=== PATIENT | female | born 1960 ===

== ENCOUNTER 2023-12-29 10:55 | Outpatient (REF) | payer OTHER, SELFPAY ==
--- NOTE | ~2023-12-29 | XR_ITS ---
EXAMINATION: XR ELBOW, RIGHT CLINICAL INFORMATION: Osteoarthritis. COMPARISON: None available. TECHNIQUE: AP, lateral, and oblique views of the right elbow. FINDINGS: The bones and soft tissues are normal. No fracture or joint effusion. Alignment is anatomic. Joint spaces are maintained. XR/XR elbow LT min 3V IMPRESSION: Normal right elbow. EXAMINATION: XR ELBOW, LEFT CLINICAL INFORMATION: Osteoarthritis. COMPARISON: None available. TECHNIQUE: AP, lateral, and oblique views of the left elbow. FINDINGS: The bones and soft tissues are normal. No fracture or joint effusion. Alignment is anatomic. Joint spaces are maintained. IMPRESSION: Normal left elbow.
--- NOTE | ~2023-12-29 | XR_ITS ---
EXAMINATION: XR ANKLE, RIGHT CLINICAL INFORMATION: Osteoarthritis. COMPARISON: None available. TECHNIQUE: AP, lateral, and mortise views of the right ankle. FINDINGS: Bony alignment and mineralization are normal. The ankle mortise is intact. No fracture or dislocation is seen. There is no right ankle joint effusion. Boehler's angle is normal. There are small posterior and plantar calcaneal spurs. A tiny enthesophyte arises from the medial malleolus. No focal soft tissue swelling, gas or foreign body is seen. XR/XR ankle LT min 3V IMPRESSION: There are small posterior plantar calcaneal spurs. Otherwise, unremarkable examination. EXAMINATION: XR ANKLE, LEFT CLINICAL INFORMATION: Osteoarthritis. COMPARISON: None available. TECHNIQUE: AP, lateral, and mortise views of the left ankle. FINDINGS: Bony alignment and mineralization are normal. The ankle mortise is intact. No fracture or dislocation is seen. There is are small posterior and minimal plantar calcaneal spurs. A tiny enthesophyte arises from the medial malleolus. No focal soft tissue swelling, gas or foreign body is seen. IMPRESSION: There are small calcaneal spurs, as detailed. The examination is otherwise unremarkable.
--- NOTE | ~2023-12-29 | XR_ITS ---
EXAMINATION: XR SHOULDER, RIGHT CLINICAL INFORMATION: Osteoarthritis. COMPARISON: None available. TECHNIQUE: AP external rotation, Grashey, scapular Y, and axillary views of the right shoulder. FINDINGS: Bony alignment and mineralization are normal. The glenohumeral joint is intact and shows very mild osteoarthritic change. The acromioclavicular and coracoclavicular intervals are normal. No fracture or dislocation is seen. A small distal acromial osteophyte is seen, and there is cortical irregularity of the greater tuberosity of the proximal right humerus. No focal soft tissue calcification or foreign body is seen. There is no right pneumothorax. XR/XR shoulder LT min 2V IMPRESSION: 1. There is very mild osteoarthritic change of the right glenohumeral joint. 2. Findings suggest right rotator cuff impingement, without laura calcific tendinitis noted. EXAMINATION: XR SHOULDER, LEFT CLINICAL INFORMATION: Osteoarthritis. COMPARISON: None available. TECHNIQUE: AP external rotation, Grashey, scapular Y, and axillary views of the left shoulder. FINDINGS: Bony alignment and mineralization are normal. The glenohumeral joint is intact. The acromioclavicular and coracoclavicular intervals are normal. No fracture or dislocation is seen. A small distal acromial undersurface osteophyte is seen. There is very mild cortical irregularity of the greater tuberosity of the proximal left humerus. No focal soft tissue calcification or foreign body is seen. There is no left pneumothorax. IMPRESSION: Findings consistent with left rotator cuff impingement, without laura calcific tendinitis seen.
--- NOTE | ~2023-12-29 | XR_ITS ---
EXAMINATION: XR ANKLE, RIGHT CLINICAL INFORMATION: Osteoarthritis. COMPARISON: None available. TECHNIQUE: AP, lateral, and mortise views of the right ankle. FINDINGS: Bony alignment and mineralization are normal. The ankle mortise is intact. No fracture or dislocation is seen. There is no right ankle joint effusion. Boehler's angle is normal. There are small posterior and plantar calcaneal spurs. A tiny enthesophyte arises from the medial malleolus. No focal soft tissue swelling, gas or foreign body is seen. XR/XR ankle RT min 3V IMPRESSION: There are small posterior plantar calcaneal spurs. Otherwise, unremarkable examination. EXAMINATION: XR ANKLE, LEFT CLINICAL INFORMATION: Osteoarthritis. COMPARISON: None available. TECHNIQUE: AP, lateral, and mortise views of the left ankle. FINDINGS: Bony alignment and mineralization are normal. The ankle mortise is intact. No fracture or dislocation is seen. There is are small posterior and minimal plantar calcaneal spurs. A tiny enthesophyte arises from the medial malleolus. No focal soft tissue swelling, gas or foreign body is seen. IMPRESSION: There are small calcaneal spurs, as detailed. The examination is otherwise unremarkable.
--- NOTE | ~2023-12-29 | XR_ITS ---
EXAMINATION: XR ELBOW, RIGHT CLINICAL INFORMATION: Osteoarthritis. COMPARISON: None available. TECHNIQUE: AP, lateral, and oblique views of the right elbow. FINDINGS: The bones and soft tissues are normal. No fracture or joint effusion. Alignment is anatomic. Joint spaces are maintained. XR/XR elbow RT min 3V IMPRESSION: Normal right elbow. EXAMINATION: XR ELBOW, LEFT CLINICAL INFORMATION: Osteoarthritis. COMPARISON: None available. TECHNIQUE: AP, lateral, and oblique views of the left elbow. FINDINGS: The bones and soft tissues are normal. No fracture or joint effusion. Alignment is anatomic. Joint spaces are maintained. IMPRESSION: Normal left elbow.
--- NOTE | ~2023-12-29 | XR_ITS ---
EXAMINATION: XR HAND/WRIST, RIGHT CLINICAL INFORMATION: Osteoarthritis. COMPARISON: None TECHNIQUE: PA, lateral, and oblique views of the right hand and wrist. FINDINGS: Bony alignment and mineralization are normal. There is an ulnar minus variance. No fracture or dislocation is seen. The proximal and distal carpal rows are intact. There is a tiny periarticular calcification adjacent to the interphalangeal joint of the thumb. There is no abnormal bone erosion. No focal soft tissue swelling, gas or foreign body is seen. XR/XR hand wrist LT IMPRESSION: There is minimal osteoarthritic change of the interphalangeal joint of the right thumb. The examination is otherwise unremarkable. EXAMINATION: XR HAND/WRIST, LEFT CLINICAL INFORMATION: Osteoarthritis. COMPARISON: None TECHNIQUE: PA, lateral, and oblique views of the left hand and wrist. FINDINGS: Bony alignment and mineralization are normal. There is an ulnar minus variance. No fracture or dislocation is seen. The proximal and distal carpal rows are intact. There is very mild osteoarthritic change of the interphalangeal joint of the thumb. No abnormal bone erosion is seen. There is no focal soft tissue spleen, gas or foreign body. IMPRESSION: There is very mild osteoarthritic change of the interphalangeal joint of the left thumb. No fracture or dislocation is seen. There is no abnormal bone erosion.
--- NOTE | ~2023-12-29 | XR_ITS ---
EXAMINATION: XR SHOULDER, RIGHT CLINICAL INFORMATION: Osteoarthritis. COMPARISON: None available. TECHNIQUE: AP external rotation, Grashey, scapular Y, and axillary views of the right shoulder. FINDINGS: Bony alignment and mineralization are normal. The glenohumeral joint is intact and shows very mild osteoarthritic change. The acromioclavicular and coracoclavicular intervals are normal. No fracture or dislocation is seen. A small distal acromial osteophyte is seen, and there is cortical irregularity of the greater tuberosity of the proximal right humerus. No focal soft tissue calcification or foreign body is seen. There is no right pneumothorax. XR/XR shoulder RT min 2V IMPRESSION: 1. There is very mild osteoarthritic change of the right glenohumeral joint. 2. Findings suggest right rotator cuff impingement, without laura calcific tendinitis noted. EXAMINATION: XR SHOULDER, LEFT CLINICAL INFORMATION: Osteoarthritis. COMPARISON: None available. TECHNIQUE: AP external rotation, Grashey, scapular Y, and axillary views of the left shoulder. FINDINGS: Bony alignment and mineralization are normal. The glenohumeral joint is intact. The acromioclavicular and coracoclavicular intervals are normal. No fracture or dislocation is seen. A small distal acromial undersurface osteophyte is seen. There is very mild cortical irregularity of the greater tuberosity of the proximal left humerus. No focal soft tissue calcification or foreign body is seen. There is no left pneumothorax. IMPRESSION: Findings consistent with left rotator cuff impingement, without laura calcific tendinitis seen.
--- NOTE | ~2023-12-29 | XR_ITS ---
EXAMINATION: XR FOOT, RIGHT CLINICAL INFORMATION: Osteoarthritis. COMPARISON: None available. TECHNIQUE: AP, lateral, and oblique views of the right foot. FINDINGS: Bony alignment and mineralization are normal. No fracture, dislocation or right ankle joint effusion is seen. Boehler's angle is normal. There are small posterior and plantar calcaneal spurs. No focal soft tissue swelling, gas or foreign body is seen. XR/XR foot LT min 3V IMPRESSION: 1. No fracture, dislocation or right ankle joint effusion is seen. 2. There are small posterior and plantar calcaneal spurs. EXAMINATION: XR FOOT, LEFT CLINICAL INFORMATION: Osteoarthritis. COMPARISON: None available. TECHNIQUE: AP, lateral, and oblique views of the left foot. FINDINGS: Bony alignment and mineralization are normal. No fracture, dislocation or left ankle joint effusion is seen. Boehler's angle is normal. There are small posterior and minimal plantar calcaneal spurs. No focal soft tissue swelling, gas or foreign body is seen. IMPRESSION: 1. No fracture, dislocation or left ankle joint effusion is seen. 2. There are small posterior and minimal plantar calcaneal spurs.
--- NOTE | ~2023-12-29 | XR_ITS ---
EXAMINATION: XR HAND/WRIST, RIGHT CLINICAL INFORMATION: Osteoarthritis. COMPARISON: None TECHNIQUE: PA, lateral, and oblique views of the right hand and wrist. FINDINGS: Bony alignment and mineralization are normal. There is an ulnar minus variance. No fracture or dislocation is seen. The proximal and distal carpal rows are intact. There is a tiny periarticular calcification adjacent to the interphalangeal joint of the thumb. There is no abnormal bone erosion. No focal soft tissue swelling, gas or foreign body is seen. XR/XR hand wrist RT IMPRESSION: There is minimal osteoarthritic change of the interphalangeal joint of the right thumb. The examination is otherwise unremarkable. EXAMINATION: XR HAND/WRIST, LEFT CLINICAL INFORMATION: Osteoarthritis. COMPARISON: None TECHNIQUE: PA, lateral, and oblique views of the left hand and wrist. FINDINGS: Bony alignment and mineralization are normal. There is an ulnar minus variance. No fracture or dislocation is seen. The proximal and distal carpal rows are intact. There is very mild osteoarthritic change of the interphalangeal joint of the thumb. No abnormal bone erosion is seen. There is no focal soft tissue spleen, gas or foreign body. IMPRESSION: There is very mild osteoarthritic change of the interphalangeal joint of the left thumb. No fracture or dislocation is seen. There is no abnormal bone erosion.
--- NOTE | ~2023-12-29 | XR_ITS ---
EXAMINATION: XR FOOT, RIGHT CLINICAL INFORMATION: Osteoarthritis. COMPARISON: None available. TECHNIQUE: AP, lateral, and oblique views of the right foot. FINDINGS: Bony alignment and mineralization are normal. No fracture, dislocation or right ankle joint effusion is seen. Boehler's angle is normal. There are small posterior and plantar calcaneal spurs. No focal soft tissue swelling, gas or foreign body is seen. XR/XR foot RT min 3V IMPRESSION: 1. No fracture, dislocation or right ankle joint effusion is seen. 2. There are small posterior and plantar calcaneal spurs. EXAMINATION: XR FOOT, LEFT CLINICAL INFORMATION: Osteoarthritis. COMPARISON: None available. TECHNIQUE: AP, lateral, and oblique views of the left foot. FINDINGS: Bony alignment and mineralization are normal. No fracture, dislocation or left ankle joint effusion is seen. Boehler's angle is normal. There are small posterior and minimal plantar calcaneal spurs. No focal soft tissue swelling, gas or foreign body is seen. IMPRESSION: 1. No fracture, dislocation or left ankle joint effusion is seen. 2. There are small posterior and minimal plantar calcaneal spurs.
[2023-12-29 13:18] LABS: MANUAL DIFF FLAG NO
[2023-12-29 14:01] LABS: Basophils Percent Auto 0.4 % (0-2); Eosinophils Percent Auto 0.1 % (0-4); Hematocrit 41.6 % (37.0-47.0); Hemoglobin 13.5 g/dl (12.0-16.0); Imm Gran Abs Auto 0.04 X10*3/uL (0.00-0.03); Imm Gran Pct Auto 0.4 % (0.0-0.4); Lymphocytes Absolute Auto 3.1 X10*3/uL (1.2-4.9); Lymphocytes Percent Auto 31.4 % (20-40); Mean Corpuscular HGB Conc 32.5 g/dl (31.0-35.0); Mean Corpuscular Hemoglobin 27.4 pg (27.0-33.0); Mean Corpuscular Volume 84.6 fL (80.0-98.0); Mean Platelet Volume 9.9 fL (9.4-12.3); Monocytes Absolute Auto 0.8 X10*3/uL (0.1-1.2); Monocytes Percent Auto 7.9 % (2-11); Neutrophils Absolute Auto 5.9 x10*3/uL (2.0-8.3); Neutrophils Percent Auto 59.8 % (45-73); Platelet Count 368 X10*3/uL (160-400); Red Blood Count 4.92 X10*6/uL (4.20-5.50); Red Cell Distribution Width 13.7 % (11.0-16.0); White Blood Count 9.9 X10*3/uL (4.8-10.8)
[2023-12-29 14:12] LABS: Estimated Average Glucose 128 mg/dL; Hemoglobin A1c % 6.1 % (<6.0)
[2023-12-29 14:15] LABS: Alanine Aminotransferase 22 U/L (0-31); Albumin Level 4.5 g/dL (3.5-5.0); Alkaline Phosphatase 110 U/L (39-117); Anion Gap 14 (12-20); Aspartate Amino Transferase 27 U/L (5-31); Bilirubin Total 0.6 mg/dL (0.0-1.0); Blood Urea Nitrogen 14 mg/dL (9-16); C Reactive Protein 1.55 mg/dL (< or = 0.50); Calcium 9.9 mg/dL (8.4-10.2); Carbon Dioxide 28 mmol/L (22-29); Chloride 103 mmol/L (96-108); Estimated Glomerular Filt Rate 49; Glucose Random 83 mg/dL (60-115); Potassium 3.6 mmol/L (3.3-5.1); Sodium 141 mmol/L (135-145); Total Protein 8.2 g/dL (6.5-8.0)
[2023-12-29 14:23] LABS: Rheumatoid Factor < 13.0 IU/mL (<15.0)
[2023-12-29 15:03] LABS: Appearance Urine Clear; Color Urine Yellow; Glucose Urine UA Negative (Negative); Leukocyte Esterase Urine Trace (Negative); Nitrite Urine Negative (Negative); PH 6.5 (5.0-9.0); Specific Gravity - Urine 1.015 (1.005-1.025); UMIC TRIGGER UA YES; Urine Blood Negative (Negative); Urine Ketones Negative (Negative); Urine Protein 30 (1+) mg/dL (Neg-Trace)
[2023-12-29 15:26] LABS: Bacteria Urine None Seen (None Seen); Hyaline Casts Urine 0-2 /LPF (0-2); RBC Urine 0-2 /HPF (0-2); WBC Urine 0-5 /HPF (0-5)
[2023-12-29 16:26] LABS: Creatinine Urine 99.45 mg/dL; Protein/Creatinine Ratio, Ur 0.25 (<0.2); Total Protein Urine Random 25 mg/dL (<12)
[2023-12-30 08:16] LABS: HBS Num1 0.39 mIU/mL (0-7.99); HBc Num1 0.15 S/CO (0.00-0.79); HBsAGNum1 0.28 S/CO (0.00-0.99); Hepatitis A Antibody IgM 0.15 Index (0-0.79); Hepatitis B Core Antibody Nonreactive (Nonreactive); Hepatitis B Surface Antigen Negative (Negative); ~HepC Num1 0.12 S/CO (0.00-0.79); ~Hepatitis A Antibody IgM Nonreactive (Nonreactive); ~Hepatitis B Surface Antibody NONREACTIVE (Nonreactive); ~Hepatitis C Antibody Nonreactive (Nonreactive)
[2023-12-30 09:08] LABS: Lyme Abs Screen <0.90 index
[2023-12-30 12:23] LABS: Complement C3 77 mg/dL (83-193)
[2023-12-30 20:38] LABS: Anti DNA DS Antibody 1 IU/mL; Antibody to SS-A Antigen <1.0 NEG AI (<1.0 NEG); Antibody to SS-B Antigen <1.0 NEG AI (<1.0 NEG); SM/Ribonucleoprotein Ab <1.0 NEG AI (<1.0 NEG); Smith Protein <1.0 NEG AI (<1.0 NEG)
[2024-01-01 00:28] LABS: TS Negative Control Passed; TS Panel A 0; TS Panel B 0; TS Positive Control Passed; TSpotTB Negative (Negative)
[2024-01-02 11:13] LABS: Cyclic Citrullinated Peptide <16 UNITS
[2024-01-02 14:44] LABS: Anti Nuclear Antibody Screen NEGATIVE (NEGATIVE)
[2024-01-02 22:08] LABS: Angiotensin Converting Enzyme 26.4 U/L (9-67)
[2024-01-03 14:48] LABS: IgA 137 mg/dL (70-320); IgG 1334 mg/dL (600-1540); IgM 278 mg/dL (50-300)
[2024-01-03 22:57] LABS: Prot Elec - Albumin 4.4 g/dL (3.8-4.8); Prot Elec - Alpha1 0.3 g/dL (0.2-0.3); Prot Elec - Alpha2 0.9 g/dL (0.5-0.9); Prot Elec - Beta 1 0.6 g/dL (0.4-0.6); Prot Elec - Beta 2 0.3 g/dL (0.2-0.5); Prot Elec - Gamma 1.3 g/dL (0.8-1.7); Prot Elec - Total Protein 7.8 g/dL (6.1-8.1)
[2024-01-04 12:03] LABS: DNAds, Crithidia Antibody Negative (Negative)
[2024-01-04 16:24] LABS: HLA B27 Negative (Negative)
== END 2023-12-29 10:56 | disposition home or self-care (01) ==
LOC: HO.XRAY 10:55
PROVIDERS: PCP Internal Medicine; Referring Provider Internal Medicine; Visit Provider Student in an Organized Health Care Education/Training Program
DX: Z11.59 Encounter for screening for other viral diseases (principal); Z11.7 Encounter for testing for latent tuberculosis infection; M45.9 Ankylosing spondylitis of unspecified sites in spine; M32.9 Systemic lupus erythematosus, unspecified; D86.9 Sarcoidosis, unspecified; E11.22 Type 2 diabetes mellitus with diabetic chronic kidney disease; N18.30 Chronic kidney disease, stage 3 unspecified; M25.50 Pain in unspecified joint; Z72.89 Other problems related to lifestyle; M19.032 Primary osteoarthritis, left wrist; M19.031 Primary osteoarthritis, right wrist; M19.042 Primary osteoarthritis, left hand; M19.041 Primary osteoarthritis, right hand; M77.32 Calcaneal spur, left foot; M77.31 Calcaneal spur, right foot
CPT/HCPCS: 36415; 73030; 73080; 73110; 73130; 73610; 73630; 80053; 81001; 82164; 82570; 82784; 83036; 84156; 84165; 85025; 86038; 86140; 86160; 86200; 86225; 86235; 86255; 86334; 86431; 86481; 86617; 86618; 86704; 86706; 86709; 86803; 86812; 87340

== ENCOUNTER 2023-12-29 10:55 | Outpatient (AMB) | payer OTHER, SELFPAY ==
--- NOTE | 2023-12-29 11:03 | MHC.OFFVIS ---
Vital Signs 12/29/23 11:10 Height 5 ft 7 in Weight 213 lb 13.574 oz BMI 33.5 BP 142/76 H Blood Pressure Location Rt brachial Position Sitting Pulse 76 Pulse Source Pulse Oximeter Pulse Oximetry (%) 98 Oxygen Delivery Method Room Air Intake Visit Reasons: Joint Pain/Elev CRP Intake Note: New patient, externally referred by [facility], presents to office today for joint pain/Elevated CRP. Cousin with Lupus, dad has psoarisis and niece has PSA. Gre Tutor Required: No Accompanied by: Self / Same As Patient Allergies nystatin Allergy (Severe, Verified 12/29/23 11:14) Anaphylaxis latex Adverse Reaction (Unknown, Verified 12/29/23 11:14) Rash tetracycline Adverse Reaction (Unknown, Verified 12/29/23 11:14) Rash Medication List - Last Reconciled 12/29/23 by Esteban Tolentino MD albuterol sulfate 90 mcg/actuation inhalation bupropion HCl SR 150 mg PO QAM calcitriol mcg PO empagliflozin (Jardiance) 10 mg PO DAILY fluoxetine 40 mg PO DAILY gabapentin 600 mg PO BID losartan 25 mg PO DAILY losartan 100 mg PO DAILY lovastatin 40 mg PO DAILY metformin ER 500 mg PO DAILY ondansetron 4 mg PO Q8H PRN spironolacton-hydrochlorothiaz 25-25 mg tabs PO tizanidine 2 mg PO BEDTIME HPI Comments Details: This is a 63-year-old female who presents for evaluation of multiple joint pain and swelling. Patient states that she was diagnosed with fibromyalgia about 4 years ago. She was started on gabapentin at that time. She stated that back in August of 2023 she developed some redness of her eyes, she went to the eye doctor and was told that she has an infection. Afterwards she started developing multiple joint pain and swelling including her hands, wrists, ankles, knees. She went to the emergency room once and was given steroids with improvement. Since then she has been having intermittent episodes of joint pain and swelling affecting different joints. She has morning stiffness lasting 20-30 minutes. She takes Tylenol as needed but does not take any NSAIDs due to her history of CKD. She states that she was diagnosed with psoriasis 2-3 years ago based on nail psoriasis. States that she was evaluated by a aviation engineer and she had a nail biopsy. Father had psoriasis, she has a niece with psoriatic arthritis Patient denies any history of DVT/PE. She had 2 pregnancies, 1 live and 1 . [facility] Medical History NICHOLAS (obstructive sleep apnea) Obese Major depression Hyperlipidemia, unspecified IBS (irritable bowel syndrome) HTN (hypertension) Gastric acid decreased Fibromyalgia Endometrial hyperplasia CKD stage 3 due to type 2 diabetes mellitus Cholecystitis Cervical radiculopathy due to degenerative joint disease of spine CTS (carpal tunnel syndrome) Asthma Surgical History History of gastric surgery Previous section History of cholecystectomy Family History Mother Colon cancer Father Psoriasis Other Autoimmune disease Social History Alcohol intake: current Alcohol intake frequency: does not drink Patient Tobacco Use Status: Never used Tobacco Current occupational status: employed 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 Reproductive History Menstrual Total pregnancies: 2 Full term: 1 Ab spontaneous: 1 Review of Systems Const Denies fever(s) Eyes Reports loss of vision ENT Reports dizziness and Reports tinnitus GI Reports constipation Musc Reports arthralgias, Reports joint swelling and Reports stiffness Skin/Breast Denies rash Neuro Reports dizziness and Reports loss of vision Endo Reports polydipsia Physical Exam Vital Signs: Last Vital Signs Pulse 76 12/29/23 11:10 BP 142/76 H 12/29/23 11:10 Pulse Ox 98 12/29/23 11:10 Oxygen Delivery Method Room Air 12/29/23 11:10 BMI result Body Mass Index 33.5 Const General: cooperative, healthy appearing and comfortable Nutritional Appearance: obese Orientation/consciousness: patient oriented x3 Limitations: no limitations HEENT Head: Yes normocephalic and Yes atraumatic Mouth: moist mucous membranes Resp Effort & Inspection: normal respiratory effort and able to speak in complete sentences Auscultation: clear to auscultation bilaterally Cardio Rate: regular rate Rhythm: regular rhythm Skin General skin exam: no rashes or lesions noted Neuro General: patient oriented x3 Extrem Other: Right wrist pain with full flexion and extension Left thumb swelling and left 1st MCP tenderness No tender flexor or extensor tenderness both hands No elbow pain with full flexion-extension Positive empty can test on the right Positive Speed's test on the right Minimal knee pain with full flexion and extension Negative straight leg raise test bilaterally Negative Fabere test bilaterally Positive MTP squeeze test left foot Richard test 10-15.5 cm Assessment & Plan Assessment & Plan (1) Polyarthralgia: Code(s): M25.50 - Pain in unspecified joint Category: Medical Plan: This is a 63-year-old female with history of fibromyalgia who presents for evaluation of abrupt onset of multiple joint pain and swelling that started 08/2023. She also has history of nail psoriasis diagnosed proximally 2019. Positive family history of psoriasis. Previous labs showed elevated inflammatory markers. Clinical picture suspicious for new onset inflammatory arthritis. Will order comprehensive serology to screen for underlying autoimmune rheumatic disease. Check x-rays of involved joints Follow-up in 5-6 weeks Plan I spent 48 minutes reviewing patient's chart, evaluating patient, ordering diagnostic workup, counseling patient and documenting in the chart Orders: Orders Comprehensive Met. Panel Today M1. - Unspecified osteoarthritis, unspecified site C Reactive Protein Today M1.90 - Unspecified osteoarthritis, unspecified site Hemoglobin A1c Today E11.22 - Type 2 diabetes mellitus with diabetic chronic kidney disease, N18.30 - Chronic kidney disease, stage 3 unspecified Lyme IgG/IgM w/reflex to WB Today M19.90 - Unspecified osteoarthritis, unspecified site HLA B27 Today M45.9 - Ankylosing spondylitis of unspecified sites in spine Rheumatoid Factor Today M19.90 - Unspecified osteoarthritis, unspecified site Cyclic Citrullinated Peptide Today M19.90 - Unspecified osteoarthritis, unspecified site Anti Extractable Nuclear Ag Today M32.9 - Systemic lupus erythematosus, unspecified Complement C3 Today M32.9 - Systemic lupus erythematosus, unspecified Complement C4 Today M32.9 - Systemic lupus erythematosus, unspecified Sjogren's Antibodies Today M32.9 - Systemic lupus erythematosus, unspecified UA w Microscopic Today M32.9 - Systemic lupus erythematosus, unspecified XR shoulder RT min 2V Today M19.90 - Unspecified osteoarthritis, unspecified site XR ankle LT min 3V Today M19.90 - Unspecified osteoarthritis, unspecified site XR foot LT min 3V Today M19.90 - Unspecified osteoarthritis, unspecified site Complete Blood Count Auto Diff Today M19. - Unspecified osteoarthritis, unspecified site Angiotensin Converting Enzyme Today D86.9 - Sarcoidosis, unspecified Hepatitis A,B,C Profile Today Z11.59 - Encounter for screening for other viral diseases Immunofixation Pnl, Serum Today M19.90 - Unspecified osteoarthritis, unspecified site Protein Electrophoresis, Serum Today M19.90 - Unspecified osteoarthritis, unspecified site T Spot TB Today Z11.7 - Encounter for testing for latent tuberculosis infection JAVIER Reflex Titer and Pattern Today M32.9 - Systemic lupus erythematosus, unspecified Anti DNA DS Antibody Today M32.9 - Systemic lupus erythematosus, unspecified DNA Double Stranded-Crithidia Today M32.9 - Systemic lupus erythematosus, unspecified Protein Creatinine Ratio, Ur Today M32.9 - Systemic lupus erythematosus, unspecified XR hand wrist LT Today M19.90 - Unspecified osteoarthritis, unspecified site XR hand wrist RT Today M19.90 - Unspecified osteoarthritis, unspecified site XR shoulder LT min 2V Today M19.90 - Unspecified osteoarthritis, unspecified site XR ankle RT min 3V Today M19.90 - Unspecified osteoarthritis, unspecified site XR foot RT min 3V Today M19.90 - Unspecified osteoarthritis, unspecified site XR elbow LT min 3V Today M19.90 - Unspecified osteoarthritis, unspecified site XR elbow RT min 3V Today M19.90 - Unspecified osteoarthritis, unspecified site Coding Level of Care Code New Pt Level 4 (40563) Diagnoses Polyarthralgia M25.50
[2023-12-29 11:10] VITALS: BP 142/76; PULSE 76; O2SAT 98; BMI 33.5
== END 2023-12-29 11:49 | disposition home or self-care (01) ==
PROVIDERS: PCP Internal Medicine; Referring Provider Internal Medicine; Visit Provider Student in an Organized Health Care Education/Training Program
DX: M25.50 Pain in unspecified joint (principal)
CPT/HCPCS: 99204

== ENCOUNTER 2024-02-09 11:15 | Outpatient (AMB) | payer OTHER, SELFPAY ==
--- NOTE | 2024-02-09 11:16 | MHC.OFFVIS ---
Vital Signs 02/09/24 11:19 Height 5 ft 7 in Weight 212 lb 4.882 oz BMI 33.2 BP 140/80 H Blood Pressure Location Lt brachial Position Sitting Pulse 72 Pulse Source Pulse Oximeter Pulse Oximetry (%) 98 Oxygen Delivery Method Room Air Intake Visit Reasons: PsA Intake Note: Patient presents for PsA. Allergies nystatin Allergy (Severe, Verified 02/09/24 11:19) Anaphylaxis latex Adverse Reaction (Unknown, Verified 02/09/24 11:19) Rash tetracycline Adverse Reaction (Unknown, Verified 02/09/24 11:19) Rash Medication List - Last Reconciled 02/09/24 by Esteban Tolentino MD albuterol sulfate 90 mcg/actuation inhalation bupropion HCl SR 150 mg PO QAM calcitriol mcg PO empagliflozin (Jardiance) 10 mg PO DAILY fluoxetine 40 mg PO DAILY gabapentin 600 mg PO BID losartan 25 mg PO DAILY losartan 100 mg PO DAILY lovastatin 40 mg PO DAILY metformin ER 500 mg PO DAILY ondansetron 4 mg PO Q8H PRN spironolacton-hydrochlorothiaz 25-25 mg tabs PO tizanidine 2 mg PO BEDTIME HPI Comments Details: Patient returns for follow-up after completion of her diagnostic workup. She continues to feel about the same. She takes Tylenol 1000 mg q.4 hours Initial history: This is a 63-year-old female who presents for evaluation of multiple joint pain and swelling. Patient states that she was diagnosed with fibromyalgia about 4 years ago. She was started on gabapentin at that time. She stated that back in August of 2023 she developed some redness of her eyes, she went to the eye doctor and was told that she has an infection. Afterwards she started developing multiple joint pain and swelling including her hands, wrists, ankles, knees. She went to the emergency room once and was given steroids with improvement. Since then she has been having intermittent episodes of joint pain and swelling affecting different joints. She has morning stiffness lasting 20-30 minutes. She takes Tylenol as needed but does not take any NSAIDs due to her history of CKD. She states that she was diagnosed with psoriasis 2-3 years ago based on nail psoriasis. States that she was evaluated by a plumbing mechanic and she had a nail biopsy. Father had psoriasis, she has a niece with psoriatic arthritis Patient denies any history of DVT/PE. She had 2 pregnancies, 1 live and 1 . [facility] Medical History NICHOLAS (obstructive sleep apnea) Obese Major depression Hyperlipidemia, unspecified IBS (irritable bowel syndrome) HTN (hypertension) Gastric acid decreased Fibromyalgia Endometrial hyperplasia CKD stage 3 due to type 2 diabetes mellitus Cholecystitis Cervical radiculopathy due to degenerative joint disease of spine CTS (carpal tunnel syndrome) Asthma Surgical History History of gastric surgery Previous section History of cholecystectomy Family History Mother Colon cancer Father Psoriasis Other Autoimmune disease Social History Alcohol intake: current Alcohol intake frequency: does not drink Patient Tobacco Use Status: Never used Tobacco Current occupational status: employed 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 Reproductive History Menstrual Total pregnancies: 2 Full term: 1 Ab spontaneous: 1 Review of Systems Musc Reports arthralgias, Reports joint swelling and Reports stiffness Skin/Breast Denies rash Physical Exam Vital Signs: Last Vital Signs Pulse 72 02/09/24 11:19 BP 140/80 H 02/09/24 11:19 Pulse Ox 98 02/09/24 11:19 Oxygen Delivery Method Room Air 02/09/24 11:19 BMI result Body Mass Index 33.2 Const General: cooperative, healthy appearing and comfortable Nutritional Appearance: obese Orientation/consciousness: patient oriented x3 Limitations: no limitations HEENT Head: Yes normocephalic and Yes atraumatic Resp Effort & Inspection: normal respiratory effort and able to speak in complete sentences Cardio Rate: regular rate Rhythm: regular rhythm Skin General skin exam: no rashes or lesions noted Neuro General: patient oriented x3 Extrem Other: Right wrist pain with full flexion and extension Left hand multiple flexor tendon tenderness No elbow pain with full flexion-extension Positive empty can test on the right Positive Speed's test on the right Minimal knee pain with full flexion and extension Left ankle tenderness and minimal swelling Negative straight leg raise test bilaterally Negative Fabere test bilaterally Positive MTP squeeze test left foot Richard test 10-15.5 cm Assessment & Plan Assessment & Plan (1) Psoriatic arthritis: Code(s): L40.50 - Arthropathic psoriasis, unspecified Category: Medical Plan: This is a 63-year-old female with history of fibromyalgia & nail psoriasis who presents for evaluation of abrupt onset of multiple joint pain and swelling that started 08/2023. Exam she has multiple tender joints. Inflammatory markers are elevated. Serologies are negative. Clinical picture consistent with new onset seronegative arthritis, likely psoriatic arthritis. We will need to start DMARDs. Discussed risks and benefits of methotrexate. Patient agreed to proceed. Start methotrexate 15 mg weekly Start folic acid 1 mg daily Patient does not take NSAIDs due to her CKD. Can use a small dose of prednisone 5-10 mg once daily only as needed for joint pain. History of diabetes Labs before next visit in 2 months (2) technician terminal and repeater methotrexate user: Code(s): Z79.631 - [facility] (current) use of antimetabolite agent Category: Medical Plan: Monitor safety labs Patient does not consume alcohol Plan I spent 48 minutes reviewing patient's chart, evaluating patient, ordering diagnostic workup, counseling patient and documenting in the chart Orders: Orders Complete Blood Count Auto Diff 2 Months L40.50 - Arthropathic psoriasis, unspecified, Z79.631 - [facility] (current) use of antimetabolite agent Comprehensive Met. Panel 2 Months L40.50 - Arthropathic psoriasis, unspecified, Z79.631 - [facility] (current) use of antimetabolite agent C Reactive Protein 2 Months L40.50 - Arthropathic psoriasis, unspecified, Z79.631 - technician terminal and repeater (current) use of antimetabolite agent Erythrocyte Sedimentation Rate 2 Months L40.50 - Arthropathic psoriasis, unspecified, Z79.631 - technician terminal and repeater (current) use of antimetabolite agent Medications: New prednisone 5 - 10 mg (1 - 2 x 5 mg) PO DAILY PRN 30 tabs 0RF pain folic acid 1 mg PO DAILY 90 tabs 1RF methotrexate sodium 15 mg (6 x 2.5 mg) PO QWEEK 48 tabs 0RF folic acid 2 mg (2 x 1 mg) PO DAILY 90 tabs 1RF Coding Level of Care Code Est Pt Level 4 (38016) Diagnoses Psoriatic arthritis L40.50 [facility] methotrexate user Z79.631
[2024-02-09 11:19] VITALS: BP 140/80; PULSE 72; O2SAT 98; BMI 33.2
== END 2024-02-09 11:37 | disposition home or self-care (01) ==
PROVIDERS: PCP Internal Medicine; Visit Provider Student in an Organized Health Care Education/Training Program
DX: L40.50 Arthropathic psoriasis, unspecified (principal); Z79.631 Long term (current) use of antimetabolite agent
CPT/HCPCS: 99214

== ENCOUNTER → 2024-02-09 11:15 | Outpatient (BNVA) | payer OTHER, SELFPAY | PROVIDERS: PCP Internal Medicine; Visit Provider Student in an Organized Health Care Education/Training Program ==

== ENCOUNTER 2024-03-21 08:23 | Outpatient (REF) | payer OTHER, SELFPAY ==
[2024-03-21 09:57] LABS: MANUAL DIFF FLAG NO
[2024-03-21 10:08] LABS: Basophils Absolute Auto 0.1 X10*3/uL (0.0-0.2); Basophils Percent Auto 0.6 % (0-2); Eosinophils Percent Auto 0.2 % (0-4); Hematocrit 42.3 % (37.0-47.0); Hemoglobin 13.6 g/dl (12.0-16.0); Imm Gran Abs Auto 0.04 X10*3/uL (0.00-0.03); Imm Gran Pct Auto 0.4 % (0.0-0.4); Lymphocytes Absolute Auto 2.7 X10*3/uL (1.2-4.9); Lymphocytes Percent Auto 26.8 % (20-40); Mean Corpuscular HGB Conc 32.2 g/dl (31.0-35.0); Mean Corpuscular Hemoglobin 27.7 pg (27.0-33.0); Mean Corpuscular Volume 86.2 fL (80.0-98.0); Mean Platelet Volume 9.9 fL (9.4-12.3); Monocytes Absolute Auto 0.5 X10*3/uL (0.1-1.2); Monocytes Percent Auto 5.4 % (2-11); Neutrophils Absolute Auto 6.6 x10*3/uL (2.0-8.3); Neutrophils Percent Auto 66.6 % (45-73); Platelet Count 374 X10*3/uL (160-400); Red Blood Count 4.91 X10*6/uL (4.20-5.50); White Blood Count 9.9 X10*3/uL (4.8-10.8)
[2024-03-21 10:17] LABS: Alanine Aminotransferase 30 U/L (0-31); Albumin Level 4.4 g/dL (3.5-5.0); Alkaline Phosphatase 100 U/L (39-117); Anion Gap 16 (12-20); Aspartate Amino Transferase 27 U/L (5-31); Blood Urea Nitrogen 18 mg/dL (9-16); C Reactive Protein 2.28 mg/dL (< or = 0.50); Calcium 9.9 mg/dL (8.4-10.2); Carbon Dioxide 26 mmol/L (22-29); Chloride 103 mmol/L (96-108); Estimated Glomerular Filt Rate 45; Glucose Random 113 mg/dL (60-115); Sodium 141 mmol/L (135-145); Total Protein 7.9 g/dL (6.5-8.0)
[2024-03-21 10:49] LABS: Erythrocyte Sedimentation Rate 25 MM/HR (0-20)
== END 2024-03-21 08:24 | disposition home or self-care (01) ==
LOC: HO.HMGCLDS 08:23
PROVIDERS: PCP Internal Medicine; Visit Provider Student in an Organized Health Care Education/Training Program
DX: L40.50 Arthropathic psoriasis, unspecified (principal); Z79.631 Long term (current) use of antimetabolite agent
CPT/HCPCS: 36415; 80053; 85025; 85652; 86140

== ENCOUNTER 2024-04-11 12:43 | Outpatient (AMB) | payer OTHER, SELFPAY ==
[2024-04-11 12:53] VITALS: BP 140/72; PULSE 67; O2SAT 99; BMI 33.8
--- NOTE | 2024-04-11 12:53 | MHC.OFFVIS ---
Vital Signs 04/11/24 12:53 Height 5 ft 7 in Weight 216 lb 0.848 oz BMI 33.8 BP 140/72 H Blood Pressure Location Lt brachial Position Sitting Pulse 67 Pulse Source Pulse Oximeter Pulse Oximetry (%) 99 Oxygen Delivery Method Room Air Intake Visit Reasons: PsA Intake Note: Patient is here for follow up on PSA, last seen on 02/09/[address] Tolentino. Allergies nystatin Allergy (Severe, Verified 04/11/24 12:54) Anaphylaxis latex Adverse Reaction (Unknown, Verified 02/09/24 11:19) Rash tetracycline Adverse Reaction (Unknown, Verified 02/09/24 11:19) Rash Medication List - Last Reconciled 04/11/24 by Esteban Tolentino MD albuterol sulfate 90 mcg/actuation inhalation bupropion HCl SR 150 mg PO QAM calcitriol mcg PO empagliflozin (Jardiance) 10 mg PO DAILY fluoxetine 40 mg PO DAILY folic acid 1 mg PO DAILY gabapentin 600 mg PO BID leucovorin calcium 5 mg PO QWEEK losartan 25 mg PO DAILY losartan 100 mg PO DAILY lovastatin 40 mg PO DAILY metformin ER 500 mg PO DAILY methotrexate sodium 15 mg (6 x 2.5 mg) PO QWEEK ondansetron 4 mg PO Q8H PRN spironolacton-hydrochlorothiaz 25-25 mg tabs PO tizanidine 2 mg PO BEDTIME HPI Comments Details: 63-year-old female with newly diagnosed psoriatic arthritis returns for follow-up. She has been taking methotrexate regularly for the last 2 months with improvement. She states that she feels significantly improved joint pains and swelling. She states that the day before she takes methotrexate she starts having some pains in different joints including her hands, wrists, shoulders. She is not using prednisone. She had mouth sores. I prescribed her Leucovorin with resolution. She continues to feel depressed. Initial history: This is a 63-year-old female who presents for evaluation of multiple joint pain and swelling. Patient states that she was diagnosed with fibromyalgia about 4 years ago. She was started on gabapentin at that time. She stated that back in August of 2023 she developed some redness of her eyes, she went to the eye doctor and was told that she has an infection. Afterwards she started developing multiple joint pain and swelling including her hands, wrists, ankles, knees. She went to the emergency room once and was given steroids with improvement. Since then she has been having intermittent episodes of joint pain and swelling affecting different joints. She has morning stiffness lasting 20-30 minutes. She takes Tylenol as needed but does not take any NSAIDs due to her history of CKD. She states that she was diagnosed with psoriasis 2-3 years ago based on nail psoriasis. States that she was evaluated by a labor relations or personnel negotiator and she had a nail biopsy. Father had psoriasis, she has a niece with psoriatic arthritis Patient denies any history of DVT/PE. She had 2 pregnancies, 1 live and 1 . [facility] Medical History (Updated 04/11/24 @ 13:21 by Esteban Tolentino MD) NICHOLAS (obstructive sleep apnea) Obese Major depression Hyperlipidemia, unspecified IBS (irritable bowel syndrome) HTN (hypertension) Gastric acid decreased Fibromyalgia Endometrial hyperplasia CKD stage 3 due to type 2 diabetes mellitus Cholecystitis Cervical radiculopathy due to degenerative joint disease of spine CTS (carpal tunnel syndrome) Asthma Surgical History History of gastric surgery Previous section History of cholecystectomy Family History Mother Colon cancer Father Psoriasis Other Autoimmune disease Social History Alcohol intake: current Alcohol intake frequency: does not drink Patient Tobacco Use Status: Never used Tobacco Current occupational status: employed 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 Reproductive History Menstrual Total pregnancies: 2 Full term: 1 Ab spontaneous: 1 Review of Systems Musc Reports arthralgias and Reports stiffness Physical Exam Vital Signs: Last Vital Signs Pulse 67 04/11/24 12:53 BP 140/72 H 04/11/24 12:53 Pulse Ox 99 04/11/24 12:53 Oxygen Delivery Method Room Air 04/11/24 12:53 BMI result Body Mass Index 33.8 Const General: cooperative, healthy appearing and comfortable Nutritional Appearance: obese Orientation/consciousness: patient oriented x3 Limitations: no limitations HEENT Head: Yes normocephalic and Yes atraumatic Resp Effort & Inspection: normal respiratory effort and able to speak in complete sentences Cardio Rate: regular rate Rhythm: regular rhythm Skin General skin exam: no rashes or lesions noted Neuro General: patient oriented x3 Extrem Other: Mild soft tissue swelling of right wrist but no tenderness or pain with flexion and extension Left wrist with no tenderness or pain with flexion-extension No active synovitis both hands Normal range of motion of elbows and shoulders without pain Positive empty can test on the right No knee pain with flexion-extension bilaterally No ankle swelling or tenderness bilaterally Assessment & Plan Assessment & Plan (1) Psoriatic arthritis: Comment: dx 01/2024 MTX 01/2024 effective Code(s): L40.50 - Arthropathic psoriasis, unspecified Category: Medical Plan: This is a 63-year-old female with newly diagnosed psoriatic arthritis who returns for follow-up. She is on methotrexate 15 mg p.o. weekly with significant improvement. Had mouth sores that were treated with Leucovorin Continue methotrexate 15 mg p.o. weekly. (may not be able to increase the dose further in the future due to CKD) Continue folic acid 1 mg daily Continue Leucovorin 5 mg once weekly the day after methotrexate Labs before next visit in 3 months (2) technician terminal and repeater methotrexate user: Code(s): Z79.631 - group home (current) use of antimetabolite agent Category: Medical Plan: Monitor safety labs Patient does not consume alcohol Continue folic acid and Leucovorin (3) Major depression: Code(s): F32.9 - Major depressive disorder, single episode, unspecified Category: Medical Plan: Consider evaluation by a psychotherapist. Follow-up with PCP Plan I spent 25 minutes reviewing patient's chart, evaluating patient, ordering diagnostic workup, counseling patient and documenting in the chart Orders: Orders Complete Blood Count Auto Diff 3 Months L40.50 - Arthropathic psoriasis, unspecified, Z79.631 - group home (current) use of antimetabolite agent Comprehensive Met. Panel 3 Months L40.50 - Arthropathic psoriasis, unspecified, Z79.631 - technician terminal and repeater (current) use of antimetabolite agent Erythrocyte Sedimentation Rate 3 Months L40.50 - Arthropathic psoriasis, unspecified, Z79.631 - group home (current) use of antimetabolite agent C Reactive Protein 3 Months L40.50 - Arthropathic psoriasis, unspecified, Z79.631 - group home (current) use of antimetabolite agent Medications: Refilled methotrexate sodium 15 mg (6 x 2.5 mg) PO QWEEK 78 tabs 0RF Discontinued prednisone Discontinued Reason: Doctor's Order 5 - 10 mg (1 - 2 x 5 mg) PO DAILY PRN 30 tabs 0RF pain Coding Level of Care Code Est Pt Level 4 (64135) Diagnoses Psoriatic arthritis L40.50 technician terminal and repeater methotrexate user Z79.631 Major depression F32.9
== END 2024-04-11 13:16 | disposition home or self-care (01) ==
PROVIDERS: PCP Internal Medicine; Visit Provider Student in an Organized Health Care Education/Training Program
DX: L40.50 Arthropathic psoriasis, unspecified (principal); Z79.631 Long term (current) use of antimetabolite agent; F32.9 Major depressive disorder, single episode, unspecified
CPT/HCPCS: 99214

== ENCOUNTER → 2024-04-11 12:43 | Outpatient (BNVA) | payer OTHER, SELFPAY | PROVIDERS: PCP Internal Medicine; Visit Provider Student in an Organized Health Care Education/Training Program ==

== ENCOUNTER 2024-07-16 12:28 | Outpatient (REF) | payer OTHER, SELFPAY ==
[2024-07-16 13:16] LABS: MANUAL DIFF FLAG NO
[2024-07-16 13:24] LABS: Basophils Absolute Auto 0.1 X10*3/uL (0.0-0.2); Basophils Percent Auto 0.8 % (0-2); Eosinophils Absolute Auto 0.2 X10*3/uL (0.0-0.4); Eosinophils Percent Auto 1.7 % (0-4); Hematocrit 40.7 % (37.0-47.0); Hemoglobin 13.2 g/dl (12.0-16.0); Imm Gran Abs Auto 0.04 X10*3/uL (0.00-0.03); Imm Gran Pct Auto 0.4 % (0.0-0.4); Lymphocytes Absolute Auto 3.5 X10*3/uL (1.2-4.9); Lymphocytes Percent Auto 30.4 % (20-40); Mean Corpuscular HGB Conc 32.4 g/dl (31.0-35.0); Mean Corpuscular Volume 89.5 fL (80.0-98.0); Mean Platelet Volume 9.8 fL (9.4-12.3); Monocytes Absolute Auto 0.8 X10*3/uL (0.1-1.2); Monocytes Percent Auto 7.4 % (2-11); Neutrophils Absolute Auto 6.8 x10*3/uL (2.0-8.3); Neutrophils Percent Auto 59.3 % (45-73); Platelet Count 405 X10*3/uL (160-400); Red Blood Count 4.55 X10*6/uL (4.20-5.50); Red Cell Distribution Width 14.3 % (11.0-16.0); White Blood Count 11.4 X10*3/uL (4.8-10.8)
[2024-07-16 14:00] LABS: Erythrocyte Sedimentation Rate 40 MM/HR (0-20)
[2024-07-16 14:42] LABS: Alanine Aminotransferase 21 U/L (0-31); Albumin Level 4.6 g/dL (3.5-5.0); Alkaline Phosphatase 122 U/L (39-117); Anion Gap 15 (12-20); Aspartate Amino Transferase 29 U/L (5-31); Bilirubin Total 0.5 mg/dL (0.0-1.0); Blood Urea Nitrogen 10 mg/dL (9-16); C Reactive Protein 1.94 mg/dL (< or = 0.50); Calcium 10.2 mg/dL (8.4-10.2); Carbon Dioxide 26 mmol/L (22-29); Chloride 104 mmol/L (96-108); Estimated Glomerular Filt Rate 55; Glucose Random 95 mg/dL (60-115); Sodium 141 mmol/L (135-145); Total Protein 8.4 g/dL (6.5-8.0)
== END 2024-07-16 12:29 | disposition home or self-care (01) ==
LOC: HO.HHCL 12:28
PROVIDERS: Visit Provider Student in an Organized Health Care Education/Training Program
DX: L40.50 Arthropathic psoriasis, unspecified (principal); Z79.631 Long term (current) use of antimetabolite agent
CPT/HCPCS: 36415; 80053; 85025; 85652; 86140

== ENCOUNTER 2024-07-25 08:52 | Outpatient (AMB) | payer OTHER, SELFPAY ==
--- NOTE | 2024-07-25 08:56 | A.OFFVIS_ITS ---
Vital Signs 07/25/24 09:00 Height 5 ft 7 in Weight 209 lb 7.026 oz BMI 32.8 BP 142/90 H Blood Pressure Location Rt brachial Position Sitting Pulse 68 Pulse Source Pulse Oximeter Pulse Oximetry (%) 98 Oxygen Delivery Method Room Air Intake Visit Reasons: PsA Intake Note: Patient presents for PsA. Allergies nystatin Allergy (Severe, Verified 07/25/24 08:59) Anaphylaxis latex Adverse Reaction (Unknown, Verified 07/25/24 08:59) Rash tetracycline Adverse Reaction (Unknown, Verified 07/25/24 08:59) Rash Medication List - Last Reconciled 07/25/24 by Esteban Tolentino MD albuterol sulfate 90 mcg/actuation inhalation bupropion HCl SR 150 mg PO QAM calcitriol mcg PO empagliflozin (Jardiance) 10 mg PO DAILY fluoxetine 40 mg PO DAILY gabapentin 600 mg PO BID leucovorin calcium 10 mg PO QWEEK losartan 25 mg PO DAILY losartan 100 mg PO DAILY lovastatin 40 mg PO DAILY metformin ER 500 mg PO DAILY methotrexate sodium 15 mg (6 x 2.5 mg) PO QWEEK ondansetron 4 mg PO Q8H PRN spironolacton-hydrochlorothiaz 25-25 mg tabs PO tizanidine 2 mg PO BEDTIME HPI Comments Details: 63-year-old female with psoriatic arthritis returns for follow-up. She states that she had COVID back in May and she was sick at home for about 7 days, she had another flu-like illness over the last 2 weeks that she is recovering from. She has been doing well otherwise. She denies any joint pain or swelling, denies any skin rashes. Compliant with methotrexate. She states that she continues to have intermittent mouth ulcers. Initial history: This is a 63-year-old female who presents for evaluation of multiple joint pain and swelling. Patient states that she was diagnosed with fibromyalgia about 4 years ago. She was started on gabapentin at that time. She stated that back in August of 2023 she developed some redness of her eyes, she went to the eye doctor and was told that she has an infection. Afterwards she started developing multiple joint pain and swelling including her hands, wrists, ankles, knees. She went to the emergency room once and was given st eroids with improvement. Since then she has been having intermittent episodes of joint pain and swelling affecting different joints. She has morning stiffness lasting 20-30 minutes. She takes Tylenol as needed but does not take any NSAIDs due to her history of CKD. She states that she was diagnosed with psoriasis 2-3 years ago based on nail psoriasis. States that she was evaluated by a animal husbandry teacher and she had a nail biopsy. Father had psoriasis, she has a niece with psoriatic arthritis Patient denies any history of DVT/PE. She had 2 pregnancies, 1 live and 1 . [facility] Medical History NICHOLAS (obstructive sleep apnea) Obese Major depression Hyperlipidemia, unspecified IBS (irritable bowel syndrome) HTN (hypertension) Gastric acid decreased Fibromyalgia Endometrial hyperplasia CKD stage 3 due to type 2 diabetes mellitus Cholecystitis Cervical radiculopathy due to degenerative joint disease of spine CTS (carpal tunnel syndrome) Asthma Surgical History History of gastric surgery Previous section History of cholecystectomy Family History Mother Colon cancer Father Psoriasis Other Autoimmune disease Social History Alcohol intake: current Alcohol intake frequency: does not drink Patient Tobacco Use Status: Never used Tobacco Current occupational status: employed 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 Reproductive History Menstrual Total pregnancies: 2 Full term: 1 Ab spontaneous: 1 Review of Systems ENT Details: Mouth ulcers Musc Denies arthralgias, Denies joint swelling and Denies stiffness Physical Exam Vital Signs: Last Vital Signs Pulse 68 07/25/24 09:00 BP 142/90 H 07/25/24 09:00 Pulse Ox 98 07/25/24 09:00 Oxygen Delivery Method Room Air 07/25/24 09:00 BMI result Body Mass Index 32.8 Const General: cooperative, healthy appearing and comfortable Nutritional Appearance: obese Orientation/consciousness: patient oriented x3 Limitations: no limitations HEENT Head: Yes normocephalic and Yes atraumatic Resp Effort & Inspection: normal respiratory effort and able to speak in complete sentences Cardio Rate: regular rate Rhythm: regular rhythm Skin General skin exam: no rashes or lesions noted Neuro General: patient oriented x3 Extrem Other: No wrist swelling, tenderness or pain with full flexion-extension No active synovitis both hands Normal range of motion of elbows and shoulders without pain No knee pain with flexion-extension bilaterally No ankle swelling or tenderness bilaterally Assessment & Plan Assessment & Plan (1) Psoriatic arthritis: Comment: dx 01/2024 MTX 01/2024 effective Code(s): L40.50 - Arthropathic psoriasis, unspecified Category: Medical Plan: This is a 63-year-old female with psoriatic arthritis who returns for follow-up. She is on methotrexate 15 mg p.o. weekly with significant improvement. She continues to get intermittent mouth sores Continue methotrexate 15 mg p.o. weekly. (may not be able to increase the dose further in the future due to CKD) Discontinue folic acid Increase Leucovorin to 10 mg a week Labs before next visit in 4 months (2) skilled nursing methotrexate user: Code(s): Z79.631 - oil heaterman (current) use of antimetabolite agent Category: Medical Plan: Monitor safety labs Patient does not consume alcohol Continue Leucovorin Plan I spent 25 minutes reviewing patient's chart, evaluating patient, ordering diagnostic workup, counseling patient and documenting in the chart Orders: Orders Comprehensive Met. Panel 4 Months L40.50 - Arthropathic psoriasis, unspecified, Z79.631 - skilled nursing (current) use of antimetabolite agent Erythrocyte Sedimentation Rate 4 Months L40.50 - Arthropathic psoriasis, unspecified, Z79.631 - oil heaterman (current) use of antimetabolite agent Complete Blood Count Auto Diff 4 Months L40.50 - Arthropathic psoriasis, unspecified, Z79.631 - oil heaterman (current) use of antimetabolite agent C Reactive Protein 4 Months L40.50 - Arthropathic psoriasis, unspecified, Z79.631 - skilled nursing (current) use of antimetabolite agent Medications: Changed From leucovorin calcium 5 mg PO QWEEK 12 tabs 0RF To leucovorin calcium take 1 tab the day after you take Methotrexate 10 mg PO QWEEK 12 tabs 0RF Refilled methotrexate sodium 15 mg (6 x 2.5 mg) PO QWEEK 96 tabs 0RF Discontinued folic acid Discontinued Reason: Doctor's Order 1 mg PO DAILY 90 tabs 1RF Coding Level of Care Code Est Pt Level 4 (58715) Diagnoses Psoriatic arthritis L40.50 skilled nursing methotrexate user Z79.631
[2024-07-25 09:00] VITALS: BP 142/90; PULSE 68; O2SAT 98; BMI 32.8
== END 2024-07-25 09:27 | disposition home or self-care (01) ==
PROVIDERS: PCP Internal Medicine; Visit Provider Student in an Organized Health Care Education/Training Program
DX: L40.50 Arthropathic psoriasis, unspecified (principal); Z79.631 Long term (current) use of antimetabolite agent
CPT/HCPCS: 99214

== ENCOUNTER 2024-11-23 08:31 | Outpatient (REF) | payer OTHER, SELFPAY ==
--- OUTSIDE RECORDS SUMMARY | 2024-11-23 08:41 | XMS_ITS | Encounter Summary ---
Author Organization [facility] Address [address] [place] [address] Care Team Providers Care Health Information Managers Name Role Phone Bridgett Schulz MD Primary Care Prov ider [facility]ly [facility], Pcp Primary Care Provider Unavailabl e Encounter Details Date Type Department Care Team Description 05/31/2022 Refill Nephrology - [place] [address] [place] [address] Gumaro Kc MD [address] [place] [id number] Social History Tobacco Use Types Packs/Day Years Used Date Smoking Tobacco: Former Cigarettes Q uit: 07/11/2006 Smokeless Tobacco: Never Comments:Quit 2007,occ cig o ne to two once or twice a yr Alcohol Use Standard Drinks/Week Comments No 0 (1 standard drink = 0.6 oz pur e alcohol) Sex Assigned at Date Recorded Female 01/12/2021 10:25 AM EDT Job Start Date Occupation Industry Not on file Not on file Not on file COVID-19 Exposure Response Date Recorded In the last 10 days, have yo u been in contact with someone who was confirmed or suspected to have Coronavirus/COVID-19? No / Unsure 05/22/2022 1:01 PM EDT documented as of this encounter Miscellaneous Notes * Telephone Encounter - Viviane Almonte Gian - 06/01/2022 9:55 AM EST Patient is asking for the refill on the medication. She is aware this was requested yesterday documented in this encounter Plan of Treatment Not on file documented as of this encounter Visit Diagnoses Not on filedocumented in this encounter Care Teams Health Information Managers Relationship Specialty Start Date End Date Bridgett Schulz MD [address] [place] [phone] PCP - General Internal Medicine 01/21/22 01/13/23 [facility], Pcp [address] [place] [id number] PCP - General Internal Medicine 01/14/23 documented as of this encounter
--- OUTSIDE RECORDS SUMMARY | 2024-11-23 08:41 | XMS_ITS | Encounter Summary ---
Author Organization [facility] Address [address] [place] [address] Care Team Providers Care Protective Services Social Worker Name Role Phone Community, Pcp Primary Care Provider Unavailabl e Encounter Details Date Type Department Care Team Description 03/26/2024 Refill Nephrology - [place] [address] [place] [address] Darinel Kern MD [address] [place] [id number] Social History Tobacco Use Types Packs/Day Years [...] file Not on file Not on file documented as of this encounter Plan of Treatment Not on file documented as of this encounter Visit Diagnoses Not on filedocumented in this encounter Care Teams Protective Services Social Worker Relationship Specialty Start Date End Date Community, Pcp PCP - General Internal Medicine 01/14/23 documented as of this encounter
--- OUTSIDE RECORDS SUMMARY | 2024-11-23 08:41 | XMS_ITS | Encounter Summary ---
Author Organization [facility] Address [address] [place] [address] Care Team Providers Care Car Parker Name Role Phone Bridgett Schulz MD Primary Care Prov ider [facility], Pcp Primary Care Provider Unavailabl e Encounter Details Date Type Department Care Team Description 12/17/2022 Refill Nephrology [facility] [address] [place] [address] Gumaro Kc MD [address] [place] [phone] Social History Tobacco Use Types Packs/Day Years [...] suspected to have Coronavirus/COVID-19? No / Unsure 11/17/2022 4:08 PM EDT documented as of this encounter Plan of Treatment Not on file documented as of this encounter Visit Diagnoses Not on filedocumented in this encounter Care Teams Car Parker Relationship Specialty Start Date End Date Bridgett Schulz MD [address] [place] [id number] PCP - General Internal Medicine 01/21/22 01/13/23 [facility], Pcp [address] [place] [address] PCP - General Internal Medicine 01/14/23 documented as of this encounter
--- OUTSIDE RECORDS SUMMARY | 2024-11-23 08:41 | XMS_ITS | Encounter Summary ---
Author Organization [facility] Address [address] [place] [address] Care Team Providers Care Microstrategy Bi Developer Name Role Phone Community, Pcp Primary Care Provider Unavailabl e Encounter Details Date Type Department Care Team Description 03/18/2024 Refill Nephrology - [place] [address] [place] [address] Darinel Kern MD [address] [place] [phone] Social History Tobacco Use Types Packs/Day Years [...] on filedocumented in this encounter Care Teams Microstrategy Bi Developer Relationship Specialty Start Date End Date Community, Pcp PCP - General Internal Medicine 01/14/23 documented as of this encounter
--- OUTSIDE RECORDS SUMMARY | 2024-11-23 08:41 | XMS_ITS | Encounter Summary ---
Author Organization [facility] Address [address] [place] [address] Care Team Providers Care Print Machine Operator Name Role Phone Susan La MD Primary Care Provider Bridgett Zavala MD Primary Care Prov ider [facility], Pcp Primary Care Provider [facility] Encounter Details Date Type Department Care Team Description 10/14/2011 Eye Access Consultant Report Medical Records [address] [place] [address] Mega Gilbert MD Social History Tobacco Use Types Packs/Day Years Used Date Smoking Tobacco: Former Cigarettes Q uit: 07/11/2006 Smokeless Tobacco: Former Comments:occ cig one to two once or twice a yr [...] on filedocumented in this encounter Care Teams Print Machine Operator Relationship Specialty Start Date End Date Susan La MD PCP - General 09/08/00 01/20/22 Bridgett Schulz MD [address] [place] [address] PCP - General Internal Medicine 01/21/22 01/13/23 [facility], [address] [address] PCP - General Internal Medicine 01/14/23 documented as of this encounter
--- OUTSIDE RECORDS SUMMARY | 2024-11-23 08:41 | XMS_ITS | Clinical Summary ---
Author Organization [facility] Address [address] [place] [address] Care Team Providers Care Sleeve Setter Name Role Phone Community, Pcp Primary Care Provider Unavailabl e Allergies Active Allergy Reactions Severity Noted Date Comments Nystatin Itching/Pruritus 04/10/2008 Tape Rash/Dermatitis Low 11/02/2007 Tetracycline Hcl Rash/Dermatitis 04/11/2005 Medications Medication Sig Dispensed Refills Start Date End Date Status ONE TOUCH ULTRASOFT LANCETS Misc Apply 1 Each topically 4 times daily. 150 Each 2 03/06/2015 Active Cholecalciferol (VITAMIN D) 2000 UNITS Cap Take 1 Cap by mouth daily. 30 Cap 6 11/09/2018 Active Blood Glucose Monitoring Suppl (CONTOUR NEXT MONITOR) w/Device Kit Inject 1 Each into the skin daily. Use to check blood sugar daily 1 Kit 0 09/19/2019 Active CONTOUR NEXT TEST strip Use to check blood sugar daily 100 Each 1 09/19/2019 Active cetirizine (ZYRTEC ALLERGY) 10 MG tablet Take 1 Tab by mouth daily for 360 days. 30 Tab 11 03/28/2020 Active omeprazole (PRILOSEC) 20 MG capsule Take 1 Cap by mouth daily for 150 days. 30 Cap 4 05/08/2020 Active ALBUTEROL SULFATE 108 (90 Base) MCG/ACT Aero Soln Inhale 2 Puffs into the lungs 4 times daily as needed for Cough or Wheezing. 1 Inhaler 0 09/30/2020 Active tizanidine (ZANAFLEX) 4 MG tablet Take 0.5-1 Tablets by mouth at bedtime as needed for Muscle spasms (will cause sedation). 90 Tablet 1 05/10/2022 Active gabapentin (NEURONTIN) 300 MG capsule Take 1 Capsule by mouth 3 times daily. 270 Capsule 0 06/02/2022 Active lovastatin (MEVACOR) 40 MG tablet TAKE 1 TABLET AT BEDTIME 90 Tablet 0 08/03/2022 Active buPROPion (WELLBUTRIN SR) 150 MG 12 hr tablet TAKE 1 TABLET DAILY 90 Tablet 0 08/03/2022 Active fluoxetine (PROZAC) 40 MG capsule TAKE 1 CAPSULE EVERY MORNING 90 Capsule 0 08/03/2022 Active losartan (COZAAR) 25 MG tablet Take 1 Tablet by mouth daily for 360 days. 90 Tablet 3 11/16/2023 Active spironolactone-hyd rochlorothiazide (ALDACTAZIDE) 25-25 MG per tablet Take 0.5 Tablets by mouth daily. 45 Tablet 3 11/16/2023 Active calcitRIOL (ROCALTROL) 0.25 MCG capsule Take 1 Capsule by mouth every other day. 45 Capsule 3 03/27/2024 03/27/2025 Active calcitRIOL (ROCALTROL) 0.25 MCG capsule Take 1 Capsule by mouth every other day. 45 Capsule 3 03/27/2024 03/27/2025 Active Active Problems Patient Care Coordination No te Formatting of this note is d ifferent from the original. Checking Your Blood Sugars Please check your blood sugars every day prn Please check your sugars at the following times of day: before breakfast Your Blood Sugar Goals Pre Meal: 90-130 2 hours after meals: 110-160 Bedtime: 110-150 Use the Results ?? Bring your glucometer to every appointment ?? Write your fingerstick blood sugars down on a log sheet or record book. Bring them to your appointment ?? Look for patterns in the numbers. The results help you and your provider make decisions about your diabetes treatment plan. Your Results and your Goals Your Result / Date of Completion Your Goal / How Often to Assess Component Value Date HGBA1C 6.3 01/05/2016 Less than 7%--- 2-4 times per year BP Readings from Last 1 Encounters: 01/07/16 112/64 Less than 130/80--- once per year Component Value Date LDL 87 08/30/2015 LDL less than 100--- once per year Component Value Date MALBUR 3.8 01/05/2016 Less than 30--- once per year Wt Readings from Last 1 Encounters: 01/07/16 201 lb 12.8 oz (91.536 kg) Your goal weight by next visit: 200 --- reassess 2-4 times a year Health Maintenance Due Topic Date Due ? ? Baseline Health Exam 40-64 10/18/2003 ? ? Diabetes: Annual Care Plan 05/10/2015 ? ? Pap Smear 11/01/2015 ? ? Diabetes: Annual Eye Exam 11/29/2015 Your Action Plan Check blood glucose as directed and write down all results. Check feet for sores every day Increase physical activity Contact me if you experience any barriers to care such as inability to purchase your medication, difficulty getting to your appointments or difficulty understanding your care plan When to Call your Healthcare Provider If your blood sugar falls below 70 and you do not know why or you become unconscious If you are sick and unable to take liquids because or nausea or vomiting If you have a fever over 101 If your blood sugar is 300 or higher on greater than 3 separate occasions during the same week If you are just unsure what to do Educational Resources [place] [employer] (www.diabetes.org) Centers for Disease Control and Prevention (www.cdc.gov/diabetes) This care plan was created in collaboration with Dianna Ellington on 01/07/2016 Problem Noted Date Clinical diagnosis of COVID-19 Overview: Patient reported. Personal history of colonic polyps 06/08 Overview: Adenomatous polyp of the descending colon found at colonoscopy on 01/27/2021. Repeat colonoscopy in 5 years. Psoriasis of nail 11/04/2020 Fibromyalgia 11/04/2020 Chronic cholecystitis 03/06/2015 Gall stone 11/15/2014 Endometrial hyperplasia 06/27/2014 Endometrial polyp 06/27/2014 Microscopic hematuria 05/27/2014 Asthma 04/10/2014 Microalbuminuria 05/21/2013 Overview: Microalbumin was 120 on 12/20/2012. 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 Nuclear sclerosis 05/21/2013 Overview: NS bilat--taken from note of Dr. Yoon on 11/28/2012. Type 2 diabetes mellitus with cataract 1 07/21/2012 Glaucoma 06/26/2011 Cervical spondylosis with radiculopathy 12/08/2010 Cervical stenosis of spinal canal 2010 Degenerative disc disease, cervical 11/16 Herniated cervical disc 12/08/2010 Carpal tunnel syndrome, bilateral 2010 Diabetes mellitus with renal complicatio ns 08/26/2010 Hyperlipidemia LDL goal < 100 02/25/2010 Overview: IMO update Major depressive disorder, recurrent epi sode, moderate 07/16/2009 Unspecified sleep apnea 09/16/2006 Overview: CPAP at night IMO update Heartburn 07/25/2006 Irritable bowel syndrome 04/11/2005 Myalgia and myositis, unspecified 2004 Overview: IMO update Class 1 obesity due to exces s calories with serious comorbidity and body mass index (BMI) of 34.0 to 34.9 in adult 04/11/2005 Essential hypertension, benign 5 Immunizations Name Administration Dates Next Due COVID-19 (Moderna) PT Reported 05/21/2021,2020,09/18/2020 Covid-19 Bivalent (Moderna) 07/29/2022 Influenza (> 6 Months) 05/10/2016,2013,05/22/2013,06/06,03/24/2011,08/26/2010,04/18/2009 Influenza Flu (PT Reported) 04/15/2021 Influenza Vaccine-preservati ve Free-quadrivalent 4 Years 05/10/2022,06/07/2020,05/26/2018 Influenza Vaccine-quadrivale nt 4 Years Plus 05/24/2017 PPD-RBMG 11/03/2004 Pneumoccoccal(Adult) Polysac charide PPSV23 05/10/2014 Tdap 11/24/2011 Family History Medical History Relation Name Comments Cancer, Other Aunt maternal, ovar akilah cancer CAD Father psoriasis CA Colon Mother diagnosed 2021 Cataract Mother Arthritis Diabetes Mother Arthritis No Known Problems Sister Blindness Negative Hx CA Breast Negative Hx Glaucoma Negative Hx Macular Degeneration Negative Hx Strabismus Negative Hx Relation Name Status Comments Aunt Father Alive Mother Alive Sister Alive Social History Tobacco Use Types Packs/Day Years Used Date Smoking Tobacco: Former Cigarettes Q uit: 07/11/2006 Smokeless Tobacco: Never Tobacco Cessation:Counseling Given: No Comments:Quit 2006,occ cig one to two once or twice a yr Alcohol Use Standard Drinks/Week Comments No 0 (1 standard drink = 0.6 oz pur e alcohol) Sex Assigned at Date Recorded Female 01/12/2021 10:25 AM EDT Job Start Date Occupation Industry Not on file Not on file Not on file Last Filed Vital Signs Vital Sign Reading Time Taken Comments Blood Pressure 134/78 11/16/2023 4:27 PM EDT Pulse 72 11/16/2023 4:27 PM EDT Temperature 36.7 ??C (98.1 ??F) 05/10/2022 10:56 AM E DT Respiratory Rate 14 05/10/2022 10:56 AM EDT Oxygen Saturation 98% 11/17/2022 4:12 PM EDT Inhaled Oxygen Concentration - - Weight 99.8 kg (220 lb) 11/16/2023 4:27 PM EDT Height 170.2 cm (5' 7 ) 05/10/2022 10:56 AM EDT Body Mass Index 34.46 05/10/2022 10:56 AM EDT Plan of Treatment Health Maintenance Due Date Last Done Comments BASELINE HEALTH EXAM 40-64 10/18/2003 10/17/2001 SHINGLES VACCINE (2 of 2) 07/16/2021 05/21/2021 DTAP/TDAP/TD (2 - Td or Tdap) 11/23/2021 11/24/2011 DIABETES: BLOOD SUGAR CONTRO L TEST (HGBA1C) 02/16/2023 11/16/2022, 12/11/2021, 10/05/2020, Additional history exists DIABETES: ANNUAL EYE EXAM 04/15/20232021, 01/17/2020 (External Completion), 08/15/2017, Additional history exists DIABETES: ANNUAL FOOT EXAM 05/10/202305/10, 09/30/2020, 05/21/2019, Additional history exists DIABETES/HEART DISEASE: ANASTACIA AL CHOLESTEROL (LDL) 11/17/2023 11/16/2022, 12/11/2021, 09/15/2019, Additional history exists Covid-19 Vaccine (2022-08 4 season) 2024 07/29/2022, 05/21/2021, 10/16/2020, Additional history exists MAMMOGRAM 05/28/2024 05/28/2023, 11/2021, 05/16/2021, Additional history exists BMI CHECK/ADVISE 07/18/2024 11/16/2023, 09/2022, 05/10/2022, Additional history exists DIABETES: ANNUAL URINE PROTE IN TEST (MICROALBUMIN) 08/17/2024 08/17/2023, 01/21/2022, 04/01/2021, Additional history exists INFLUENZA (Season Ended) 2025 022, 04/15/2021, 04/15/2021, Additional history exists CERVICAL CANCER SCREENING 04/02/20252021, 10/25/2016, 10/31/2012, Additional history exists COLON CANCER SCREENING 01/27/2026 , 11/02/2007, 12/20/2001 PNEUMOCOCCAL VACCINE FOR HIG H RISK PATIENTS (#2) 2026 05/10/2014 HEPATITIS C SCREENING Completed 03/28/2002 Care Teams Sleeve Setter Relationship Specialty Start Date End Date [facility], Pcp PCP - General Internal Medicine 01/14/23
--- OUTSIDE RECORDS SUMMARY | 2024-11-23 08:41 | XMS_ITS | Encounter Summary ---
Author Organization [facility] Address [address] [place] [address] Care Team Providers Care Ship Self Defense System Mk1 Operator Name Role Phone Susan La MD Primary Care Provider Bridgett Zavala MD Primary Care Prov ider Count Includes [facility], Pcp Primary Care Provider [facility] Encounter Details Date Type Department Care Team Description 01/28/2012 Pt. Non Urgent Medic al Question Adult Medicine [address] [address] Susan La MD Social History Tobacco Use Types Packs/Day [...] on file documented as of this encounter Progress Notes * Margo GarciaP.NDarlyn - 01/28/2012 3:12 PM EDTFrom: YUMI ELLINGTON To: Susan La MD Sent: TueJan 28, 2012 11:34 AM Subject: Lisinopril I have sent twice a request for a refill of Lisinopril 40mg (90 caps) and (I have not taken the medication this week because) no one has send the refill [facility] Could you help me withthis? I am guessing Dr. Carmona is on vacation. Thank you. documented in this encounter Plan of Treatment Not on file documented as of this encounter Visit Diagnoses Not on filedocumented in this encounter Care Teams Ship Self Defense System Mk1 Operator Relationship Specialty Start Date End Date Susan La MD PCP - General 09/08/00 01/20/22 Bridgett Schulz MD [address] [place] [address] PCP - General Internal Medicine 01/21/22 01/13/[address] [address] PCP - General Internal Medicine 01/14/23 documented as of this encounter
--- OUTSIDE RECORDS SUMMARY | 2024-11-23 08:41 | XMS_ITS | Encounter Summary ---
Author Organization [facility] Address [address] [place] [address] Care Team Providers Care Circle Beveler Name Role Phone Susan La MD Primary Care Provider Bridgett Zavala MD Primary Care Prov ider [facility], Pcp Primary Care Provider Unavailabl e Reason for Referral * EXTERNAL (Routine) - Authorized/Booked Specialty Diagnoses / Procedures Referred By Jessica t Referred To Contact Neurology Procedures REFERRAL TO NEUROLOGY Susan aL MD [address] [place] [id number] Jian Bhagat MD Referral ID Status Reason Start Date Expiration Date V isits Requested Visits Authorized SEE NOTE Authorized/B ooked 04/20/2017 07/23/2017 1 1 Reason for Visit * Reason Onset Date Comments Referral Request MyChart 04/20/2017 Encounter Details Date Type Department Care Team Description 04/20/2017 Pt. Non Urgent Medic al Question Adult Medicine [address] [address] Susan La MD Social History Tobacco Use [...] of this encounter Progress Notes * Margo Collado L.P.N. - 04/20/2017 1:48 PM EDTFrom: Dianna Ellington To: Susan La MD Sent: 04/20/2017 1:31 PM EDT Subject: Olfactory hallucination Problem continues would like to see a neurologist. Thank you. documented in this encounter Plan of Treatment Not on file documented as of this encounter Visit Diagnoses Not on filedocumented in this encounter Care Teams Circle Beveler Relationship Specialty Start Date End Date Susan La MD PCP - General 09/08/00 01/20/22 Bridgett Schulz MD [address] [place] [address] PCP - General Internal Medicine 01/21/22 01/13/23 [facility], [address] [address] PCP - General Internal Medicine 01/14/23 documented as of this encounter
--- OUTSIDE RECORDS SUMMARY | 2024-11-23 08:41 | XMS_ITS | Encounter Summary ---
Author Organization [facility] Address [address] [place] [address] Care Team Providers Care Script Reader Name Role Phone Susan La MD Primary Care Provider Bridgett Zavala MD Primary Care Prov ider [facility], Pcp Primary Care Provider [facility] Encounter Details Date Type Department Care Team Description 02/08/2012 Stripper Cutter Machine Report Medical Records [address] [place], [place] [phone] Masood Santiago MD Social History Tobacco Use Types Packs/Day [...] on filedocumented in this encounter Care Teams Script Reader Relationship Specialty Start Date End Date Susan La MD PCP - General 09/08/00 01/20/22 Bridgett Schulz MD [address] [place] [phone] PCP - General Internal Medicine 01/21/22 01/13/23 [facility], [address] [address] PCP - General Internal Medicine 01/14/23 documented as of this encounter
--- OUTSIDE RECORDS SUMMARY | 2024-11-23 08:41 | XMS_ITS | Encounter Summary ---
Author Organization [facility] Address [address] [place] [address] Care Team Providers Care Tier Lift Operator Name Role Phone Susan La MD Primary Care Provider Bridgett Zavala MD Primary Care Prov ider [facility], Pcp Primary Care Provider Unavailabl e Reason for Visit * Reason Onset Date Comments refill request 06/28/2017 Encounter Details Date Type Department Care Team Description 06/28/2017 Refill Nephrology - [address] [address] Gumaro Kc MD [address] [place] [address] refill request Social History Tobacco Use Types Packs/Day Years [...] on file documented as of this encounter Miscellaneous Notes * Telephone Encounter - Terrie Powers - 06/28/2017 8:39 AM EST Patient would like script to be: E-PRESCRIBED/FAXED TO PHARMACY (THE MEDICATION REQUESTED IS ON THE MED LIST ABOVE) All of the medications requested were on the CURRENT MEDS list Did you check the Pharmacy information above?: YES Patient wants: 30 -day supply Is this a mail order prescription request ? NO Patients current insurance carrier is: Payor: [facility] / Plan: PPO $20 [place] [id number] / Product Type: PPO [id number] documented in this encounter Plan of Treatment Not on file documented as of this encounter Visit Diagnoses Not on filedocumented in this encounter Care Teams Tier Lift Operator Relationship Specialty Start Date End Date Susan La MD PCP - General 09/08/00 01/20/22 Bridgett Schulz MD [address] [place] [id number] PCP - General Internal Medicine 01/21/22 01/13/[address] [address] PCP - General Internal Medicine 01/14/23 documented as of this encounter
--- OUTSIDE RECORDS SUMMARY | 2024-11-23 08:41 | XMS_ITS | Encounter Summary ---
Author Organization [facility] Address [address] [place] [address] Care Team Providers Care Inspector Watch Assembly Name Role Phone Susan La MD Primary Care Provider Bridgett Zavala MD Primary Care Prov ider [facility], Pcp Primary Care Provider [facility] e Encounter Details Date Type Department Care Team Description 01/25/2012 [place] [address] Crispin Carmona MD Social History Tobacco Use Types Packs/Day [...] on filedocumented in this encounter Care Teams Inspector Watch Assembly Relationship Specialty Start Date End Date Susan La MD PCP - General 09/08/00 01/20/22 Bridgett Schulz MD [address] [place], [place] [phone] PCP - General Internal Medicine 01/21/22 01/13/23 [facility], Pcp [address] [place], [place] [phone] PCP - General Internal Medicine 01/14/23 documented as of this encounter
--- OUTSIDE RECORDS SUMMARY | 2024-11-23 08:41 | XMS_ITS | Encounter Summary ---
Author Organization [facility] Address [address] [place] [address] Care Team Providers Care Expeditionary Fighting Vehicle Crewman Name Role Phone Susan La MD Primary Care Provider Bridgett Zavala MD Primary Care Prov ider [facility], Pcp Primary Care Provider [facility] Encounter Details Date Type Department Care Team Description 06/22/2012 Telephone Adult Medicine [address] [address] Susan La MD Social History Tobacco Use [...] on filedocumented in this encounter Care Teams Expeditionary Fighting Vehicle Crewman Relationship Specialty Start Date End Date Susan La MD PCP - General 09/08/00 01/20/22 Bridgett Schulz MD [address] [place] [phone] PCP - General Internal Medicine 01/21/22 01/13/23 [facility], Pcp [address] [place], [place] [phone] PCP - General Internal Medicine 01/14/23 documented as of this encounter
--- OUTSIDE RECORDS SUMMARY | 2024-11-23 08:41 | XMS_ITS | Encounter Summary ---
Author Organization [facility] Address [address] [place] [address] Care Team Providers Care Smelter Charger Name Role Phone Susan La MD Primary Care Provider Bridgett Zavala MD Primary Care Prov ider [facility], Pcp Primary Care Provider [facility] Encounter Details Date Type Department Care Team Description 05/18/2012 Walk In Clinic Visit Medical Records [address] [place] [address] Social History Tobacco Use Types Packs/Day Years [...] on filedocumented in this encounter Care Teams Smelter Charger Relationship Specialty Start Date End Date Susan La MD PCP - General 09/08/00 01/20/22 Bridgett Schulz MD [address] [place], [place] [phone] PCP - General Internal Medicine 01/21/22 01/13/23 [facility], [place] [address] PCP - General Internal Medicine 01/14/23 documented as of this encounter
--- OUTSIDE RECORDS SUMMARY | 2024-11-23 08:41 | XMS_ITS | Encounter Summary ---
Author Organization [facility] Address [address] [place] [address] Care Team Providers Care Cell Preparer Name Role Phone Susan La MD Primary Care Provider Bridgett Zavala MD Primary Care Prov ider [facility], Pcp Primary Care Provider [facility] Encounter Details Date Type Department Care Team Description 01/26/2012 Release of Information Medical Records [address] [place] [id number] Abstract, Provider Social History Tobacco Use Types Packs/Day Years [...] on filedocumented in this encounter Care Teams Cell Preparer Relationship Specialty Start Date End Date Susan La MD PCP - General 09/08/00 01/20/22 Bridgett Schulz MD [address] [place], [place] [phone] PCP - General Internal Medicine 01/21/22 01/13/23 [facility], [place] [address] PCP - General Internal Medicine 01/14/23 documented as of this encounter
--- OUTSIDE RECORDS SUMMARY | 2024-11-23 08:42 | XMS_ITS | Clinical Summary ---
Author Organization [address] Address [address] [place] [phone] Phone Care Team Providers Care [employer] Maintenance Worker Name Role Phone Bridgett Boo MD Primary Care Prov ider Allergies Active Allergy Reactions Criticality Noted Date Comments Adhesive Tape-Silicones Low 11/02/2007 Other Reaction(s): Rash/Dermatitis Nystatin Itching 04/10/2008 Other Reaction(s): rash/throat sensation Tetracycline 04/11/2005 Other Reaction(s): rash, Rash/Dermatitis Medications calcitrioL (ROCALTROL) 0.25 mcg capsule Take 1 capsule (0.25 mcg total) by mouth every other day. Active losartan (COZAAR) 25 mg tablet Take 1 Tablet by mouth daily for 360 days. 4 Active spironolactone- hydroCHLOROthia zide (ALDACTAZIDE) 25-25 mg per tablet Take 0.5 Tablets by mouth daily. 4 Active lovastatin (MEVACOR) 40 mg tablet Take 1 tablet (40 mg total) by mouth 1 (one) time each day. Active buPROPion SR (WELLBUTRIN SR) 150 mg 12 hr tablet Take 1 tablet (150 mg total) by mouth 1 (one) time each day in the morning. Active FLUoxetine (PROzac) 40 mg capsule 1 capsule = 40 mg, By Mouth, Daily, # 30 capsule, 0 Refills, Maintenance, 08/20/22 8:24:00 AM EST, Capsule, Partial fill upon patient request if the prescription is for a schedule II opioid drug. 3 Active gabapentin (NEURONTIN) 300 mg capsule 300 mg, 1, capsule, By Mouth, 4 times a day, # 360 capsule, Refills 1, Tot. Refills 1, Maintenance, 08/03/23 8:52:00 AM EST, Route to Pharmacy Electronically, [facility], Partial fill upon patient request if the prescription is for a schedule II opioid drug., 170.18, cm, 08/03/23 8:20:00 EST, Height 2 Active tiZANidine (ZANAFLEX) 4 mg tablet TAKE 1 TABLET BY MOUTH EVERY 8 HOURS NEEDED FOR SPASM Active albuterol HFA (PROAIR HFA ; PROVENTIL HFA ; VENTOLIN HFA) 90 mcg/actuation inhaler Inhale 2 Puffs into the lungs 4 times daily as needed for Cough or Wheezing. 1 Active blood-glucose meter mis Active cholecalciferol (VITAMIN D-3) 50 mcg (2,000 unit) capsule Take 1 Cap by mouth daily. 9 Active lancets lancets Apply 1 Each topically 4 times daily. 5 Active Active Problems Problem Noted Date Diagnosed Date Class 1 obesity due to exces s calories with serious comorbidity and body mass index (BMI) of 34.0 to 34.9 in adult 07/21/2024 Myositis 07/21/2024 Clinical diagnosis of COVID-19 08/06/2021 Overview (07/21/2024): Patient reported. 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 Microalbuminuria 05/21/2013 Overview (07/21/2024): Microalbumin was 120 on 12/20/2012. Nuclear sclerosis 05/21/2013 Overview (07/21/2024): NS bilat--taken from note of Dr. Yoon on 11/28/2012. Type 2 diabetes mellitus wit h cataract ([facility] V24, [facility] V28) 05/21/2013 Glaucoma 06/26/2011 Carpal tunnel syndrome, bilateral 12/08/2010 Cervical spondylosis with radiculopathy 12/09/19 11 Cervical stenosis of spinal canal 12/08/2010 Degenerative disc disease, cervical 12/08/2010 Herniated cervical disc 12/08/2010 Diabetes mellitus with renal complications ([facility] V24, [facility] V28) 08/26/2010 Hyperlipidemia with target LDL less than 100 05/2010 Overview (07/21/2024): [facility] update Major depressive disorder, r ecurrent episode, moderate ([facility] V24, [facility] V28) 07/16/2009 Sleep apnea 09/16/2006 Overview (07/21/2024): CPAP at night [facility] update Heartburn 07/25/2006 Irritable bowel syndrome 04/11/2005 Myalgia 04/11/2005 Overview (07/21/2024): [facility] update Essential hypertension, benign 02/19/2005 Immunizations Name Administration Dates Next Due Influenza Quadravalent, MDCK , 0.5ml, preservative free (Flucelvax) 6mo and older 05/10/2022,04/15/2021,06/07/2020,05/26 Influenza Quadravalent, MDCK , 0.5ml, with preservative (Flucelvax) 6mo and older 05/24/2017 Influenza trivalent, MDCK, 0 .5mL, preservative free (Flucelvax) 6mo and older 04/05/2024 Influenza trivalent, with pr eservative (Fluzone; Afluria) 6mo and older 04/27/2023,05/10/2016,05/10/2014,05/22,06/06/2012,03/24/2011,08/26/2010 ,04/18/2009 Influenza, Unspecified 04/15/2021 PPD Test 11/03/2004 Pneumococcal polysaccharide 23 valent (Pneumovax 23) 2yo and older 05/10/2014 Td Tetanus diptheria (Tdvax) 7yo and older 03/29/2024 Tdap Tetanus diptheria acell ular pertussis (Boostrix; Adacel) 7yo and older 11/24/2011 Zoster recombinant (Shingrix ) 19yo and older 05/21/2021 Surgical History Surgery Date Site/Laterality Comments COLONOSCOPY 12/20/2001 PROCEDURE: NM COLONOSCOPY STOMA DX INCLUDING COLLJ SPEC SPX; COMMENT: negative to 80 cm CERVICAL BIOPSY W/ LOOP ELEC TRODE EXCISION PROCEDURE: NM CONIZATION CERVIX W/WO D&C RPR ELTRD EXC OTHER SURGICAL HISTORY PROCEDURE: LAPAROSCOPY PROCEDURE NEC; COMMENT: pt. reports endometriosis ([place]) SECTION PROCEDURE: HISTORICAL DELIVERY; COMMENT: Breech ESOPHAGOGASTRODUODENOSCOPY 07/12/2007 PROCEDURE: NM EGD TRANSORAL BIOPSY SINGLE/MULTIPLE; COMMENT: Erosive gastritis-bx:Normal, Duodenitis, SB bx:Normal COLONOSCOPY 11/02/2007 PROCEDURE: NM COLONOSCOPY STOMA DX INCLUDING COLLJ SPEC SPX; COMMENT: Up cecum, normal. Tuortuosity limited the examination. LAPAROSCOPIC GASTRIC BANDING 06/2013 PROCEDURE: LAP ADJUSTABLE GASTRIC BAND OTHER SURGICAL HISTORY 08/2014 PROCEDURE: HYSTEROSCOPY, DIAGNOSTIC; COMMENT: polypectomy CHOLECYSTECTOMY 2014 PROCEDURE: LAPAROSCOPY, CHOLECYSTECTOMY; COMMENT: w/ laproscopic removal of adjustable gastric band ( gastric component) COLONOSCOPY 01/27/2021 PROCEDURE: HISTORICAL COLONOSCOPY; COMMENT: Dr. Colbert -diminutive adenomatous polyp of the descending colon; internal hemorrhoids. Repeat 5 years. Medical History Medical History Date Comments Irritable bowel syndrome 12/17 DX:Irri table bowel syndrome; COMMENT: colonoscopy neg to 80 cm 12/20/01 Myalgia and myositis, unspecified 04/19 DX:Myalgia and myositis, unspecified Obesity, unspecified DX:Obesity, unspecified Depressive disorder, not els ewhere classified DX:Depressive disorder, not elsewhere classified Other and unspecified hyperlipidemia 03/19 DX:Other and unspecified hyperlipidemia Unspecified sleep apnea 09/16/2006 DX:Unspe cified sleep apnea; COMMENT: CPAP at night Anxiety state, unspecified DX:An xiety state, unspecified Essential hypertension, benign 02/19/05 D X:Essential hypertension, benign Historical Medical DX 09/13/08 DX:Diabete s Glaucoma 06/26/2011 DX:Glaucoma CKD (chronic kidney disease) stage 3, GFR 30-59 ml/min ([facility] V24, [facility] V28) 05/21/2013 DX:CKD (chronic kidney disea se) stage 3, GFR 30-59 ml/min ([facility]) Diabetes mellitus with renal complications ([facility] V24, [facility] V28) 08/26/2010 DX:Diabetes mellitus with re nal complications ([facility]) Degenerative disc disease, cervical 12/08/2010 DX:Degenerative disc disease, cervical Asthma 04/10/2014 DX:Asthma Asthma 04/10/2014 DX:Asthma Personal history of colonic polyps 06/08/2021 DX:Personal history of colonic polyps; COMMENT: Adenomatous polyp of the descending colon found at colonoscopy on 01/27/2021. Repeat colonoscopy in 5 years. Type 2 diabetes mellitus wit h cataract ([facility] V24, [facility] V28) 05/21/2013 DX:Type 2 diabetes mellitus with cataract ([facility]) Family History Medical History Relation Name Comments Other cancer Aunt maternal, ovari an cancer Coronary artery disease Father psor iasis Cataracts Mother Arthritis Colon cancer Mother diagnosed 2021 Diabetes Mother Arthritis No Known Problems Sister Blindness Neg Hx Breast cancer Neg Hx Glaucoma Neg Hx Macular degeneration Neg Hx Strabismus Neg Hx Relation Name Status Comments Aunt Father Alive Mother Alive Sister Alive Social History Tobacco Use Types Packs/Day Years Used Date Smoking Tobacco: Former Cigarettes Q uit: 07/11/2006 Smokeless Tobacco: Never Alcohol Use Standard Drinks/Week Comments No 0 (1 standard drink = 0.6 oz pur e alcohol) Comments Unknown Sex and Gender Information Value Date Recorded Sex Assigned at Not on file Legal Sex Female 6:35 AM EST Gender Identity Not on file Sexual Orientation Not on file Obstetrics History Para Term AB IAB SAB Ectopic Multiple Livin g Live Births 2 2 2 2 Date Outcome GA Total Labor Labor//3rd Weight Sex Type Anes PTL Lesley A1 A5 Name Clin Term Term Last Filed Vital Signs Vital Sign Reading Time Taken Comments Blood Pressure 134/78 11/16/2023 4:27 PM EDT Pulse 72 11/16/2023 4:27 PM EDT Temperature - - Respiratory Rate - - Oxygen Saturation - - Inhaled Oxygen Concentration - - Weight 99.8 kg (220 lb) 11/16/2023 4:27 PM EDT Height 170.2 cm (5' 7 ) 05/10/2022 10:56 AM EDT Body Mass Index 34.46 05/10/2022 10:56 AM EDT Plan of Treatment Health Maintenance Due Date Last Done Comments Diabetes: Annual Foot Exam 09/18/1971 Diabetes: Annual Retina Eye Exam 09/18/1971 Pneumococcal Vaccine: 50+ Years (2 of 2 - PCV) 05/10/2015 05/10/2014 Pneumococcal Vaccine: Pediatrics (0 to 5 Years) and At-Risk Patients (6 to 64 Years) (2 of 2 - PCV) 05/10/2015 05/10/2014 Zoster Vaccines (2 of 2) 07/16/2021 05/21/2021 RSV Immunization Adult Patients (1 - Risk 60-74 years 1-dose series) 2021 Depression Screening 06/26/2022 HIV Screening 06/26/2022 Social Influencers of Health Screening 06/26/2022 Diabetes: Blood Sugar Control Test (HGBA1C) 05/19/2023 11/16/2022 Diabetes: Annual GFR (Glomerular Filtration Rate) 11/17/2023 11/16/2022 Hypertension/CHF/CAD Annual BMP Blood Test 11/17/2023 11/16/2022 COVID-19 Vaccine () 03/18/2024 07/29/2022, 05/21/2021, 10/16/2020, Additional history exists Diabetes: Annual Urine Albumin-Creatinine Ratio (uACR) 08/17/2024 08/17/2023 Colorectal Cancer Screening: Colonoscopy 01/27/2026 01/27/2021 Breast Cancer Screening 06/30/2026 06/30/20, 05/28/2023, 05/22/2022, Additional history exists Cervical Cancer Screening: HPV 04/02/2027 04/02/2022 Cholesterol Screening (Lipid Panel) 11/17/2027 11/16/2022 DTaP,Tdap,and Td Vaccines (3 - Td or Tdap) 03/29/2034 03/29/2024, 11/24/2011 Hepatitis C Screening Completed 03/28/2002 Influenza Vaccine Completed 04/05/2024, , 05/10/2022, Additional history exists HIB Vaccines Aged Out No longer eligi ble based on patient's age to complete this topic HPV Vaccines Aged Out No longer eligi ble based on patient's age to complete this topic Hepatitis A Vaccines Aged Out No long er eligible based on patient's age to complete this topic Hepatitis B Vaccines Aged Out No long er eligible based on patient's age to complete this topic IPV Vaccines Aged Out No longer eligi ble based on patient's age to complete this topic MMR Vaccines Aged Out No longer eligi ble based on patient's age to complete this topic Meningococcal ACWY Vaccine Aged Out N o longer eligible based on patient's age to complete this topic Meningococcal B Vaccine Aged Out No l onger eligible based on patient's age to complete this topic RSV Immunization Patients Under 20 months Aged Out No longer eligible based on patient's age to complete this topic Varicella Vaccines Aged Out No longer eligible based on patient's age to complete this topic Procedures Procedure Name Priority Date/Time Associated Diagnosis Comments MG MAMMO DIGITAL SCREENING W RUY BILAT Routine 06/30/2024 1:05 PM EST Encounter for screening mammogram for breast cancer URINE ALBUMIN CREATININE RATIO Routine 08/17/2023 ANNUAL BMP BLOOD TEST Routine 11/16/2022 HEMOGLOBIN A1C Routine 11/16/2022 LIPID PANEL Routine 11/16/2022 HPV Routine 04/02/2022 COLONOSCOPY Routine 01/27/2021 HEPATITIS C SCREENING Routine 03/28/2002 from Last 3 Months or Most Recently Relevant to Health Maintenance Results * MG Mammo Digital Screening w Ruy bilat (06/30/2024 1:05 PM EST) Anatomical Region Laterality Modality Breast Bilateral Mammography 06/30/2024 4:16 PM EST Impressions 06/30/2024 4:20 PM EST No mammographic evidence for malignancy. BI-RADS CATEGORY: 1 - NEGATIVE RECOMMENDATION: Screening bilateral mammogram is recommended in 1 year. -------- FINAL REPORT -------- Dictated By: Josefina Hancock Dictated Date: 06/30/2024 16:16 ET Assigned Physician: Josefina Hancock Reviewed and Electronically Signed By: Josefina Hancock Signed Date: 06/30/2024 16:20 ET Workstation ID: [id number] Transcribed By: Self Edit Transcribed Date: 06/30/2024 16:16 ET Narrative 06/30/2024 4:20 PM EST EXAMINATION TYPE: MG MAMMO DIGITAL SCREENING W RUY BILAT DATE OF EXAM ORDERED: 06/30/2024 12:57 PM COMPARISON: Prior studies, latest from 05/28/2023. REASON FOR STUDY: ??Breast cancer screen, avg risk, asymptomatic (Age => 40y) TECHNIQUE: Bilateral mediolateral oblique and craniocaudal views ??were obtained digitally with 3-D mammogram (digital breast tomosynthesis) with CAD. Computer- aided detection was utilized in evaluation of this examination (SecondLook; iCAD). FINDINGS: The breast tissue distribution pattern is unchanged. There is no suspicious mass, suspicious calcifications or suspicious architectural distortion. BREAST DENSITY: B - There are scattered areas of fibroglandular density. Procedure Note Josefina Hancock MD - 06/30/2024 EXAMINATION TYPE: MG MAMMO DIGITAL SCREENING W RUY BILAT DATE OF EXAM ORDERED: 06/30/2024 12:57 PM COMPARISON: Prior studies, latest from 05/28/2023. REASON FOR STUDY: Breast cancer screen, avg risk, asymptomatic (Age =>40y) TECHNIQUE: Bilateral mediolateral oblique and craniocaudal views wereobtained digitally with 3-D mammogram (digital breast tomosynthesis) withCAD. Computer- aided detection was utilized in evaluation of thisexamination (SecondLook; iCAD). FINDINGS: The breast tissue distribution pattern is unchanged. There is nosuspicious mass, suspicious calcifications or suspicious architecturaldistortion. BREAST DENSITY: B - There are scattered areas of fibroglandular density. IMPRESSION: No mammographic evidence for malignancy. BI-RADS CATEGORY: 1 - NEGATIVE RECOMMENDATION: Screening bilateral mammogram is recommended in 1 year. -------- FINAL REPORT -------- Dictated By: Josefina Hancock Dictated Date: 06/30/2024 16:16 ET Assigned Physician: Josefina Hancock Reviewed and Electronically Signed By: Josefina Hancock Signed Date: 06/30/2024 16:20 ET Workstation ID: [id number] Transcribed By: Self Edit Transcribed Date: 06/30/2024 16:16 ET Result [facility] Bridgett Boo MD IMG BI PROCEDURES Final Result * Urine Albumin Creatinine Ratio (08/17/2023) [facility] Urine Albumin Creatinine Ratio ABSTRACTED Result [facility] HEALTH MAINTENANCE Final Result * Annual BMP Blood Test (11/16/2022) [facility]ologist [facility] Annual BMP Blood Test ABSTRACTED Result [facility] HEALTH [facility] Final Result * Hemoglobin A1c (11/16/2022) Pathologist [facility] Hemoglobin A1C 6.2 <=6.5 % Blood Venous blood specimen / Unknown Result [facility] LAB BLOOD ORDERABLES Sonja l Result * (ABNORMAL) Lipid panel (11/16/2022) LDL/HDL Ratio 3 0 - 4 Triglycerides 168(A) 0 - 150 mg/dL Cholesterol 158 0 - 200 mg/dL HDL 58 >=40 mg/dL LDL Cholesterol 67 0 - 100 mg/dL Blood Venous blood specimen / Unknown Result [facility] Provider LAB BLOOD ORDERABLES Sonja l Result * Cervical Cancer Screening: HPV (04/02/2022) [facility] Cervical Cancer Screening: HPV NEGATIVE, ABSTRACTED Historical Provider HEALTH MAINTENANCE Final Result * Colonoscopy (01/27/2021) [facility] Colonoscopy NO INTERPRETATION , ABSTRACTED Anatomical Region Laterality Modality Other [facility] Provider HEALTH MAINTENANCE Final Result * Hepatitis C Screening (03/28/2002) [facility] Hepatitis C Screening ABSTRACTED Historical Provider HEALTH MAINTENANCE Final Result from Last 3 Months or Most Recently Relevant to Health Maintenance [place] [address] [place] [address] Care Teams [employer] Maintenance Worker Relationship Specialty Start Date End Date Bridgett Boo MD PCP - General Internal Medicine 01/21/22
--- OUTSIDE RECORDS SUMMARY | 2024-11-23 08:42 | XMS_ITS | Encounter Summary ---
Author Organization [facility] Address [address] [place] [address] Care Team Providers Care Glove Maker Name Role Phone Susan La MD Primary Care Provider Bridgett Zavala MD Primary Care Prov ider [facility], Pcp Primary Care Provider [facility] e Reason for Visit * Reason Onset Date Comments Faxed Refill 09/16/2018 Encounter Details Date Type Department Care Team Description 09/16/2018 Refill Nephrology - [address] [address] Gumaro Kc MD [address] [place] [address] Faxed Refill Social History Tobacco Use Types Packs/Day Years [...] on filedocumented in this encounter Care Teams Glove Maker Relationship Specialty Start Date End Date Susan La MD PCP - General 09/08/00 01/20/22 Bridgett Schulz MD [address] [place] [phone] PCP - General Internal Medicine 01/21/22 01/13/23 [facility], Pcp [address] [place] [id number] PCP - General Internal Medicine 01/14/23 documented as of this encounter
--- OUTSIDE RECORDS SUMMARY | 2024-11-23 08:42 | XMS_ITS | Encounter Summary ---
Author Organization [facility] Address [address] [place] [address] Care Team Providers Care Solar Installation Crew Supervisor Name Role Phone Susan La MD Primary Care Provider Bridgett Zavala MD Primary Care Prov ider [facility], Pcp Primary Care Provider [facility] Encounter Details Date Type Department Care Team Description 11/28/2009 Eye Mediation Commissioner Report Medical Records [address] [place] [phone] Mega Gilbert MD Social History Tobacco Use Types Packs/Day Years Used Date Smoking Tobacco: Former Cigarettes Q uit: 07/11/2006 Comments:occ cig one to two once or [...] on filedocumented in this encounter Care Teams Solar Installation Crew Supervisor Relationship Specialty Start Date End Date Susan La MD PCP - General 09/08/00 01/20/22 Bridgett Schulz MD [address] [place], [place] [phone] PCP - General Internal Medicine 01/21/22 01/13/23 [facility], [place] [address] PCP - General Internal Medicine 01/14/23 documented as of this encounter
--- OUTSIDE RECORDS SUMMARY | 2024-11-23 08:42 | XMS_ITS | Encounter Summary ---
Author Organization [facility] Address [address] [place] [address] Care Team Providers Care Brinell Tester Name Role Phone Susan La MD Primary Care Provider Bridgett Zavala MD Primary Care Prov ider [facility], Pcp Primary Care Provider Unavailabl e Reason for Visit * Reason Comments E-prescribe Rx Request Encounter Details Date Type Department Care Team Description 08/22/2020 Refill Adult Medicine [address] [address] Susan La MD E-prescribe Rx Request Social History Tobacco Use Types Packs/Day Years [...] encounter Miscellaneous Notes * Telephone Encounter - Chelle Dawit - 08/22/2020 1:17 PM EST Patient would like script to be: E-PRESCRIBED/FAXED TO PHARMACY WHEN WAS THE PATIENT'S LAST APPOINTMENT IN ADULT MEDICINE? 05/22/2020 WHEN WAS THE LAST TIME THE PATIENT SAW THEIR PCP? Same as above Does patient have an upcoming appointment? Yes 09/30/2020 (THE MEDICATION REQUESTED IS ON THE MED LIST ABOVE) All of the medications requested were on the CURRENT MEDS list Did you check the Pharmacy information above?: YES Patient wants: 90 -day supply Is this a mail order prescription request ? NO If the refill is from a FAXED refill request what is the RX # listed on the fax? N/A Patients current insurance carrier is: Payor: [facility] / Plan: PPO $[id number] / Product Type: PPO [id number] documented in this encounter Plan of Treatment Not on file documented as of this encounter Visit Diagnoses Not on filedocumented in this encounter Care Teams Brinell Tester Relationship Specialty Start Date End Date Susan La MD PCP - General 09/08/00 01/20/22 Bridgett Schulz MD [address] [place] [phone] PCP - General Internal Medicine 01/21/22 01/13/23 [place] [address] PCP - General Internal Medicine 01/14/23 documented as of this encounter
--- OUTSIDE RECORDS SUMMARY | 2024-11-23 08:42 | XMS_ITS | Encounter Summary ---
Author Organization [facility] Address [address] [place] [address] Care Team Providers Care Mortgage Accounting Clerk Name Role Phone Susan La MD Primary Care Provider Bridgett Zavala MD Primary Care Prov ider [facility], Pcp Primary [facility] Encounter Details Date Type Department Care Team Description 10/15/2019 Orders Only Radiology - [address] [address] Susan La MD Social History Tobacco Use [...] on filedocumented in this encounter Care Teams Mortgage Accounting Clerk Relationship Specialty Start Date End Date Susan La MD PCP - General 09/08/00 01/20/22 Bridgett Schulz MD [address] [place], [place] [phone] PCP - General Internal Medicine 01/21/22 01/13/23 [facility], Pcp [address] [place], [place] [phone] PCP - General Internal Medicine 01/14/23 documented as of this encounter
--- OUTSIDE RECORDS SUMMARY | 2024-11-23 08:42 | XMS_ITS | Encounter Summary ---
Author Organization [facility] Address [address] [place] [address] Care Team Providers Care Sales Agent Pest Control Service Name Role Phone Bridgett Schulz MD Primary Care Prov ider [facility], Pcp Primary Care Provider Unavailabl e Reason for Visit * Reason Comments E-prescribe Rx Request Encounter Details Date Type Department Care Team Description 05/29/2022 Refill Nephrology [facility] [address] [place] [address] Gumaro Kc MD [address] [place] [id number] E-prescribe Rx Request Social History Tobacco Use Types Packs/Day Years Used Date Smoking Tobacco: Former Cigarettes Q uit: 07/11/2006 Smokeless Tobacco: Never Comments:Quit 2006,occ cig o ne to two once or [...] on filedocumented in this encounter Care Teams Sales Agent Pest Control Service Relationship Specialty Start Date End Date Bridgett Schulz MD [address] [place] [phone] PCP - General Internal Medicine 01/21/22 01/13/23 [facility], Pcp [address] [place] [phone] PCP - General Internal Medicine 01/14/23 documented as of this encounter
--- OUTSIDE RECORDS SUMMARY | 2024-11-23 08:42 | XMS_ITS | Encounter Summary ---
Author Organization [facility] Address [address] [place] [address] Care Team Providers Care Movie Critic Name Role Phone Bridgett Schulz MD Primary Care Prov ider On License Of [facility], Pcp Primary Care Provider Unavailabl e Encounter Details Date Type Department Care Team Description 05/28/2022 Refill Nephrology [facility] [address] [place] [address] Gumaro cK MD [address] [place] [address] Social History Tobacco Use Types Packs/Day Years [...] on filedocumented in this encounter Care Teams Movie Critic Relationship Specialty Start Date End Date Bridgett Schulz MD [address] [place] [address] PCP - General Internal Medicine 01/21/22 01/13/23 On License Of [facility], Pcp [address] [place] [address] PCP - General Internal Medicine 01/14/23 documented as of this encounter
--- OUTSIDE RECORDS SUMMARY | 2024-11-23 08:42 | XMS_ITS | Clinical Summary ---
Author Organization [facility] Address [address] [place] [phone] Phone Care Team Providers Care Journal Clerk Name Role Phone Susan La MD Primary Care Provider [phone] Allergies Active Allergy Reactions Criticality Noted Date Comments Latex Rash Low 09/20/2024 Nystatin Itching 04/10/2008 Other Reaction(s): rash/throat sensation Tetracycline Other (see comments),Rash Low 04/11/2005 Other Reaction(s): rash, Rash/Dermatitis Medications albuterol HFA (PROVENTIL HFA;VENTOLIN HFA) 108 (90 Base) MCG/ACT inhaler Inhale 2 puffs every 6 (six) hours if needed for wheezing Active amLODIPine (NORVASC) 2.5 MG tablet Take 2.5 mg by mouth 1 (one) time each day Active buPROPion XL (WELLBUTRIN XL) 150 MG 24 hr tablet Take 150 mg by mouth 1 (one) time each day Do not crush, chew, or split. Active FLUoxetine (PROzac) 40 MG capsule Take 40 mg by mouth 1 (one) time each day Active Continuous Glucose Sensor (FreeStyle Linda 3 Sensor) misc Active gabapentin (NEURONTIN) 300 MG capsule Take 300 mg by mouth in the morning and 300 mg in the evening and 300 mg before bedtime. Active losartan (COZAAR) 100 MG tablet Take 100 mg by mouth 1 (one) time each day Active lovastatin (MEVACOR) 40 MG tablet Take 40 mg by mouth every night Active metFORMIN (GLUCOPHAGE) 500 MG tablet Take 500 mg by mouth 1 (one) time each day with breakfast Active methotrexate 2.5 MG tablet Take by mouth 3 (three) doses per week. Take doses 12 (twelve) hours apart from each other. Follow directions carefully, and ask to explain any part you do not understand. Take exactly as directed. Active ondansetron (ZOFRAN) 4 MG tablet Take 4 mg by mouth every 8 (eight) hours if needed for nausea or vomiting Active spironolactone (ALDACTONE) 25 MG tablet Take 25 mg by mouth 1 (one) time each day Active tiZANidine (ZANAFLEX) 4 MG capsule Take 4 mg by mouth 1 (one) time each day if needed for muscle spasms Active Active Problems Problem Noted Date Diagnosed Date Chronic kidney disease, stage 2 (mild) Glaucoma 06/26/2011 Asthma Spinal stenosis of cervical region Type 2 diabetes mellitus wit h diabetic chronic kidney disease Chronic sinusitis Diabetes mellitus Gastritis Fibromyalgia Hyperlipidemia Hypertension Proteinuria Obstructive sleep apnea syndrome Resolved Problems Problem Noted Date Diagnosed Date Resolved Date Chronic kidney disease stage 3 due to type 2 diabetes mellitus 09/24/2024 Encounters Date Type Department Care Team Description 09/24/2024 3:30 PM EDT [facility] Visit [facility] [address] [address] Gumaro Kc MD Chronic kidney disease, stage 2 (mild) (Primary Dx); Type 2 diabetes mellitus with diabetic chronic kidney disease (HCC); Hypertension from Last 3 Months Immunizations Immunization Administration Dates Next Due Influenza (IM) Preservative Free 023,05/10/2016,05/10/2014,05/22,06/06/2012,03/24/2011,08/26/2010 ,04/18/2009 Influenza, Injectable, Madin Giovanna Canine Kidney, Preservative Free 04/05/2024 Influenza, MDCK, PF, Quadrivalent 2021,04/15/2021,06/07/2020,05/26 Influenza, MDCK, Quadrivalen t, with preservative 05/24/2017 Moderna SARS-COV-2 05/21/2021,10/16/2020, 021 PPD Test 11/03/2004 Pneumococcal Polysaccharide 05/10/2014 Shingrix 05/21/2021 Td 03/29/2024 Td, Unspecified 03/29/2024 Tdap 11/24/2011 Family History Medical History Relation Comments Hypertension Father RENAL DISEASE Father Colon cancer Mother Diabetes Mother Hypertension Mother Relation Status Comments Father Mother Social History Tobacco Use Types Packs/Day Years Used Date Smoking Tobacco: Never Smokeless Tobacco: Never Tobacco Cessation:Counseling Given: Not Answered Alcohol Use Standard Drinks/Week Comments Never 0 (1 standard drink = 0.6 oz pur e alcohol) Comments Unknown Sex and Gender Information Value Date Recorded Sex Assigned at Not on file Legal Sex Female 9:09 AM EST Gender Identity Not on file Sexual Orientation Not on file Last Filed Vital Signs Vital Sign Reading Time Taken Comments Blood Pressure 154/78 09/24/2024 3:38 PM EDT Pulse 71 09/24/2024 3:38 PM EDT Temperature - - Respiratory Rate - - Oxygen Saturation - - Inhaled Oxygen Concentration - - Weight 96.9 kg (213 lb 9.6 oz) 09/24/2024 3:38 P M EDT Height - - Body Mass Index - - Plan of Treatment Upcoming Encounters Date Type Department Care Team (Late st Contact Info) Description 03/25/2025 3:00 PM EDT Office Visit [facility] [address] [phone] Gumaro Kc MD [address] [phone] Health Maintenance Due Date Last Done Comments Breast Cancer Screening 1961 Colorectal Cancer Screening: Annual FOBT 2010 Colorectal Cancer Screening: Colonoscopy 2010 Colorectal Cancer Screening: Sigmoidoscopy 2010 Pneumococcal Vaccine: 50+ Years (2 of 2 - PCV) 05/10/2015 05/10/2014 Diabetes: Hemoglobin A1C 07/10/2024 11/16/2022 Diabetes: Ophthalmology Exam 07/10/2024 09/24/2011, 09/05/2007 Diabetes: Pedal Pulse Checked 07/10/2024 Diabetes: Sensory Foot Exam 07/10/2024 Diabetes: Visual Foot Exam 07/10/2024 Pneumococcal Vaccine: Peds (0 to 5 Years) and At-Risk Patients (6 to 49 Years) Discontinued 05/10/2014 Influenza Vaccine Completed 04/05/2024, , 05/10/2022, Additional history exists Hepatitis B Vaccine Aged Out No longe r eligible based on patient's age to complete this topic Insurance [facility] Care Teams Journal Clerk Relationship Specialty Start Date End Date Susan La MD [address] [place] [address] PCP - General Internal Medicine 07/06/24
--- OUTSIDE RECORDS SUMMARY | 2024-11-23 08:42 | XMS_ITS | Encounter Summary ---
Author Organization [facility] Address [address] [place] [address] Care Team Providers Care National Expansion Recruiter Name Role Phone Bridgett Schulz MD Primary Care Prov ider [facility], Pcp Primary Care Provider Unavailabl e Reason for Visit * Reason Comments E-prescribe Rx Request Encounter Details Date Type Department Care Team Description 05/29/2022 Refill Nephrology [facility] [address] [place] [address] Gumaro Kc MD [address] [place] [address] E-prescribe Rx Request Social History Tobacco Use [...] on filedocumented in this encounter Care Teams National Expansion Recruiter Relationship Specialty Start Date End Date Bridgett Schulz MD [address] [place] [address] PCP - General Internal Medicine 01/21/22 01/13/23 [facility], Pcp [address] [place] [address] PCP - General Internal Medicine 01/14/23 documented as of this encounter
--- OUTSIDE RECORDS SUMMARY | 2024-11-23 08:42 | XMS_ITS | Encounter Summary ---
Author Organization [facility] Address [address] [place] [address] Care Team Providers Care Corduroy Cutter Operator Name Role Phone Susan La MD Primary Care Provider Bridgett Zavala MD Primary Care Prov ider [facility], Pcp Primary Care Provider Unavailabl e Reason for Visit * Reason Onset Date Comments Error 05/23/2013 Encounter Details Date Type Department Care Team Description 05/23/2013 Telephone Adult Medicine [address] [address] Susan La MD Error Social History Tobacco Use Types Packs/Day Years [...] on filedocumented in this encounter Care Teams Corduroy Cutter Operator Relationship Specialty Start Date End Date Susan La MD PCP - General 09/08/00 01/20/22 Bridgett Schulz MD [address] [place] [address] PCP - General Internal Medicine 01/21/22 01/13/23 [facility], Pcp [address] [place] [address] PCP - General Internal Medicine 01/14/23 documented as of this encounter
--- OUTSIDE RECORDS SUMMARY | 2024-11-23 08:42 | XMS_ITS | Encounter Summary ---
Author Organization [facility] Address [address] [place] [address] Care Team Providers Care High Risk Ob Name Role Phone Susan La MD Primary Care Provider Bridgett Zavala MD Primary Care Prov ider [facility], Pcp Primary Care Provider [facility] Encounter Details Date Type Department Care Team Description 04/05/2019 Refill Physiatry - [address] [address] Jeremy Salvador DO Social History Tobacco Use Types Packs/Day Years [...] encounter Miscellaneous Notes * Telephone Encounter - Shellie Singh M.A. - 04/05/2019 4:50 PM EDT Rx sent to pharmacy. * Telephone Encounter - Jeremy Salvador - 04/05/2019 4:37 PM EDT Follow-up as needed before any additional refills after this one. * Telephone Encounter - Shellie Siddiqi - 04/05/2019 4:31 PM EDT Misha 04/17/18 Nov no future appointments Last filled 04/17/18 x 11 refills * Telephone Encounter - Shellie Singh M.A. - 04/05/2019 4:07 PM EDTFrom: Dianna Ellington To: Jeremy Salvador DO Sent: 04/05/2019 3:55 PM EDT Subject: Medication Renewal Request Original authorizing provider: DO Dianna Pizarro would like a refill of the following medications: tizanidine (ZANAFLEX) 4 MG tablet [Jeremy Salvador DO] [id number] [place] [address] [address] [facility] Comment: documented in this encounter Plan of Treatment Not on file documented as of this encounter Visit Diagnoses Diagnosis Neck pain Cervicalgia Cervical radiculitis Brachial neuritis or radiculitis nos Osteoarthritis of spine with radiculopathy, cervical region Muscle spasm Spasm of muscle documented in this encounter Care Teams High Risk Ob Relationship Specialty Start Date End Date Susan La MD PCP - General 09/08/00 01/20/22 Bridgett Schulz MD [address] [place] [address] PCP - General Internal Medicine 01/21/22 01/13/23 [facility], [address] [address] PCP - General Internal Medicine 01/14/23 documented as of this encounter
--- OUTSIDE RECORDS SUMMARY | 2024-11-23 08:42 | XMS_ITS | Encounter Summary ---
Author Organization [facility] Address [address] [place] [address] Care Team Providers Care Document Manager Name Role Phone Susan La MD Primary Care Provider Bridgett Zavala MD Primary Care Prov ider [facility], Pcp Primary Care Provider [facility] Encounter Details Date Type Department Care Team Description 02/20/2020 Pt. Non Urgent Medic al Question Adult Medicine [address] [address] Susan La MD Social History Tobacco Use [...] Miscellaneous Notes * Telephone Encounter - Viviane Turner M.A. - 02/21/2020 9:17 AM EDTFrom: Dianna Ellington To: Susan La MD Sent: 02/20/2020 4:46 PM EDT Subject: Letter Thank you for responding so quickly. Can I go tomorrow to the office to pick it up? They want to see the signature. Again, Thank you, Dianna documented in this encounter Plan of Treatment Not on file documented as of this encounter Visit Diagnoses Not on filedocumented in this encounter Care Teams Document Manager Relationship Specialty Start Date End Date Susan La MD PCP - General 09/08/00 01/20/22 Bridgett Schulz MD [address] [place] [address] PCP - General Internal Medicine 01/21/22 01/13/[address] [address] PCP - General Internal Medicine 01/14/23 documented as of this encounter
--- OUTSIDE RECORDS SUMMARY | 2024-11-23 08:42 | XMS_ITS | Encounter Summary ---
Author Organization [facility] Address [address] [place] [address] Care Team Providers Care Radio Presenter Name Role Phone Susan La MD Primary Care Provider Bridgett Zavala MD Primary Care Prov ider [facility], Pcp Primary Care Provider Unavailabl e Reason for Visit * Reason Onset Date Comments other 05/20/2010 LEFT MESSSAGE TO CONTACT THE OFFICE Encounter Details Date Type Department Care Team Description 05/20/2010 Telephone Adult Medicine - [address] [address] Susan La MD other (LEFT MESSSAGE TO CONTACT THE OFFICE ) Social History Tobacco Use Types Packs/Day Years [...] encounter Miscellaneous Notes * Telephone Encounter - Gillian Villela - 05/20/2010 9:50 AM EDT PLEASE TRANSFER CALL TO EXT :[phone] documented in this encounter Plan of Treatment Not on file documented as of this encounter Visit Diagnoses Not on filedocumented in this encounter Care Teams Radio Presenter Relationship Specialty Start Date End Date Susan La MD PCP - General 09/08/00 01/20/22 Bridgett Schulz MD [address] [place] [address] PCP - General Internal Medicine 01/21/22 01/13/23 [facility], [address] [address] PCP - General Internal Medicine 01/14/23 documented as of this encounter
--- OUTSIDE RECORDS SUMMARY | 2024-11-23 08:42 | XMS_ITS | Encounter Summary ---
Author Organization [facility] Address [address] [place] [address] Care Team Providers Care Hair Machine Operator Name Role Phone Susan La MD Primary Care Provider Bridgett Zavala MD Primary Care Prov ider [facility], Pcp Primary Care Provider [facility] Encounter Details Date Type Department Care Team Description 02/20/2020 Pt. Non Urgent Medic al Question Adult Medicine [address] [address] Susan La MD Social History Tobacco Use [...] encounter Miscellaneous Notes * Telephone Encounter - Erlinda Lindsey M.A. - 02/20/2020 2:00 PM EDTFrom: Dianna Ellington To: Susan La MD Sent: 02/20/2020 2:00 PM EDT Subject: Doctor's note Hi! 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 I sent the one you gave me in September but they asked for updated signed doctor???s note that supports your request to work remotely will beneeded . Thank you, Dianna documented in this encounter Plan of Treatment Not on file documented as of this encounter Visit Diagnoses Not on filedocumented in this encounter Care Teams Hair Machine Operator Relationship Specialty Start Date End Date Susan La MD PCP - General 09/08/00 01/20/22 Bridgett Schulz MD [address] [place] [address] PCP - General Internal Medicine 01/21/22 01/13/[address] [address] PCP - General Internal Medicine 01/14/23 documented as of this encounter
--- OUTSIDE RECORDS SUMMARY | 2024-11-23 08:42 | XMS_ITS | Encounter Summary ---
Author Organization [facility] Address [address] [place] [address] Care Team Providers Care Application Development Consultant Name Role Phone Susan La MD Primary Care Provider Bridgett Zavala MD Primary Care Prov ider [facility], Pcp Primary Care Provider [facility] Encounter Details Date Type Department Care Team Description 04/28/2020 Pt. Non Urgent Medic al Question Adult Medicine [address] [address] Susan La MD Social History Tobacco Use [...] encounter Miscellaneous Notes * Telephone Encounter - Debi Soliz M.A. - 04/28/2020 2:51 PM EDTFrom: Dianna Ellington To: Susan La MD Sent: 04/28/2020 2:50 PM EDT Subject: Appointment I have been waiting for someone to call me to scheduled a new appt. as Dr. La told me since so far I haven't heard from her office. I am suppose to see her every 4 months. Could someone please help me to schedule an appointment? I am available any day of the week except for Tuesday from 2:00 pm until 5:00 pm. I need to know the appointment's date at least two week in advance, Thank you. documented in this encounter Plan of Treatment Not on file documented as of this encounter Visit Diagnoses Not on filedocumented in this encounter Care Teams Application Development Consultant Relationship Specialty Start Date End Date Susan La MD PCP - General 09/08/00 01/20/22 Bridgett Schulz MD [address] [place] [address] PCP - General Internal Medicine 01/21/22 01/13/[address] [address] PCP - General Internal Medicine 01/14/23 documented as of this encounter
--- OUTSIDE RECORDS SUMMARY | 2024-11-23 08:42 | XMS_ITS | Encounter Summary ---
Author Organization [facility] Address [facility] [place] [address] Care Team Providers Care Engine Dispatcher Name Role Phone Susan La MD Primary Care Provider Bridgett Zavala MD Primary Care Prov ider [facility], Pcp Primary Care Provider Unavailabl e Reason for Visit * Reason Onset Date Comments Mychart Rx Refill 12/31/2018 Encounter Details Date Type Department Care Team Description 12/31/2018 Refill Adult Medicine [address] [address] Susan La MD Mychart Rx Refill Social History Tobacco Use Types Packs/Day [...] Telephone Encounter - Viviane Turner M.A. - 01/01/2019 7:45 AM EDT Lab Results Component Value Date NA 137 10/17/2018 K 3.9 10/17/2018 CO2 28 10/17/2018 CL 102 10/17/2018 BUN 15 10/17/2018 CREAT 1.02 10/17/2018 GLU 75 10/08/2018 CA 9.7 10/17/2018 GFR 56 10/17/2018 Pending ov with pcp 01/15/19 * Telephone Encounter - Viviane Turner M.A. - 01/01/2019 7:45 AM EDTFrom: Dianna Ellington To: Susan La MD Sent: 12/31/2018 1:18 PM EDT Subject: Medication Renewal Request Original authorizing provider: MD Dianna Marion would like a refill of the following medications: lisinopril (PRINIVIL,ZESTRIL) 10 MG tablet [Susan La MD] Preferred pharmacy: [facility] [address] [place] [address] OSMAN FINK [facility] AT [facility] KIANNA HUTCHINSON Comment: documented in this encounter Plan of Treatment Not on file documented as of this encounter Visit Diagnoses Not on filedocumented in this encounter Care Teams Engine Dispatcher Relationship Specialty Start Date End Date Susan La MD PCP - General 09/08/00 01/20/22 Bridgett Schulz MD [address] [place] [address] PCP - General Internal Medicine 01/21/22 01/13/23 [facility], [address] [address] PCP - General Internal Medicine 01/14/23 documented as of this encounter
--- OUTSIDE RECORDS SUMMARY | 2024-11-23 08:42 | XMS_ITS | Encounter Summary ---
Author Organization [facility] Address [address] [place] [address] Care Team Providers Care Tool And Cutter Grinder Name Role Phone Bridgett Schulz MD Primary Care Prov ider [facility], Pcp Primary Care Provider Unavailabl e Reason for Visit * Reason Comments E-prescribe Rx Request Encounter Details Date Type Department Care Team Description 05/28/2022 Refill Nephrology [facility] [address] [place] [address] Gumaro Kc MD [address] [place] [address] E-prescribe Rx Request Social History Tobacco Use [...] on filedocumented in this encounter Care Teams Tool And Cutter Grinder Relationship Specialty Start Date End Date Bridgett Schulz MD [address] [place] [address] PCP - General Internal Medicine 01/21/22 01/13/23 [facility], Pcp [address] [place] [address] PCP - General Internal Medicine 01/14/23 documented as of this encounter
--- OUTSIDE RECORDS SUMMARY | 2024-11-23 08:43 | XMS_ITS | Encounter Summary ---
Author Organization [facility] Address [facility] [place] [address] Care Team Providers Care 1St Pressman On Web Press Name Role Phone Susan La MD Primary Care Provider Bridgett Zavala MD Primary Care Prov ider [facility], Pcp [facility] Encounter Details Date Type Department Care Team Description 05/26/2021 Refill Nephrology [facility] [address] [place] [address] Gumaro Kc MD [address] [place] [address] Social History Tobacco Use Types Packs/Day Years [...] Exposure Response Date Recorded In the last month, have you been in contact with someone who was confirmed or suspected to have Coronavirus / COVID-19? No / Unsure 05/16/2021 2:31 PM EDT documented as of this encounter Plan of Treatment Not on file documented as of this encounter Visit Diagnoses Not on filedocumented in this encounter Care Teams 1St [employer] On Web Press Relationship Specialty Start Date End Date Susan La MD PCP - General 09/08/00 01/20/22 Bridgett Schulz MD [address] [place] [address] PCP - General Internal Medicine 01/21/22 01/13/23 [facility], Pcp [address] [place] [address] PCP - General Internal Medicine 01/14/23 documented as of this encounter
--- OUTSIDE RECORDS SUMMARY | 2024-11-23 08:43 | XMS_ITS | Encounter Summary ---
Author Organization [facility] Address [address] [place] [address] Care Team Providers Care Residential Program Worker Name Role Phone Susan La MD Primary Care Provider Bridgett Zavala MD Primary Care Prov ider [facility], Pcp [facility] Encounter Details Date Type Department Care Team Description 01/13/2021 Refill Gastroenterology - [address] [place] [id number] Margaux Colbert MD [address] [place] [address] Social History Tobacco Use Types Packs/Day Years [...] have Coronavirus / COVID-19? No / Unsure 01/13/2021 3:50 PM EDT documented as of this encounter Plan of Treatment Not on file documented as of this encounter Visit Diagnoses Not on filedocumented in this encounter Care Teams Residential Program Worker Relationship Specialty Start Date End Date Susan La MD PCP - General 09/08/00 01/20/22 Bridgett Schluz MD [address] [place] [address] PCP - General Internal Medicine 01/21/22 01/13/23 [facility], Pcp [address] [place] [address] PCP - General Internal Medicine 01/14/23 documented as of this encounter
--- OUTSIDE RECORDS SUMMARY | 2024-11-23 08:43 | XMS_ITS | Encounter Summary ---
Author Organization [facility] Address [address] [place] [address] Care Team Providers Care Jewellery Designer Name Role Phone Susan La MD Primary Care Provider Bridgett Zavala MD Primary Care Prov ider [facility], Pcp Primary Care Provider [facility] Encounter Details Date Type Department Care Team Description 08/04/2011 Pt. Referral Request [facility] MyChart [address] [place] [address] Md Jude Social History Tobacco Use Types Packs/Day Years [...] on filedocumented in this encounter Care Teams Jewellery Designer Relationship Specialty Start Date End Date Susan La MD PCP - General 09/08/00 01/20/22 Bridgett Schulz MD [address] [place] [address] PCP - General Internal Medicine 01/21/22 01/13/23 [facility], Pcp [address] [place], [place] [address] PCP - General Internal Medicine 01/14/23 documented as of this encounter
--- OUTSIDE RECORDS SUMMARY | 2024-11-23 08:43 | XMS_ITS | Encounter Summary ---
Author Organization [facility] Address [address] [place] [address] Care Team Providers Care Office Spec Name Role Phone Susan La MD Primary Care Provider Bridgett Zavala MD Primary Care Prov ider [facility], Pcp Primary Care Provider [facility] Encounter Details Date Type Department Care Team Description 06/19/2015 Pt. Non Urgent Medical Question Nephrology - [address] [address] Gumaro Kc MD [address] [place] [address] Social History Tobacco Use Types Packs/Day Years Used Date Smoking Tobacco: Former Cigarettes Q uit: 07/11/2006 Smokeless Tobacco: Never Comments:occ cig one to two once or twice a yr Alcohol Use Standard Drinks/Week Comments No 0 (1 standard drink = 0.6 oz pur e alcohol) Sex Assigned at Date Recorded Female 01/12/2021 10:25 AM EDT Job Start Date Occupation Industry Not on file Not on file Not on file documented as of this encounter Progress Notes * Ling Garcia L.P.N. - 06/23/2015 4:19 PM ESTFrom: Dianna Ellington To: Gumaro Kc MD Sent: 06/19/2015 8:13 PM EST Subject: Spironolactone I'm writing to you because as I stopped taking the sprinolactone; I have gained weight (almost 10 pounds), hands and feet swollen, very bad headaches, eye redness, tire, and asthma. I went today to see Faisal Pastor in [facility] and she suggested to send you a message to let you know what's going on and see if I can continue taking the medication. Although you have not tell me to do so, I started taking the medication today because I can take the pain I am going through anymore. I think I have enough medication for now but I will need refills. I would appreciate your response to this message. Thank you, Dianna Ellington documented in this encounter Plan of Treatment Not on file documented as of this encounter Visit Diagnoses Not on filedocumented in this encounter Care Teams Office Spec Relationship Specialty Start Date End Date Susan La MD PCP - General 09/08/00 01/20/22 Bridgett Schulz MD [address] [place] [address] PCP - General Internal Medicine 01/21/22 01/13/[address] [address] PCP - General Internal Medicine 01/14/23 documented as of this encounter
--- OUTSIDE RECORDS SUMMARY | 2024-11-23 08:43 | XMS_ITS | Encounter Summary ---
Author Organization [facility] Address [address] [place] [address] Care Team Providers Care Warehouse Loader Name Role Phone Susan La MD Primary Care Provider Bridgett Zavala MD Primary Care Prov ider [facility], Pcp Primary Care Provider [facility] Encounter Details Date Type Department Care Team Description 11/14/2016 Release of Information Medical Records [address] [place] [id number] Abstract, Provider Social History Tobacco Use Types [...] on filedocumented in this encounter Care Teams Warehouse Loader Relationship Specialty Start Date End Date Susan La MD PCP - General 09/08/00 01/20/22 Bridgett Schulz MD [address] [place], [place] [phone] PCP - General Internal Medicine 01/21/22 01/13/23 [facility], [place] [address] PCP - General Internal Medicine 01/14/23 documented as of this encounter
--- OUTSIDE RECORDS SUMMARY | 2024-11-23 08:43 | XMS_ITS | Encounter Summary ---
Author Organization [facility] Address [address] [place] [address] Care Team Providers Care Hoof Trimmer Name Role Phone Susan La MD Primary Care Provider Bridgett Zavala MD Primary Care Prov ider [facility], Pcp Primary Care Provider [facility] e Encounter Details Date Type Department Care Team Description 12/25/2015 [place] [address] Susan aL MD Social History Tobacco Use Types Packs/Day [...] on filedocumented in this encounter Care Teams Hoof Trimmer Relationship Specialty Start Date End Date Susan La MD PCP - General 09/08/00 01/20/22 Bridgett Schulz MD [address] [place], [place] [phone] PCP - General Internal Medicine 01/21/22 01/13/23 [facility], Pcp [address] [place], [place] [phone] PCP - General Internal Medicine 01/14/23 documented as of this encounter
--- OUTSIDE RECORDS SUMMARY | 2024-11-23 08:43 | XMS_ITS | Encounter Summary ---
Author Organization [facility] Address [facility] [place] [address] Care Team Providers Care Engineering Aid Name Role Phone Susan La MD Primary Care Provider Bridgett Zavala MD Primary Care Prov ider [facility], Pcp Primary Care Provider Unavailabl e Reason for Visit * Reason Onset Date Comments LAB WORK 02/06/2021 Encounter Details Date Type Department Care Team Description 02/06/2021 Telephone General Surgery - [place] [address] [facility] [address] [place] [phone] Gloria Vargas, ,RDN,LDN [address] [facility] Randy [address] [place] [phone] LAB WORK Social History Tobacco Use Types Packs/Day Years [...] have Coronavirus / COVID-19? No / Unsure 02/06/2021 8:28 AM EDT documented as of this encounter Miscellaneous Notes * Telephone Encounter - Gloria Vargas MS,RDN,LDN - 02/06/2021 9:44 AM EDT Please order bariatric labs documented in this encounter Plan of Treatment Not on file documented as of this encounter Visit Diagnoses Not on filedocumented in this encounter Care Teams Engineering Aid Relationship Specialty Start Date End Date Susan La MD PCP - General 09/08/00 01/20/22 Bridgett Schulz MD [address] [place] [address] PCP - General Internal Medicine 01/21/22 01/13/23 [facility], [address] [address] PCP - General Internal Medicine 01/14/23 documented as of this encounter
--- OUTSIDE RECORDS SUMMARY | 2024-11-23 08:43 | XMS_ITS | Encounter Summary ---
Author Organization [facility] Address [address] [place] [address] Care Team Providers Care Aeronautical Drafter Name Role Phone Susan La MD Primary Care Provider Bridgett Zavala MD Primary Care Prov ider [facility], Pcp Primary Care Provider Unavailaston e Encounter Details Date Type Department Care Team Description 02/25/2021 Telephone General Surgery - [address] [place] [address] Vazquez Martines MD [address] [place] [address] [address] [place], [place] [phone] Social History Tobacco Use Types Packs/Day Years [...] encounter Miscellaneous Notes * Telephone Encounter - Shauna Rob - 02/25/2021 1:33 PM EDT Called pt 2x times busy line * Telephone Encounter - Michelle Arias M.A. - 02/25/2021 10:21 AM EDT I tried to see if I could route the message but wasn't able to. Pt said she can do appointment withbecky at 4 on 04/16 or any day at 4. documented in this encounter Plan of Treatment Not on file documented as of this encounter Visit Diagnoses Not on filedocumented in this encounter Care Teams Aeronautical Drafter Relationship Specialty Start Date End Date Susan La MD PCP - General 09/08/00 01/20/22 Bridgett Schulz MD [address] [place] [address] PCP - General Internal Medicine 01/21/22 01/13/23 [facility], [address] [address] PCP - General Internal Medicine 01/14/23 documented as of this encounter
--- OUTSIDE RECORDS SUMMARY | 2024-11-23 08:43 | XMS_ITS | Encounter Summary ---
Author Organization [facility] Address [facility] [place] [address] Care Team Providers Care Menu Planner Name Role Phone Susan La MD Primary Care Provider Bridgett Zavala MD Primary Care Prov ider [facility], Pcp Primary Care Provider Unavailabl e Reason for Visit * Reason Comments E-prescribe Rx Request Encounter Details Date Type Department Care Team Description 06/09/2021 Refill Adult Medicine [address] [address] Susan La MD E-prescribe Rx Request Social [...] have Coronavirus / COVID-19? No / Unsure 06/08/2021 2:03 PM EST documented as of this encounter Miscellaneous Notes * Telephone Encounter - Evelyne rOtiz M.A. - 06/09/2021 4:52 PM EST JORGE 09/30/2020 F/U appt 06/26/2021 Lab Results Component Value Date NA 140 04/25/2021 K 4.0 04/25/2021 CO2 29 04/25/2021 CL 105 04/25/2021 BUN 9 04/25/2021 CREAT 1.02 04/25/2021 GLU 104 04/25/2021 CA 9.4 04/25/2021 GFR 55 04/25/2021 Lab Results Component Value Date CHOL 165 09/15/2019 LDL 86 09/15/2019 HDL 55 09/15/2019 TRIG 120 09/15/2019 SGOT 25 04/25/2021 SGPT 27 04/25/2021 Lab Results Component Value Date HGBA1C 6.2 10/05/2020 MALBUR 202.0 04/01/2021 MALBCR 95.7 04/01/2021 CHOL 165 09/15/2019 LDL 86 09/15/2019 HDL 55 09/15/2019 TRIG 120 09/15/2019 GLU 104 04/25/2021 CREAT 1.02 04/25/2021 * Telephone Encounter - Francisca Farias - 06/09/2021 7:34 AM EST Patient would like script to be: E-PRESCRIBED/FAXED TO PHARMACY WHEN WAS THE PATIENT'S LAST APPOINTMENT IN ADULT MEDICINE? 09/30/20 WHEN WAS THE LAST TIME THE PATIENT SAW THEIR PCP? Same as above Does patient have an upcoming appointment? Yes 06/26/21 (THE MEDICATION REQUESTED IS ON THE MED [...] N/A Patients current insurance carrier is: Payor: [facility] / Plan: PPO $20 [place] [id number] / Product Type: PPO [id number] documented in this encounter Plan of Treatment Not on file documented as of this encounter Visit Diagnoses Not on filedocumented in this encounter Care Teams Menu Planner Relationship Specialty Start Date End Date Susan La MD PCP - General 09/08/00 01/20/22 Bridgett Schulz MD [address] [place] [address] PCP - General Internal Medicine 01/21/22 01/13/23 [facility], [address] [address] PCP - General Internal Medicine 01/14/23 documented as of this encounter
--- OUTSIDE RECORDS SUMMARY | 2024-11-23 08:43 | XMS_ITS | Encounter Summary ---
Author Organization [facility] Address [address] [place] [address] Care Team Providers Care Cyber Incident Analyst Name Role Phone Susan La MD Primary Care Provider Bridgett Zavala MD Primary Care Prov ider [facility], Pcp Primary Care Provider [facility] Encounter Details Date Type Department Care Team Description 10/05/2021 Refill Nephrology [facility] [address] [place] [address] Gumaro Kc MD [address] [place] [address] Social History Tobacco Use Types Packs/Day Years [...] on filedocumented in this encounter Care Teams Cyber Incident Analyst Relationship Specialty Start Date End Date Susan La MD PCP - General 09/08/00 01/20/22 Bridgett Schulz MD [address] [place] [phone] PCP - General Internal Medicine 01/21/22 01/13/23 [facility], Pcp [address] [place] [address] PCP - General Internal Medicine 01/14/23 documented as of this encounter
--- OUTSIDE RECORDS SUMMARY | 2024-11-23 08:43 | XMS_ITS | Encounter Summary ---
Author Organization [facility] Address [address] [place] [address] Care Team Providers Care Airplane Pilot Helper Name Role Phone Susan La MD Primary Care Provider Bridgett Zavala MD Primary Care Prov ider [facility], Pcp Primary Care Provider [facility] Encounter Details Date Type Department Care Team Description 09/20/2016 Pt. Referral Request [facility] MyChart [address] [place] [address] Md Jude Social History Tobacco Use Types [...] on filedocumented in this encounter Care Teams Airplane Pilot Helper Relationship Specialty Start Date End Date Susan La MD PCP - General 09/08/00 01/20/22 Bridgett Schulz MD [address] [place] [address] PCP - General Internal Medicine 01/21/22 01/13/23 [facility], Pcp [address] [place], [place] [phone] PCP - General Internal Medicine 01/14/23 documented as of this encounter
--- OUTSIDE RECORDS SUMMARY | 2024-11-23 08:43 | XMS_ITS | Encounter Summary ---
Author Organization [facility] Address [address] [place] [address] Care Team Providers Care Battery Charger Tester Name Role Phone Susan La MD Primary Care Provider Bridgett Zavala MD Primary Care Prov ider [facility], Pcp Primary Care Provider [facility] Encounter Details Date Type Department Care Team Description 06/09/2021 [place] [address] Gumaro Kc MD [address] [place] [address] Social History Tobacco Use Types Packs/Day Years [...] PM EST documented as of this encounter Plan of Treatment Not on file documented as of this encounter Visit Diagnoses Not on filedocumented in this encounter Care Teams Battery Charger Tester Relationship Specialty Start Date End Date Susan La MD PCP - General 09/08/00 01/20/22 Bridgett Schulz MD [address] [place] [address] PCP - General Internal Medicine 01/21/22 01/13/23 [facility], Pcp [address] [place] [address] PCP - General Internal Medicine 01/14/23 documented as of this encounter
--- OUTSIDE RECORDS SUMMARY | 2024-11-23 08:43 | XMS_ITS | Encounter Summary ---
Author Organization [facility] Address [facility] [place] [address] Care Team Providers Care Dairy Clerk Name Role Phone Susan La MD Primary Care Provider Bridgett Zavala MD Primary Care Prov ider [facility], Pcp Primary Care Provider Unavailabl e Reason for Visit * Reason Onset Date Comments sinus infection 10/19/2021 URI Symptoms 10/19/2021 Encounter Details Date Type Department Care Team Description 10/19/2021 Pt. Non Urgent Medic al Question Adult Medicine [address] [address] Susan La MD Social History Tobacco Use [...] as of this encounter Progress Notes * Vickie Palafox M.A. - 10/20/2021 7:14 AM EDT Please see Mychart to reach back out to patient, thank you. documented in this encounter Miscellaneous Notes * Telephone Encounter - Milagros Ferguson C.M.A. - 10/19/2021 8:14 AM EDTFrom: Dianna Ellington To: Margaux Bessie Sent: 10/19/2021 8:09 AM EDT Subject: Stomach problem Herein you will find the results of my ER visit to [facility]. They recommended me to share these with you as soon as possible. I believe that, what I am sure is a Norovirus diagnosis they turned into all this tras... Anyway, I started to feel much better yesterday but still feeling dizzy. I would like if possible and if you can, I was u nable to work from TuesdayOctober 14 to October 16, could you please give me a note for work. Just upload it to my chart and I do the rest, thank you. In addition, I am 98% sure that I have a sinus infection but because you are the doctors who knows my history with my sinus problems they did not believe me when I said so. Please let me know what to do about it. Again, Thank you. documented in this encounter Plan of Treatment Not on file documented as of this encounter Visit Diagnoses Not on filedocumented in this encounter Care Teams Dairy Clerk Relationship Specialty Start Date End Date Susan La MD PCP - General 09/08/00 01/20/22 Bridgett Schulz MD [address] [place] [address] PCP - General Internal Medicine 01/21/22 01/13/23 [facility], [address] [address] PCP - General Internal Medicine 01/14/23 documented as of this encounter
--- OUTSIDE RECORDS SUMMARY | 2024-11-23 08:43 | XMS_ITS | Encounter Summary ---
Author Organization [facility] Address [address] [place] [address] Care Team Providers Care Computer Applications Engineer Name Role Phone Susan La MD Primary Care Provider Bridgett Zavala MD Primary Care Prov ider [facility], [facility], Pcp Primary Care Provider [facility] Encounter Details Date Type Department Care Team Description 10/29/2020 Pt. Non Urgent Medical Question Nephrology - [address] [address] Gumaro Kc MD [address] [place] [address] Social History Tobacco Use Types Packs/Day Years [...] or suspected to have Coronavirus / COVID-19? Unable to assess 10/22/2020 7:45 AM EDT documented as of this encounter Miscellaneous Notes * Telephone Encounter - Charmaine Rios M.A. - 10/30/2020 12:55 PM EDT Patient is questioning how many cups of water she should have on a daily basis. Due to each pt's kidney disease I know this varies? Please advise? documented in this encounter Plan of Treatment Not on file documented as of this encounter Visit Diagnoses Not on filedocumented in this encounter Care Teams Computer Applications Engineer Relationship Specialty Start Date End Date Susan La MD PCP - General 09/08/00 01/20/22 Bridgett Schulz MD [address] [place] [address] PCP - General Internal Medicine 01/21/22 01/13/23 [facility], [facility], [address] [address] PCP - General Internal Medicine 01/14/23 documented as of this encounter
[2024-11-23 11:07] LABS: MANUAL DIFF FLAG NO
[2024-11-23 11:16] LABS: Basophils Absolute Auto 0.1 X10*3/uL (0.0-0.2); Basophils Percent Auto 0.8 % (0-2); Eosinophils Absolute Auto 0.1 X10*3/uL (0.0-0.4); Eosinophils Percent Auto 1.1 % (0-4); Hematocrit 39.6 % (37.0-47.0); Hemoglobin 12.6 g/dl (12.0-16.0); Imm Gran Abs Auto 0.03 X10*3/uL (0.00-0.03); Imm Gran Pct Auto 0.3 % (0.0-0.4); Lymphocytes Absolute Auto 2.6 X10*3/uL (1.2-4.9); Lymphocytes Percent Auto 29.4 % (20-40); Mean Corpuscular HGB Conc 31.8 g/dl (31.0-35.0); Mean Corpuscular Hemoglobin 28.6 pg (27.0-33.0); Mean Corpuscular Volume 89.8 fL (80.0-98.0); Mean Platelet Volume 10.1 fL (9.4-12.3); Monocytes Absolute Auto 0.8 X10*3/uL (0.1-1.2); Monocytes Percent Auto 8.6 % (2-11); Neutrophils Absolute Auto 5.4 x10*3/uL (2.0-8.3); Neutrophils Percent Auto 59.8 % (45-73); Platelet Count 400 X10*3/uL (160-400); Red Blood Count 4.41 X10*6/uL (4.20-5.50); Red Cell Distribution Width 14.7 % (11.0-16.0)
[2024-11-23 11:36] LABS: Alanine Aminotransferase 29 U/L (0-31); Albumin Level 4.3 g/dL (3.5-5.0); Alkaline Phosphatase 107 U/L (39-117); Anion Gap 11 (12-20); Aspartate Amino Transferase 34 U/L (5-31); Bilirubin Total 0.5 mg/dL (0.0-1.0); Blood Urea Nitrogen 14 mg/dL (9-16); C Reactive Protein 1.21 mg/dL (< or = 0.50); Calcium 9.5 mg/dL (8.4-10.2); Carbon Dioxide 28 mmol/L (22-29); Chloride 101 mmol/L (96-108); Estimated Glomerular Filt Rate 51; Glucose Random 71 mg/dL (60-115); Potassium 3.5 mmol/L (3.3-5.1); Sodium 136 mmol/L (135-145); Total Protein 7.5 g/dL (6.5-8.0)
[2024-11-23 11:50] LABS: HBc Num1 0.15 S/CO (0.00-0.79); HBsAGNum1 0.41 S/CO (0.00-0.99); Hepatitis A Antibody IgM 0.16 Index (0-0.79); Hepatitis B Core Antibody Nonreactive (Nonreactive); Hepatitis B Surface Antigen Negative (Negative); ~HepC Num1 0.15 S/CO (0.00-0.79); ~Hepatitis A Antibody IgM Nonreactive (Nonreactive); ~Hepatitis B Surface Antibody NONREACTIVE (Nonreactive); ~Hepatitis C Antibody Nonreactive (Nonreactive)
[2024-11-23 11:52] LABS: Erythrocyte Sedimentation Rate 25 MM/HR (0-20)
[2024-11-26 17:58] LABS: TS Negative Control Passed; TS Panel A 0; TS Panel B 0; TS Positive Control Passed; TSpotTB Negative (Negative)
== END 2024-11-23 08:32 | disposition home or self-care (01) ==
LOC: HO.HHCL 08:31
PROVIDERS: Visit Provider Student in an Organized Health Care Education/Training Program
DX: L40.50 Arthropathic psoriasis, unspecified (principal)
CPT/HCPCS: 36415; 80053; 85025; 85652; 86140; 86481; 86704; 86706; 86709; 86803; 87340

== ENCOUNTER 2024-12-04 07:53 | Outpatient (AMB) | payer OTHER, SELFPAY ==
--- OUTSIDE RECORDS SUMMARY | 2024-12-04 07:56 | XMS_ITS | Encounter Summary ---
Author Organization [facility] Address [address] [place] [address] Care Team Providers Care Clinical Informatics Educator Name Role Phone Bridgett Schulz MD Primary Care Prov ider [facility], Pcp Primary Care Provider [facility] Encounter Details Date Type Department Care Team Description 03/30/2022 Pt. Non Urgent Medical Question Nephrology - [address] [address] Gumaro Kc MD [address] [place] [address] Social History Tobacco Use Types Packs/Day Years [...] suspected to have Coronavirus/COVID-19? No / Unsure 04/02/2022 8:19 AM EDT documented as of this encounter Plan of Treatment Not on file documented as of this encounter Visit Diagnoses Not on filedocumented in this encounter Care Teams Clinical Informatics Educator Relationship Specialty Start Date End Date Bridgett Schulz MD [address] [place] [address] PCP - General Internal Medicine 01/21/22 01/13/23 [facility], Pcp [address] [place] [address] PCP - General Internal Medicine 01/14/23 documented as of this encounter
--- OUTSIDE RECORDS SUMMARY | 2024-12-04 07:56 | XMS_ITS | Encounter Summary ---
Author Organization [facility] Address [address] [place] [address] Care Team Providers Care Pin Machine Tender Name Role Phone Susan La MD Primary Care Provider Bridgett Zavala MD Primary Care Prov ider [facility], Pcp Primary Care Provider [facility] Encounter Details Date Type Department Care Team Description 05/18/2012 Walk In Clinic Visit Medical Records [address] [place] [address] Social History Tobacco Use Types Packs/Day Years [...] on filedocumented in this encounter Care Teams Pin Machine Tender Relationship Specialty Start Date End Date Susan La MD PCP - General 09/08/00 01/20/22 Bridgett Schulz MD [address] [place], [place] [phone] PCP - General Internal Medicine 01/21/22 01/13/23 [facility], [place] [address] PCP - General Internal Medicine 01/14/23 documented as of this encounter
--- OUTSIDE RECORDS SUMMARY | 2024-12-04 07:56 | XMS_ITS | Encounter Summary ---
Author Organization [facility] Address [facility] [place] [address] Care Team Providers Care Plastic Molder Name Role Phone Susan La MD Primary Care Provider Bridgett Zavala MD Primary Care Prov ider [facility], Pcp Primary Care Provider [facility] e Encounter Details Date Type Department Care Team Description 05/01/2020 Pt. Non Urgent Medic al Question Adult Medicine [address] [address] Susan La MD Social History Tobacco Use [...] on filedocumented in this encounter Care Teams Plastic Molder Relationship Specialty Start Date End Date Susan La MD PCP - General 09/08/00 01/20/22 Bridgett Schulz MD [address] [place] [address] PCP - General Internal Medicine 01/21/22 01/13/23 [facility], Pcp [address] [place] [address] PCP - General Internal Medicine 01/14/23 documented as of this encounter
--- OUTSIDE RECORDS SUMMARY | 2024-12-04 07:56 | XMS_ITS | Encounter Summary ---
Author Organization [facility] Address [address] [place] [address] Care Team Providers Care Carpenter Inspector Name Role Phone Bridgett Scuhlz MD Primary Care Prov ider [facility], Pcp Primary Care Provider Unavailabl e Encounter Details Date Type Department Care Team Description 12/20/2022 Refill Nephrology [facility] [address] [place] [address] Gumaro Kc MD [address] [place] [address] Social History Tobacco Use Types Packs/Day Years [...] as of this encounter Visit Diagnoses Diagnosis Stage 3a chronic kidney disease (HCC)- Primary documented in this encounter Care Teams Carpenter Inspector Relationship Specialty Start Date End Date Bridgett Schulz MD [address] [place] [address] PCP - General Internal Medicine 01/21/22 01/13/23 [facility], Pcp [address] [place] [address] PCP - General Internal Medicine 01/14/23 documented as of this encounter
--- OUTSIDE RECORDS SUMMARY | 2024-12-04 07:56 | XMS_ITS | Encounter Summary ---
Author Organization [facility] Address [address] [place] [address] Care Team Providers Care Fixed Route Bus Operator Name Role Phone Susan La MD Primary Care Provider Bridgett Zavala MD Primary Care Prov ider [facility], Pcp Primary Care Provider Unavailabl e Reason for Visit * Reason Onset Date Comments refill request 06/28/2017 Encounter Details Date Type Department Care Team Description 06/28/2017 Refill Nephrology - [address] [address] Gumaro Kc MD [address] [place] [address] refill request Social History Tobacco Use Types [...] NO Patients current insurance carrier is: Payor: [facility] / Plan: PPO $20 [place] [address] / Product Type: PPO [id number] documented in this encounter Plan of Treatment Not on file documented as of this encounter Visit Diagnoses Not on filedocumented in this encounter Care Teams Fixed Route Bus Operator Relationship Specialty Start Date End Date Susan La MD PCP - General 09/08/00 01/20/22 Bridgett Schulz MD [address] [place] [address] PCP - General Internal Medicine 01/21/22 01/13/[address] [address] PCP - General Internal Medicine 01/14/23 documented as of this encounter
--- OUTSIDE RECORDS SUMMARY | 2024-12-04 07:56 | XMS_ITS | Encounter Summary ---
Author Organization [facility] Address [address] [place] [address] Care Team Providers Care Services Tech Name Role Phone Susan La MD Primary Care Provider Bridgett Zavala MD Primary Care Prov ider [facility], Pcp Primary Care Provider [facility] Encounter Details Date Type Department Care Team Description 01/28/2012 Pt. Non Urgent Medic al Question Adult Medicine [address] [address] Susan La MD Social History Tobacco Use [...] one has send the refill [facility] to [facility]. Could you help me withthis? I am guessing Dr. Carmona is on vacation. Thank you. documented in this encounter Plan of Treatment Not on file documented as of this encounter Visit Diagnoses Not on filedocumented in this encounter Care Teams Services Tech Relationship Specialty Start Date End Date Susan La MD PCP - General 09/08/00 01/20/22 Bridgett Schulz MD [address] [place] [address] PCP - General Internal Medicine 01/21/22 01/13/[address] [address] PCP - General Internal Medicine 01/14/23 documented as of this encounter
--- OUTSIDE RECORDS SUMMARY | 2024-12-04 07:56 | XMS_ITS | Encounter Summary ---
Author Organization [facility] Address [address] [place] [address] Care Team Providers Care Business Segment Manager Name Role Phone Bridgett Schulz MD Primary Care Prov ider [facility], Pcp Primary Care Provider Unavailabl e Reason for Visit * Reason Comments E-prescribe Rx Request Encounter Details Date Type Department Care Team Description 05/29/2022 Refill Nephrology [facility] [address] [place] [address] Gumaro Kc MD [address] [place] [address] E-prescribe Rx Request Social History Tobacco Use [...] on filedocumented in this encounter Care Teams Business Segment Manager Relationship Specialty Start Date End Date Bridgett Schulz MD [address] [place] [address] PCP - General Internal Medicine 01/21/22 01/13/23 [facility], Pcp [address] [place] [address] PCP - General Internal Medicine 01/14/23 documented as of this encounter
--- OUTSIDE RECORDS SUMMARY | 2024-12-04 07:56 | XMS_ITS | Encounter Summary ---
Author Organization [facility] Address [facility] [place] [address] Care Team Providers Care Vertical Punch Operator Name Role Phone Susan La MD Primary Care Provider Bridgett Zavala MD Primary Care Prov ider [facility], Pcp Primary Care Provider [facility] Encounter Details Date Type Department Care Team Description 04/05/2017 Hospital Medical Records [address] [place] [address] Sara Vega III, MD Social History Tobacco Use Types Packs/Day [...] on filedocumented in this encounter Care Teams Vertical Punch Operator Relationship Specialty Start Date End Date Susan La MD PCP - General 09/08/00 01/20/22 Bridgett Schulz MD [address] [place] [address] PCP - General Internal Medicine 01/21/22 01/13/23 [facility], Pcp [address] [place], [place] [phone] PCP - General Internal Medicine 01/14/23 documented as of this encounter
--- OUTSIDE RECORDS SUMMARY | 2024-12-04 07:56 | XMS_ITS | Encounter Summary ---
Author Organization [facility] Address [address] [place] [address] Care Team Providers Care Papier Mache' Molder Name Role Phone Susan La MD Primary Care Provider Bridgett Zavala MD Primary Care Prov ider [facility], Pcp [facility] Encounter Details Date Type Department Care Team Description 10/15/2019 Orders [place] [address] Susan La MD Social History Tobacco Use [...] on filedocumented in this encounter Care Teams Papier Mache' Molder Relationship Specialty Start Date End Date Susan La MD PCP - General 09/08/00 01/20/22 Bridgett Schulz MD [address] [place], [place] [phone] PCP - General Internal Medicine 01/21/22 01/13/23 [facility], Pcp [address] [place], [place] [phone] PCP - General Internal Medicine 01/14/23 documented as of this encounter
--- OUTSIDE RECORDS SUMMARY | 2024-12-04 07:56 | XMS_ITS | Clinical Summary ---
Author Organization [facility] Address [address] [place] [phone] Phone Care Team Providers Care Attorney Lawyer Name Role Phone Susan La MD Primary Care Provider [phone] Allergies Active Allergy Reactions Criticality Noted Date [...] Office Visit [facility] [address] [address] Gumaro Kc MD Chronic kidney disease, stage 2 (mild) (Primary Dx); Type 2 diabetes mellitus with diabetic chronic kidney disease (HCC); Hypertension from Last 3 Months Immunizations Immunization Administration Dates Next Due Influenza (IM) Preservative Free 023,05/10/2016,05/10/2014,05/22,06/06/2012,03/24/2011,08/26/2010 ,04/18/2009 Influenza, Injectable, Madin [place] Canine Kidney, Preservative Free 04/05/2024 Influenza, MDCK, [...] Visit [facility] [address] [address] Gumaro Kc MD [address] [address] Health Maintenance Due Date Last Done Comments [...] patient's age to complete this topic Insurance [facility] Care Teams Attorney Lawyer Relationship Specialty Start Date End Date Susan La MD [address] [place] [address] PCP - General Internal Medicine 07/06/24
--- OUTSIDE RECORDS SUMMARY | 2024-12-04 07:56 | XMS_ITS | Encounter Summary ---
Author Organization [facility] Address [facility] [place] [address] Care Team Providers Care Vehicle Body Builder Name Role Phone Susan La MD Primary Care Provider Bridgett Zavala MD Primary Care Prov ider [facility], [facility]cp Primary Care Provider [facility] Encounter Details Date Type Department Care Team Description 06/14/2017 Railway Patrol Officer Report Medical Records [address] [place], [place] [phone] Jian Bhagat MD Social History Tobacco Use Types Packs/Day [...] on filedocumented in this encounter Care Teams Vehicle Body Builder Relationship Specialty Start Date End Date Susan La MD PCP - General 09/08/00 01/20/22 Bridgett Schulz MD [address] [place] [address] PCP - General Internal Medicine 01/21/22 01/13/23 [facility], Pcp [address] [place], [place] [phone] PCP - General Internal Medicine 01/14/23 documented as of this encounter
--- OUTSIDE RECORDS SUMMARY | 2024-12-04 07:56 | XMS_ITS | Encounter Summary ---
Author Organization [facility] Address [address] [place] [address] Care Team Providers Care Registered Travel Nurse Name Role Phone Bridgett Schulz MD Primary Care Prov ider [facility], Pcp Primary Care Provider Unavailabl e Reason for Visit * Reason Comments E-prescribe Rx Request Encounter Details Date Type Department Care Team Description 05/29/2022 Refill Nephrology [facility] [address] [place] [address] Gumaro Kc MD [address] [place] [address] E-prescribe Rx Request Social History Tobacco Use [...] on filedocumented in this encounter Care Teams Registered Travel Nurse Relationship Specialty Start Date End Date Bridgett Schulz MD [address] [place] [address] PCP - General Internal Medicine 01/21/22 01/13/23 [facility], Pcp [address] [place] [address] PCP - General Internal Medicine 01/14/23 documented as of this encounter
--- OUTSIDE RECORDS SUMMARY | 2024-12-04 07:56 | XMS_ITS | Encounter Summary ---
Author Organization [facility] Address [address] [place] [address] Care Team Providers Care Table Inspector Name Role Phone Bridgett Schulz MD Primary Care Prov ider [facility], Pcp Primary Care Provider Unavailabl e Encounter Details Date Type Department Care Team Description 12/17/2022 Refill Nephrology [facility] [address] [place] [address] Gumaro Kc MD [address] [place] [address] Social History Tobacco Use Types Packs/Day Years [...] on filedocumented in this encounter Care Teams Table Inspector Relationship Specialty Start Date End Date Bridgett Schulz MD [address] [place] [address] PCP - General Internal Medicine 01/21/22 01/13/23 [facility], Pcp [address] [place] [address] PCP - General Internal Medicine 01/14/23 documented as of this encounter
--- OUTSIDE RECORDS SUMMARY | 2024-12-04 07:56 | XMS_ITS | Encounter Summary ---
Author Organization [facility] Address [facility] [place] [address] Care Team Providers Care Data Control Clerk Name Role Phone Susan aL MD Primary Care Provider Bridgett Zavala MD Primary Care Prov ider [facility], Pcp Primary Care Provider Unavailabl e Reason for Visit * Reason Onset Date Comments Mychart Rx Refill 10/08/2019 Encounter Details Date Type Department Care Team Description 10/08/2019 Refill Adult Medicine [address] [address] Susan La MD Mychart Rx Refill Social [...] encounter Miscellaneous Notes * Telephone Encounter - Vickie Palafox M.A. - 10/09/2019 10:50 AM EDT JORGE 09/24/19 NOV 01/29/20 Lab Results Component Value Date NA 139 09/15/2019 K 4.6 09/15/2019 CO2 28 09/15/2019 CL 106 09/15/2019 BUN 14 09/15/2019 CREAT 0.98 09/15/2019 GLU 95 09/15/2019 CA 9.8 09/15/2019 GFR 58 09/15/2019 documented in this encounter Plan of Treatment Not on file documented as of this encounter Visit Diagnoses Not on filedocumented in this encounter Care Teams Data Control Clerk Relationship Specialty Start Date End Date Susan La MD PCP - General 09/08/00 01/20/22 Bridgett Schulz MD [address] [place] [address] PCP - General Internal Medicine 01/21/22 01/13/[address] [address] PCP - General Internal Medicine 01/14/23 documented as of this encounter
--- OUTSIDE RECORDS SUMMARY | 2024-12-04 07:56 | XMS_ITS | Encounter Summary ---
Author Organization [facility] Address [address] [place] [address] Care Team Providers Care Shuttle Truck Driver Name Role Phone Bridgett Schulz MD Primary Care Prov ider [facility], Pcp Primary Care Provider Unavailabl e Encounter Details Date Type Department Care Team Description 05/27/[address] [facility] [address] [place] [address] Gumaro Kc MD [address] [place] [address] Social History Tobacco Use Types Packs/Day Years [...] on filedocumented in this encounter Care Teams Shuttle Truck Driver Relationship Specialty Start Date End Date Bridgett Schulz MD [address] [place] [address] PCP - General Internal Medicine 01/21/22 01/13/23 [facility], Pcp [address] [place] [address] PCP - General Internal Medicine 01/14/23 documented as of this encounter
--- OUTSIDE RECORDS SUMMARY | 2024-12-04 07:56 | XMS_ITS | Encounter Summary ---
Author Organization [facility] Address [facility] [place] [address] Care Team Providers Care City Dispatch Supervisor Name Role Phone Susan La MD Primary Care Provider Bridgett Zavala MD Primary Care Prov ider [facility], Pcp Primary Care Provider [facility] Encounter Details Date Type Department Care Team Description 06/02/2018 Solid Glass Rod Dowel Machine Operator Report Medical Records [address] [place], [place] [phone] Masood Santiago MD Social History Tobacco Use [...] on filedocumented in this encounter Care Teams City Dispatch Supervisor Relationship Specialty Start Date End Date Susan La MD PCP - General 09/08/00 01/20/22 Bridgett Schulz MD [address] [place], [place] [phone] PCP - General Internal Medicine 01/21/22 01/13/23 [facility], Pcp [address] [place], [place] [phone] PCP - General Internal Medicine 01/14/23 documented as of this encounter
--- OUTSIDE RECORDS SUMMARY | 2024-12-04 07:56 | XMS_ITS | Encounter Summary ---
Author Organization [facility] Address [address] [place] [address] Care Team Providers Care Poke In Name Role Phone Susan La MD Primary Care Provider Bridgett Zavala MD Primary Care Prov ider [facility], Pcp Primary Care Provider [facility] Encounter Details Date Type Department Care Team Description 10/14/2011 Eye Progress Clerk Report Medical Records [address] [place] [address] Mega Gilbert MD Social History Tobacco Use [...] on filedocumented in this encounter Care Teams Poke In Relationship Specialty Start Date End Date Susan La MD PCP - General 09/08/00 01/20/22 Bridgett Schulz MD [address] [place] [address] PCP - General Internal Medicine 01/21/22 01/13/23 [facility], [address] [address] PCP - General Internal Medicine 01/14/23 documented as of this encounter
--- OUTSIDE RECORDS SUMMARY | 2024-12-04 07:56 | XMS_ITS | Encounter Summary ---
Author Organization [facility] Address [address] [place] [address] Care Team Providers Care Compliance Representative Dealer Name Role Phone Susan La MD Primary Care Provider Bridgett Zavala MD Primary Care Prov ider [facility], Pcp Primary Care Provider [facility] Encounter Details Date Type Department Care Team Description 05/06/2020 [facility] Medical Records [address] [place] [address] Abstract, Provider Social History Tobacco Use Types [...] have Coronavirus / COVID-19? No / Unsure 05/07/2020 2:11 PM EDT documented as of this encounter Plan of Treatment Not on file documented as of this encounter Visit Diagnoses Not on filedocumented in this encounter Care Teams Compliance Representative Dealer Relationship Specialty Start Date End Date Susan La MD PCP - General 09/08/00 01/20/22 Bridgett Schulz MD [address] [place], [place] [phone] PCP - General Internal Medicine 01/21/22 01/13/23 [facility], Pcp [address] [place] [address] PCP - General Internal Medicine 01/14/23 documented as of this encounter
--- OUTSIDE RECORDS SUMMARY | 2024-12-04 07:56 | XMS_ITS | Encounter Summary ---
Author Organization [facility] Address [address] [place] [address] Care Team Providers Care Manager Background Name Role Phone Bridgett Schulz MD Primary Care Prov ider [facility], Pcp Primary Care Provider Unavailabl e Encounter Details Date Type Department Care Team Description 2022 Refill Nephrology [facility] [address] [place] [address] Gumaro Kc MD [address] [place] [address] Social History Tobacco Use Types Packs/Day Years [...] on filedocumented in this encounter Care Teams Manager Background Relationship Specialty Start Date End Date Bridgett Schulz MD [address] [place] [phone] PCP - General Internal Medicine 01/21/22 01/13/23 [facility], Pcp [address] [place] [address] PCP - General Internal Medicine 01/14/23 documented as of this encounter
--- OUTSIDE RECORDS SUMMARY | 2024-12-04 07:56 | XMS_ITS | Encounter Summary ---
Author Organization [facility] Address [address] [place] [address] Care Team Providers Care Rnfa Name Role Phone Susan La MD Primary Care Provider Bridgett Zavala MD Primary Care Prov ider [facility], Pcp Primary Care Provider [facility] e Encounter Details Date Type Department Care Team Description 01/25/2012 [place] [address] Crispin Carmona MD Social History Tobacco Use [...] on filedocumented in this encounter Care Teams Rnfa Relationship Specialty Start Date End Date Susan La MD PCP - General 09/08/00 01/20/22 Bridgett Schulz MD [address] [place], [place] [phone] PCP - General Internal Medicine 01/21/22 01/13/23 [facility], Pcp [address] [place], [place] [phone] PCP - General Internal Medicine 01/14/23 documented as of this encounter
--- OUTSIDE RECORDS SUMMARY | 2024-12-04 07:56 | XMS_ITS | Encounter Summary ---
Author Organization [facility] Address [address] [place] [address] Care Team Providers Care Recycling Sorter Name Role Phone Bridgett Schulz MD Primary Care Prov ider [facility], Pcp Primary Care Provider Unavailabl e Encounter Details Date Type Department Care Team Description 05/28/2022 Refill Nephrology [facility] [address] [place] [address] Gumaro Kc MD [address] [place] [address] Social History Tobacco Use Types Packs/Day Years [...] on filedocumented in this encounter Care Teams Recycling Sorter Relationship Specialty Start Date End Date Bridgett Schulz MD [address] [place] [address] PCP - General Internal Medicine 01/21/22 01/13/23 [facility], Pcp [address] [place] [address] PCP - General Internal Medicine 01/14/23 documented as of this encounter
--- OUTSIDE RECORDS SUMMARY | 2024-12-04 07:56 | XMS_ITS | Encounter Summary ---
Author Organization [facility] Address [address] [place] [address] Care Team Providers Care Train Gateman Name Role Phone Susan La MD Primary Care Provider Bridgett Zavala MD Primary Care Prov ider [facility], Pcp Primary Care Provider [facility] Encounter Details Date Type Department Care Team Description 06/15/2012 Telephone Adult Medicine [address] [address] Susan La MD Social History Tobacco Use [...] on filedocumented in this encounter Care Teams Train Gateman Relationship Specialty Start Date End Date Susan La MD PCP - General 09/08/00 01/20/22 Bridgett Schulz MD [address] [place] [phone] PCP - General Internal Medicine 01/21/22 01/13/23 [facility], Pcp [address] [place], [place] [phone] PCP - General Internal Medicine 01/14/23 documented as of this encounter
--- OUTSIDE RECORDS SUMMARY | 2024-12-04 07:56 | XMS_ITS | Encounter Summary ---
Author Organization [facility] Address [address] [place] [address] Care Team Providers Care Cafe Attendant Name Role Phone Susan La MD Primary Care Provider Bridgett Zavala MD Primary Care Prov ider [facility], Pcp Primary Care Provider [facility] Encounter Details Date Type Department Care Team Description 02/20/2020 Pt. Non Urgent Medic al Question Adult Medicine [address] [address] Susan La MD Social History Tobacco Use [...] on filedocumented in this encounter Care Teams Cafe Attendant Relationship Specialty Start Date End Date Susan La MD PCP - General 09/08/00 01/20/22 Bridgett Schulz MD [address] [place] [address] PCP - General Internal Medicine 01/21/22 01/13/[address] [address] PCP - General Internal Medicine 01/14/23 documented as of this encounter
--- OUTSIDE RECORDS SUMMARY | 2024-12-04 07:56 | XMS_ITS | Encounter Summary ---
Author Organization [facility] Address [address] [place] [address] Care Team Providers Care Stain Sprayer Name Role Phone [facility], Pcp Primary Care Provider Unavailabl e Encounter Details Date Type Department Care Team Description 03/26/2024 Refill Nephrology - [place] [address] [place] [address] Darinel Kern MD [address] [place] [address] Social History Tobacco Use Types Packs/Day Years [...] on filedocumented in this encounter Care Teams Stain Sprayer Relationship Specialty Start Date End Date [facility], Pcp PCP - General Internal Medicine 01/14/23 documented as of this encounter
--- OUTSIDE RECORDS SUMMARY | 2024-12-04 07:56 | XMS_ITS | Encounter Summary ---
Author Organization [facility] Address [address] [place] [address] Care Team Providers Care Fabric Coating Supervisor Name Role Phone Bridgett Schulz MD Primary Care Prov ider [facility], Pcp Primary Care Provider Unavailabl e Reason for Visit * Reason Onset Date Comments Information Needed 01/07/2023 Encounter Details Date Type Department Care Team Description 01/07/2023 Telephone Adult Medicine [address] [address] Bridgett Schulz MD [address] [place] [address] Information Needed Social History Tobacco Use Types Packs/Day Years [...] encounter Miscellaneous Notes * Telephone Encounter - Bridgett Ureña MD - 01/07/2023 4:02 PM EDT Noted * Telephone Encounter - Maximino Cohn - 01/07/2023 2:17 PM EDT Information Needed Who is calling: Patient Information being requested? This is FYI, I called to schedule an appointment for patient in order to process a medication and patient informed me that she has left the practice. The medication was for Lovastatin 40MG tablets If other information is needed, was an JENNIFER signed? How is the information to be communicated back to the caller? documented in this encounter Plan of Treatment Not on file documented as of this encounter Visit Diagnoses Not on filedocumented in this encounter Care Teams Fabric Coating Supervisor Relationship Specialty Start Date End Date Bridgett Schulz MD [address] [place] [address] PCP - General Internal Medicine 01/21/22 01/13/23 [facility], [address] [address] PCP - General Internal Medicine 01/14/23 documented as of this encounter
--- OUTSIDE RECORDS SUMMARY | 2024-12-04 07:56 | XMS_ITS | Encounter Summary ---
Author Organization [facility] Address [address] [place] [address] Care Team Providers Care Health And Safety Tech Name Role Phone Susan La MD Primary Care Provider Bridgett Zavala MD Primary Care Prov ider [facility], Pcp Primary Care Provider [facility] Encounter Details Date Type Department Care Team Description 04/05/2017 Release of Information Medical Records [address] [place], [place] [phone] Abstract, Provider Social History Tobacco Use Types [...] filedocumented in this encounter Care Teams Health And Safety Tech Relationship Specialty Start Date End Date Susan La MD PCP - General 09/08/00 01/20/22 Bridgett Schulz MD [address] [place] [address] PCP - General Internal Medicine 01/21/22 01/13/23 [facility], [address] [address] PCP - General Internal Medicine 01/14/23 documented as of this encounter
--- OUTSIDE RECORDS SUMMARY | 2024-12-04 07:56 | XMS_ITS | Encounter Summary ---
Author Organization [facility] Address [address] [place] [address] Care Team Providers Care Manager Float Name Role Phone Susan La MD Primary Care Provider Bridgett Zavala MD Primary Care Prov ider [facility], Pcp Primary Care Provider [facility] Encounter Details Date Type Department Care Team Description 06/22/2012 Telephone Adult Medicine [address] [address] Susan La MD Social History Tobacco Use [...] filedocumented in this encounter Care Teams Manager Float Relationship Specialty Start Date End Date Susan La MD PCP - General 09/08/00 01/20/22 Bridgett Schulz MD [address] [place] [phone] PCP - General Internal Medicine 01/21/22 01/13/23 [facility], Pcp [address] [place], [place] [phone] PCP - General Internal Medicine 01/14/23 documented as of this encounter
--- OUTSIDE RECORDS SUMMARY | 2024-12-04 07:56 | XMS_ITS | Encounter Summary ---
Author Organization [facility] Address [address] [place] [address] Care Team Providers Care Dental Aide Name Role Phone Bridgett Schulz MD Primary [facility] Prov ider [facility]cp Primary Care Provider Unavailabl e Reason for Visit * Reason Comments E-prescribe Rx Request Encounter Details Date Type Department Care Team Description 05/29/2022 Refill Nephrology [facility] [address] [place] [address] Gumaro Kc MD [address] [place] [address] E-prescribe Rx Request Social History Tobacco Use [...] on filedocumented in this encounter Care Teams Dental Aide Relationship Specialty Start Date End Date Brigdett Schulz MD [address] [place] [address] PCP - General Internal Medicine 01/21/22 01/13/23 [facility], Pcp [address] [place] [address] PCP - General Internal Medicine 01/14/23 documented as of this encounter
--- OUTSIDE RECORDS SUMMARY | 2024-12-04 07:56 | XMS_ITS | Encounter Summary ---
Author Organization [facility] Address [address] [place] [address] Care Team Providers Care Underground Supervisor Name Role Phone Susan La MD Primary Care Provider Bridgett Zavaal MD Primary Care Prov ider [facility], Pcp Primary Care Provider [facility] Encounter Details Date Type Department Care Team Description 08/09/2019 Refill Adult Medicine [address] [address] Susan La MD Social History Tobacco Use [...] encounter Miscellaneous Notes * Telephone Encounter - Gómez Armenta M.A. - 08/10/2019 8:39 AM EST Faxed to pharmacy * Telephone Encounter - Vickie Palafox M.A. - 08/09/2019 2:36 PM EST Lab Results Component Value Date HGBA1C 6.2 01/12/2019 MALBUR 11.3 10/17/2018 MALBCR 11.4 10/17/2018 CHOL 160 09/20/2018 LDL 79 09/20/2018 HDL 54 09/20/2018 TRIG 137 09/20/2018 GLU 103 06/17/2019 CREAT 1.10 01/12/2019 JORGE 06/22/19 NOV 09/19/19 documented in this encounter Plan of Treatment Not on file documented as of this encounter Visit Diagnoses Not on filedocumented in this encounter Care Teams Underground Supervisor Relationship Specialty Start Date End Date Susan La MD PCP - General 09/08/00 01/20/22 Aquilino Ureña, Bridgett Jernigan MD [address] [place] [address] PCP - General Internal Medicine 01/21/22 01/13/23 [facility], [address] [address] PCP - General Internal Medicine 01/14/23 documented as of this encounter
--- OUTSIDE RECORDS SUMMARY | 2024-12-04 07:56 | XMS_ITS | Encounter Summary ---
Author Organization [facility] Address [address] [place] [address] Care Team Providers Care Objective C Developer Name Role Phone Susan La MD Primary Care Provider Bridgett Zavala MD Primary Care Prov ider [facility], Pcp Primary Care Provider Unavailabl e Reason for Visit * Reason Comments E-prescribe Rx Request Encounter Details Date Type Department Care Team Description 05/09/2019 Refill Adult Medicine [address] [address] Susan La MD E-prescribe Rx Request Social [...] Telephone Encounter - Viviane Turner M.A. - 05/10/2019 6:56 AM EDT Lab Results Component Value Date CHOL 160 09/20/2018 LDL 79 09/20/2018 HDL 54 09/20/2018 TRIG 137 09/20/2018 SGOT 21 01/12/2019 SGPT 27 01/12/2019 Last ov with pcp 01/15/19 * Telephone Encounter - Marizol Rascon - 05/09/2019 4:46 PM EDT Patient would like script to be: E-PRESCRIBED/FAXED TO PHARMACY WHEN WAS THE PATIENT'S LAST APPOINTMENT IN ADULT MEDICINE? 02-13-19 WHEN WAS THE LAST TIME THE PATIENT SAW THEIR PCP? 01-15-19 Does patient have an upcoming appointment? Yes 05-21-19 (THE MEDICATION REQUESTED IS ON THE MED LIST ABOVE) One or some of the medications requested were on the HISTORICAL MED list Did you check the Pharmacy information above?: YES Patient wants: 90 -day supply Is this a mail order prescription request ? NO If the refill is from a FAXED refill request what is the RX # listed on the fax? N/A Patients current insurance carrier is: Payor: [facility] / Plan: O $20 [id number] / Product Type: PPO [id number] documented in this encounter Plan of Treatment Not on file documented as of this encounter Visit Diagnoses Not on filedocumented in this encounter Care Teams Objective C Developer Relationship Specialty Start Date End Date Susan La MD PCP - General 09/08/00 01/20/22 Bridgett Schulz MD [address] [place] [address] PCP - General Internal Medicine 01/21/22 01/13/23 [place] [address] PCP - General Internal Medicine 01/14/23 documented as of this encounter
--- OUTSIDE RECORDS SUMMARY | 2024-12-04 07:56 | XMS_ITS | Encounter Summary ---
Author Organization [facility] Address [address] [place] [address] Care Team Providers Care Preparation Center Coordinator Name Role Phone Susan La MD Primary Care Provider Bridgett Zavala MD Primary Care Prov ider [facility], Pcp Primary Care Provider [facility] e Encounter Details Date Type Department Care Team Description 03/05/2013 [place] [address] Crispin Carmona MD Social History Tobacco Use [...] on filedocumented in this encounter Care Teams Preparation Center Coordinator Relationship Specialty Start Date End Date Susan La MD PCP - General 09/08/00 01/20/22 Bridgett Schulz MD [address] [place], [place] [phone] PCP - General Internal Medicine 01/21/22 01/13/23 [facility], Pcp [address] [place], [place] [phone] PCP - General Internal Medicine 01/14/23 documented as of this encounter
--- OUTSIDE RECORDS SUMMARY | 2024-12-04 07:56 | XMS_ITS | Encounter Summary ---
Author Organization [facility] Address [address] [place] [address] Care Team Providers Care Grocery Store Bagger Name Role Phone Susan La MD Primary Care Provider Bridgett Zavala MD Primary Care Prov ider [facility], Pcp Primary Care Provider Unavailabl e Reason for Visit * Reason Comments E-prescribe Rx Request Encounter Details Date Type Department Care Team Description 04/26/2017 Refill Adult Medicine [address] [address] Susan La MD E-prescribe Rx Request Social [...] encounter Miscellaneous Notes * Telephone Encounter - Lizeth Alba M.A. - 04/27/2017 9:25 AM EDT Faxed to pharmacy * Telephone Encounter - Tanya Gardner M.A. - 04/27/2017 9:20 AM EDT Lab Results Component Value Date HGBA1C 5.3 01/19/2017 MALBUR 0.4 01/19/2017 MALBCR 2.1 01/19/2017 CHOL 224 09/15/2016 LDL 131 09/15/2016 HDL 63 09/15/2016 TRIG 154 09/15/2016 GLU 89 03/30/2017 CREAT 1.2 03/30/2017 * Telephone Encounter - Emilee Niru - 04/27/2017 9:02 AM EDT Patient would like script to be: E-PRESCRIBED/FAXED TO PHARMACY WHEN WAS THE PATIENT'S LAST APPOINTMENT IN ADULT MEDICINE? 01/21/17 WHEN WAS THE LAST TIME THE PATIENT SAW THEIR PCP? Same as above Does patient have an upcoming appointment? Yes 05/24/17 (THE MEDICATION REQUESTED IS ON THE MED LIST ABOVE) All of the medications requested were on the CURRENT MEDS list Did you check the Pharmacy information above?: YES Patient wants: 90 -day supply Is this a mail order prescription request ? NO Patients current insurance carrier is: Payor: [facility] / Plan: O $20 [place] [id number] / Product Type: PPO [id number] documented in this encounter Plan of Treatment Not on file documented as of this encounter Visit Diagnoses Not on filedocumented in this encounter Care Teams Grocery Store Bagger Relationship Specialty Start Date End Date Susan La MD PCP - General 09/08/00 01/20/22 Aquilino Ureña, Bridgett Jernigan MD [address] [place] [address] PCP - General Internal Medicine 01/21/22 01/13/23 [facility], Pcp [address] [place] [address] PCP - General Internal Medicine 01/14/23 documented as of this encounter
--- NOTE | 2024-12-04 07:57 | A.OFFVIS_ITS ---
Vital Signs 12/04/24 08:01 Height 5 ft 7 in Weight 211 lb 13.828 oz BMI 33.2 BP 124/80 Blood Pressure Location Lt brachial Position Sitting Pulse 79 Pulse Source Pulse Oximeter Pulse Oximetry (%) 99 Oxygen Delivery Method Room Air Intake Visit Reasons: PsA Intake Note: Patient presents for PsA follow up. Allergies nystatin Allergy (Severe, Verified 12/04/24 07:59) Anaphylaxis latex Adverse Reaction (Unknown, Verified 12/04/24 07:59) Rash tetracycline Adverse Reaction (Unknown, Verified 12/04/24 07:59) Rash Medication List - Last Reconciled 12/04/24 by Arti Hairston MD albuterol sulfate 90 mcg/actuation inhalation bupropion HCl SR 150 mg PO QAM calcitriol mcg PO empagliflozin (Jardiance) 10 mg PO DAILY fluoxetine 40 mg PO DAILY gabapentin 600 mg PO BID leucovorin calcium 10 mg PO QWEEK losartan 25 mg PO DAILY losartan 100 mg PO DAILY lovastatin 40 mg PO DAILY metformin ER 500 mg PO DAILY methotrexate sodium 15 mg (6 x 2.5 mg) PO QWEEK ondansetron 4 mg PO Q8H PRN spironolacton-hydrochlorothiaz 25-25 mg tabs PO tizanidine 2 mg PO BEDTIME HPI Comments Details: Patient is a 64-year-old female with depression, diabetes complicated by CKD stage 3, hypertension, hyperlipidemia and psoriatic arthritis here today for follow up Interval History: Patient last seen 07/25/[address] Tolentino. At that time she was following up for her psoriatic arthritis. She was doing well without any joint pain or swelling or skin rashes at that visit. Compliant with her methotrexate. Continued to have intermittent mouth ulcers. Because of the intermittent mouth ulcers her folic acid was discontinued and she was started on leucovorin 10 mg once a week. Patient states that she got worse pain when she took the leucovorin. She would take it the day after the methotrexate. Patient self discontinued the leucovorin and did not restart the methotrexate. Despite stopping the leucovorin she continued to have pain involving the wrists, hands, and shoulders No PsO Rheumatologic History: Psoriatic arthritis dx 01/2024 MTX 01/2024 effective Initial history: This is a 63-year-old female who presents for evaluation of multiple joint pain and swelling. Patient states that she was diagnosed with fibromyalgia about 4 years ago. She was started on gabapentin at that time. She stated that back in August of 2023 she developed some redness of her eyes, she went to the eye doctor and was told that she has an infection. Afterwards she started developing multiple joint pain and swelling including her hands, wrists, ankles, knees. She went to the emergency room once and was given steroids with improvement. Since then she has been having intermittent episodes of joint pain and swelling affecting different joints. She has morning stiffness lasting 20-30 minutes. She takes Tylenol as needed but does not take any NSAIDs due to her history of CKD. She states that she was diagnosed with psoriasis 2-3 years ago based on nail psoriasis. States that she was evaluated by a carport erector and she had a nail biopsy. Father had psoriasis, she has a niece with psoriatic arthritis Patient denies any history of DVT/PE. She had 2 pregnancies, 1 live and 1 . Current Rheumatology Medication(s): Leucovorin 10mg once a week (not taking) Methotrexate 15mg weekly [facility] Medical History (Updated 12/04/24 @ 08:37 by Arti Hairston MD) Polyarthralgia NICHOLAS (obstructive sleep apnea) Obese Major depression Hyperlipidemia, unspecified IBS (irritable bowel syndrome) HTN (hypertension) Gastric acid decreased Fibromyalgia Endometrial hyperplasia CKD stage 3 due to type 2 diabetes mellitus Cholecystitis Cervical radiculopathy due to degenerative joint disease of spine CTS (carpal tunnel syndrome) Asthma Surgical History History of gastric surgery Previous section History of cholecystectomy Family History Mother Colon cancer Father Psoriasis Other Autoimmune disease Social History Alcohol intake: current Alcohol intake frequency: does not drink Patient Tobacco Use Status: Never used Tobacco Current occupational status: employed Current occupation: psychotherapist Review of Systems Const Details: Review of Systems Constitutional: Denies fever, chills, weight loss ENT: Denies vision changes, eye pain or eye redness, dental caries, dry mouth GI: Denies nausea, vomiting, diarrhea, abdominal pain, change in BM Pulm: Denies SOB, TANNER, hemoptysis, wheezing Cards: Denies chest pain, palpitations Skin: Denies Raynaud's, rash, nail changes, photosensitivity, JEWELRY SORTER: Denies headaches, weakness, paresthesias, recurrent falls MSK: as per HPI All other systems reviewed and are unremarkable except noted above Physical Exam Vital Signs: Last Vital Signs Pulse 79 12/04/24 08:01 BP 124/80 12/04/24 08:01 Pulse Ox 99 12/04/24 08:01 Oxygen Delivery Method Room Air 12/04/24 08:01 BMI result Body Mass Index 33.2 Vital signs reviewed Physical Examination CONSTITUITIONAL Patient alert and cooperative. Well appearing and in no apparent painful distress HEENT Conjunctiva and sclera clear. ?Pupils equal round and reactive to light. ?No lymphadenopathy. ? CHEST/RESPIRATORY SYSTEM Normal respiratory effort and able to speak in complete sentences. ?Clear to auscultation bilaterally. ?No crackles, rales, rhonchi, wheezes heard. CARDIAC SYSTEM Regular rate and rhythm. ?S1 and S2 heard no murmurs. ?Radial pulses intact bilaterally MSK Hands: ?Able to make a fist. Right hand - TTP of the MCPs 2-4, PIPs 2-4. No swelling Left hand - TTP of 2nd and 3rd PIP. No swelling Wrists: ?Full range of motion bilaterally. Mild swelling to the right wrist with TTP. No TTP of the left wrist Elbows: Full range of motion bilaterally. Mild TTP bilaterally without weakness, swelling, increased warmth or erythema. Shoulders: Full range of active range of motion without pain. No tenderness, weakness, swelling, increased warmth or erythema. Hip bursa: TTP of right hip bursa Knees: ?Full range of motion. ?No tenderness, swelling, increased warmth or erythema.?No effusion or crepitations Ankles: Full range of motion. ?No tenderness, swelling, increased warmth or erythema.? Feet: ?Positive squeeze test on the left foot. Tender points:?No tenderness to palpation of the bilateral trapezius, supraspinatus, greater trochanters, anterior costochondral junctions, bilateral gluteal areas, bilateral suboccipital muscle insertions SKIN Skin intact without rashes. Results Reviewed Results Reviewed: Laboratory Tests 11/23/24 08:33 WBC 9.0 RBC 4.41 Hgb 12.6 Hct 39.6 Plt Count 400 ESR 25 H Sodium 136 Potassium 3.5 Chloride 101 Carbon Dioxide 28 BUN 14 Creatinine 1.08 Estimated GFR 51 AST 34 H ALT 29 C-Reactive Protein 1.21 H Assessment & Plan Assessment & Plan (1) Psoriatic arthritis: Comment: dx 01/2024 MTX 01/2024 effective Code(s): L40.50 - Arthropathic psoriasis, unspecified Category: Medical Plan: #PsA Patient is a 64-year-old female with psoriatic arthritis here today for follow up. Currently not in remission with moderate activity of her PsA. We will add Enbrel. Note is made of the mild elevation to AST. This is new and has not been elevated in the past. This may be related to do the methotrexate and the lack of folic acid. Add folic acid 3mg given her history of oral ulcers Plan - Methotrexate 15mg weekly - Folic acid 3mg daily except methotrexate days - Stop lecovorin - Start Enbrel 50mg SC - RTC 4 months - Labs before visit: CBC, CMP, ESR, CRP (2) Fibromyalgia: Code(s): M79.7 - Fibromyalgia Category: Medical Plan: #Fibromylagia Currently on gabapentin Prescribed by her primary but the primary does not want to continue the prescription Plan - Gabapentin 300mg qid (3) assisted methotrexate user: Code(s): Z79.631 - assisted (current) use of antimetabolite agent Category: Medical Plan: #Long-term Current Use of Methotrexate Discussed with patient the benefits and risks of methotrexate for managing their rheumatic condition Benefits include reduced pain, reduced mortality, maintenance of remission and reduction of flares Risks include oral ulcers, photosensitivity, hepatotoxicity, hematologic [place], pneumonitis, flu-like symptoms (especially day after administration), nodulosis, lymphomas ? Limit alcohol and avoid Bactrim ? Monitoring: ?CBC, BMP, LFTs every 3-4 months and hepatitis serologies as needed Plan I spent 40 minutes reviewing the record and labs, taking a history, examining the patient, discussing the treatment plan, ordering diagnostic work up, clinical time for PA and documenting in the medical record Orders: Orders Comprehensive Met. Panel 4 Months L40.50 - Arthropathic psoriasis, unspecified C Reactive Protein 4 Months L40.50 - Arthropathic psoriasis, unspecified Erythrocyte Sedimentation Rate 4 Months L40.50 - Arthropathic psoriasis, unspecified Complete Blood Count Auto Diff 4 Months L40.50 - Arthropathic psoriasis, unsp ecified Medications: New gabapentin 300 mg PO QID 90 days 360 caps 1RF M79.7 - Fibromyalgia folic acid Take every day except the day you take methotrexate 3 mg (3 x 1 mg) PO DAILY 90 days 270 tabs 1RF L40.50 - Arthropathic psoriasis, unspecified etanercept (Enbrel SureClick) 50 mg subcut QWEEK 4 mL 5RF L40.50 - Arthropathic psoriasis, unspecified Changed From methotrexate sodium 15 mg (6 x 2.5 mg) PO QWEEK 24 tabs 0RF L40.50 - Arthropathic psoriasis, unspecified To methotrexate sodium 15 mg (6 x 2.5 mg) PO QWEEK 90 days 78 tabs 1RF L40.50 - Arthropathic psoriasis, unspecified Discontinued leucovorin calcium take 1 tab the day after you take Methotrexate Discontinued Reason: Doctor's Order 10 mg PO QWEEK 12 tabs 0RF Coding Level of Care Code Est Pt Level 5 (79903) Complex EM visit Add On G2211 Diagnoses Psoriatic arthritis L40.50 Fibromyalgia M79.7 assisted methotrexate user Z79.631
--- OUTSIDE RECORDS SUMMARY | 2024-12-04 07:57 | XMS_ITS | Encounter Summary ---
Author Organization [facility] Address [address] [place] [address] Care Team Providers Care Dental Technology Advisor Name Role Phone Susan La MD Primary Care Provider Bridgett Zavala MD Primary Care Prov ider [facility], Pcp Primary Care Provider Unavailabl e Reason for Visit * Reason Comments E-prescribe Rx Request Encounter Details Date Type Department Care Team Description 08/12/2018 Refill Adult Medicine [address] [address] Madai Pastor APRN E-prescribe Rx Request Social History Tobacco Use [...] Telephone Encounter - Lizeth Alba M.A. - 08/14/2018 2:43 PM EST Lab Results Component Value Date CHOL 195 01/21/2018 LDL 99 01/21/2018 HDL 67 01/21/2018 TRIG 148 01/21/2018 * Telephone Encounter - Jo Mark - 08/14/2018 8:50 AM EST Patient would like script to be: E-PRESCRIBED/FAXED TO PHARMACY WHEN WAS THE PATIENT'S LAST APPOINTMENT IN ADULT MEDICINE? 05/26/18 WHEN WAS THE LAST TIME THE PATIENT SAW THEIR PCP? Same as above Does patient have an upcoming appointment? Yes 09/20/17 (THE MEDICATION REQUESTED IS ON THE MED [...] N/A Patients current insurance carrier is: Payor: [facility] / Plan: PPO $20 [place] [id number] / Product Type: PPO [id number] documented in this encounter Plan of Treatment Not on file documented as of this encounter Visit Diagnoses Not on filedocumented in this encounter Care Teams Dental Technology Advisor Relationship Specialty Start Date End Date Susan La MD PCP - General 09/08/00 01/20/22 Bridgett Schulz MD [address] [place] [address] PCP - General Internal Medicine 01/21/22 01/13/23 [facility] [address] [place] [address] PCP - General Internal Medicine 01/14/23 documented as of this encounter
--- OUTSIDE RECORDS SUMMARY | 2024-12-04 07:57 | XMS_ITS | Clinical Summary ---
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 Microalbuminuria 05/21/2013 Overview (07/21/2024): Microalbumin was 120 on 12/20/2012. Nuclear sclerosis 05/21/2013 Overview (07/21/2024): NS bilat--taken from note of Dr. Yoon on 11/28/2012. Type 2 diabetes mellitus wit h cataract ([facility] V24, [facility] V28) 05/21/2013 Glaucoma 06/26/2011 Carpal tunnel syndrome, bilateral 12/08/2010 Cervical spondylosis with radiculopathy 12/09/19 11 Cervical stenosis of spinal canal 12/08/2010 Degenerative disc disease, cervical 12/08/2010 Herniated cervical disc 12/08/2010 Diabetes mellitus with renal complications ([facility] V24, [facility] V28) 08/26/2010 Hyperlipidemia with target LDL less than 100 05/2010 Overview (07/21/2024): [facility] update Major depressive disorder, r ecurrent episode, moderate ([facility] V24, [facility] V28) 07/16/2009 Sleep apnea 09/16/2006 Overview (07/21/2024): [...] Surgery Date Site/Laterality Comments COLONOSCOPY 12/20/2001 PROCEDURE: DE COLONOSCOPY STOMA DX INCLUDING COLLJ SPEC SPX; COMMENT: negative to 80 cm CERVICAL BIOPSY W/ LOOP ELEC TRODE EXCISION PROCEDURE: DE CONIZATION CERVIX W/WO D&C RPR ELTRD EXC OTHER SURGICAL HISTORY PROCEDURE: LAPAROSCOPY PROCEDURE NEC; COMMENT: pt. reports endometriosis ([place]) SECTION PROCEDURE: HISTORICAL DELIVERY; COMMENT: Breech ESOPHAGOGASTRODUODENOSCOPY 07/12/2007 PROCEDURE: DE EGD TRANSORAL BIOPSY SINGLE/MULTIPLE; COMMENT: Erosive gastritis-bx:Normal, Duodenitis, SB bx:Normal COLONOSCOPY 11/02/2007 PROCEDURE: DE COLONOSCOPY STOMA DX INCLUDING COLLJ SPEC SPX; [...] kidney disease) stage 3, GFR 30-59 ml/min ([facility] V24, [facility] V28) 05/21/2013 DX:CKD (chronic kidney disea se) stage 3, GFR 30-59 ml/min ([facility]) Diabetes mellitus with renal complications ([facility] V24, [facility] V28) 08/26/2010 DX:Diabetes mellitus with re nal complications ([facility]) Degenerative disc disease, cervical 12/08/2010 DX:Degenerative disc disease, cervical Asthma 04/10/2014 DX:Asthma Asthma 04/10/2014 DX:Asthma Personal history of colonic polyps 06/08/2021 DX:Personal history of colonic polyps; COMMENT: Adenomatous polyp of the descending colon found at colonoscopy on 01/27/2021. Repeat colonoscopy in 5 years. Type 2 diabetes mellitus wit h cataract ([facility] V24, [facility] V28) 05/21/2013 DX:Type 2 diabetes mellitus with cataract ([facility]) Family History Medical History Relation Name Comments [...] Signed Date: 06/30/2024 16:20 ET Workstation ID: [id number] Transcribed By: Self Edit Transcribed Date: 06/30/2024 [...] [place] Reviewed and Electronically Signed By: Josefina Hnacock Signed Date: 06/30/2024 16:20 ET Workstation ID: [id number] Transcribed By: Self Edit Transcribed Date: 06/30/2024 16:16 ET Result [facility] Bridgett Boo MD IMG BI PROCEDURES Final Result * Urine Albumin Creatinine Ratio (08/17/2023) Pathologist [facility] Urine Albumin Creatinine Ratio ABSTRACTED Result [facility] HEALTH MAINTENANCE Final Result * Annual BMP Blood Test (11/16/2022) Pathologist [facility] Annual BMP Blood Test ABSTRACTED Result [facility] HEALTH [facility] Final Result * Hemoglobin A1c (11/16/2022) Pathologist [facility] Hemoglobin A1C 6.2 <=6.5 % Blood Venous blood specimen / Unknown Result [facility] LAB BLOOD ORDERABLES Sonja l Result * (ABNORMAL) Lipid panel (11/16/2022) LDL/HDL Ratio 3 0 - 4 Triglycerides 168(A) 0 - 150 mg/dL Cholesterol 158 0 - 200 mg/dL HDL 58 >=40 mg/dL LDL Cholesterol 67 0 - 100 mg/dL Blood Venous blood specimen / Unknown Result [facility] Provider LAB BLOOD ORDERABLES Sonja l Result * Cervical Cancer Screening: HPV (04/02/2022) [facility] Cervical Cancer Screening: HPV NEGATIVE, ABSTRACTED Historical Provider HEALTH MAINTENANCE Final Result * Colonoscopy (01/27/2021) [facility] Colonoscopy NO INTERPRETATION , ABSTRACTED Anatomical Region Laterality Modality Other [facility] Provider HEALTH MAINTENANCE Final Result * Hepatitis C Screening (03/28/2002) [facility] Hepatitis C Screening ABSTRACTED Historical Provider HEALTH MAINTENANCE Final Result from Last 3 Months or Most Recently Relevant to Health Maintenance Insurance [place] [address] Care Teams Guide Escort Relationship Specialty Start Date End Date Bridgett Boo MD PCP - General Internal Medicine 01/21/22
--- OUTSIDE RECORDS SUMMARY | 2024-12-04 07:57 | XMS_ITS | Encounter Summary ---
Author Organization [facility] Address [facility] [place] [address] Care Team Providers Care Director Digital Analytics Name Role Phone Susan La MD Primary Care Provider Bridgett Zavala MD Primary Care Prov ider [facility], Pcp Primary [facility] Reason for Visit * Reason Onset Date Comments APPOINTMENT 08/24/2021 Encounter Details Date Type Department Care Team Description 08/24/2021 Telephone Adult Medicine [address] [address] Susan La MD APPOINTMENT Social History Tobacco Use Types Packs/Day Years [...] encounter Miscellaneous Notes * Telephone Encounter - Florinda Casanova M.A. - 08/24/2021 8:34 AM EST Pt sent MyChart msg asking to be seen by OBGYN provider - will route to pool so that they may reachout to pt. documented in this encounter Plan of Treatment Not on file documented as of this encounter Visit Diagnoses Not on filedocumented in this encounter Care Teams Director Digital Analytics Relationship Specialty Start Date End Date Susan La MD PCP - General 09/08/00 01/20/22 Bridgett Schulz MD [address] [place] [address] PCP - General Internal Medicine 01/21/22 01/13/[address] [address] PCP - General Internal Medicine 01/14/23 documented as of this encounter
--- OUTSIDE RECORDS SUMMARY | 2024-12-04 07:57 | XMS_ITS | Encounter Summary ---
Author Organization [facility] Address [facility] [place] [address] Care Team Providers Care Service Administrator Name Role Phone Susan La MD Primary Care Provider Bridgett Zavala MD Primary Care Prov ider [facility], Pcp Primary Care [facility] e Encounter Details Date Type Department Care Team Description 08/31/2021 Refill Adult Medicine [address] [address] Susan La MD Social History Tobacco Use [...] on filedocumented in this encounter Care Teams Service Administrator Relationship Specialty Start Date End Date Susan La MD PCP - General 09/08/00 01/20/22 Bridgett Schulz MD [address] [place] [address] PCP - General Internal Medicine 01/21/22 01/13/23 [facility], Pcp [address] [place] [address] [place] [address] PCP - General Internal Medicine 01/14/23 documented as of this encounter
--- OUTSIDE RECORDS SUMMARY | 2024-12-04 07:57 | XMS_ITS | Encounter Summary ---
Author Organization [facility] Address [facility] [place] [address] Care Team Providers Care Director Of Nurses Registry Name Role Phone Susan La MD Primary Care Provider Bridgett Zavala MD Primary Care Prov ider [facility], Pcp Primary Care Provider Unavailabl e Reason for Visit * Reason Onset Date Comments LAB WORK 02/06/2021 Encounter Details Date Type Department Care Team Description 02/06/2021 Telephone General Surgery - [place] [address] [facility] [address] [place] [phone] Gloria Vargas, ,RDN,LDN [address] [facility] [address] [place] [phone] LAB WORK Social History Tobacco Use [...] filedocumented in this encounter Care Teams Director Of Nurses Registry Relationship Specialty Start Date End Date Susan La MD PCP - General 09/08/00 01/20/22 Bridgett Schulz MD [address] [place] [address] PCP - General Internal Medicine 01/21/22 01/13/23 [facility], [address] [address] PCP - General Internal Medicine 01/14/23 documented as of this encounter
--- OUTSIDE RECORDS SUMMARY | 2024-12-04 07:57 | XMS_ITS | Encounter Summary ---
Author Organization [facility] Address [address] [place] [address] Care Team Providers Care Electrical Controls Assembler Name Role Phone Susan La MD Primary Care Provider Bridgett Zavala MD Primary Care Prov ider [facility], Pcp Primary Care Provider Unavailabl e Reason for Visit * Reason Comments E-prescribe Rx Request Encounter Details Date Type Department Care Team Description 03/09/2019 Refill Nephrology - [address] [address] Susan La MD E-prescribe Rx Request Social [...] encounter Miscellaneous Notes * Telephone Encounter - Tanya Gardner M.A. - 03/09/2019 11:49 AM EDT Lab Results Component Value Date CHOL 160 09/20/2018 LDL 79 09/20/2018 HDL 54 09/20/2018 TRIG 137 09/20/2018 SGOT 21 01/12/2019 SGPT 27 01/12/2019 * Telephone Encounter - Ana Moreno - 03/09/2019 10:32 AM EDT Patient would like script to be: E-PRESCRIBED/FAXED TO PHARMACY WHEN WAS THE PATIENT'S LAST APPOINTMENT IN ADULT MEDICINE? WHEN WAS THE LAST TIME THE PATIENT SAW THEIR PCP? Same as above Does patient have an upcoming appointment? Yes 05/21/19 (THE MEDICATION REQUESTED IS ON THE MED [...] N/A Patients current insurance carrier is: Payor: [facility] / Plan: PPO $20 [place] [id number] / Product Type: PPO [id number] documented in this encounter Plan of Treatment Not on file documented as of this encounter Visit Diagnoses Not on filedocumented in this encounter Care Teams Electrical Controls Assembler Relationship Specialty Start Date End Date Susan La MD PCP - General 09/08/00 01/20/22 Bridgett Schulz MD [address] [place] [address] PCP - General Internal Medicine 01/21/22 [facility]13[facility] [address] [place] [address] PCP - General Internal Medicine 01/14/23 documented as of this encounter
--- OUTSIDE RECORDS SUMMARY | 2024-12-04 07:57 | XMS_ITS | Encounter Summary ---
Author Organization [facility] Address [address] [place] [address] Care Team Providers Care Rcp Name Role Phone Susan La MD Primary Care Provider Bridgett Zavala MD Primary Care Prov ider [facility], Pcp Primary Care Provider [facility] Encounter Details Date Type Department Care Team Description 06/09/2021 [place] [address] Gumaro Kc MD [address] [place] [address] Social History Tobacco Use Types Packs/Day Years [...] on filedocumented in this encounter Care Teams Rcp Relationship Specialty Start Date End Date Susan La MD PCP - General 09/08/00 01/20/22 Bridgett Schuzl MD [address] [place] [address] PCP - General Internal Medicine 01/21/22 01/13/23 [facility], Pcp [address] [place] [address] PCP - General Internal Medicine 01/14/23 documented as of this encounter
--- OUTSIDE RECORDS SUMMARY | 2024-12-04 07:57 | XMS_ITS | Encounter Summary ---
Author Organization [facility] Address [address] [place] [address] Care Team Providers Care Eye Glass Frame Polisher Name Role Phone Susan La MD Primary Care Provider Bridgett Zavala MD Primary Care Prov ider [facility], Pcp Primary Care Provider [facility] e Reason for Visit * Reason Onset Date Comments Faxed Refill 09/16/2018 Encounter Details Date Type Department Care Team Description 09/16/2018 Refill Nephrology - [address] [address] Gumaro Kc MD [address] [place] [address] Faxed Refill Social History Tobacco Use Types [...] on filedocumented in this encounter Care Teams Eye Glass Frame Polisher Relationship Specialty Start Date End Date Susan La MD PCP - General 09/08/00 01/20/22 Bridgett Schulz MD [address] [place] [address] PCP - General Internal Medicine 01/21/22 01/13/23 [facility], Pcp [address] [place] [address] PCP - General Internal Medicine 01/14/23 documented as of this encounter
--- OUTSIDE RECORDS SUMMARY | 2024-12-04 07:57 | XMS_ITS | Encounter Summary ---
Author Organization [facility] Address [facility] [place] [address] Care Team Providers Care Recording Clerk Name Role Phone Susan La MD Primary Care Provider Bridgett Zavala MD Primary Care Prov ider [facility], Pcp Primary Care Provider [facility] Encounter Details Date Type Department Care Team Description 11/16/2021 Pt. Non Urgent Medical Question Nephrology - [place] [address] [place] [address] Gumaro Kc MD [address] [place] [address] Social History Tobacco Use Types Packs/Day Years [...] on filedocumented in this encounter Care Teams Recording Clerk Relationship Specialty Start Date End Date Susan La MD PCP - General 09/08/00 01/20/22 Bridgett Schulz MD [address] [place] [phone] PCP - General Internal Medicine 01/21/22 01/13/23 [facility], Pcp [address] [place] [address] PCP - General Internal Medicine 01/14/23 documented as of this encounter
--- OUTSIDE RECORDS SUMMARY | 2024-12-04 07:57 | XMS_ITS | Encounter Summary ---
Author Organization [facility] Address [address] [place] [address] Care Team Providers Care Potato Chip Frier Name Role Phone Susan La MD Primary Care Provider Bridgett Zavala MD Primary Care Prov ider [facility], Pcp Primary Care Provider Unavailabl e Reason for Visit * Reason Comments E-prescribe Rx Request Encounter Details Date Type Department Care Team Description 08/22/2020 Refill Adult Medicine [address] [address] Susan La MD E-prescribe Rx Request Social [...] N/A Patients current insurance carrier is: Payor: [facility] / Plan: PPO $20 [place] [id number] / Product Type: PPO [id number] documented in this encounter Plan of Treatment Not on file documented as of this encounter Visit Diagnoses Not on filedocumented in this encounter Care Teams Potato Chip Frier Relationship Specialty Start Date End Date Susan La MD PCP - General 09/08/00 01/20/22 Bridgett Schulz MD [address] [place] [address] PCP - General Internal Medicine 01/21/22 01/13/23 [place] [address] PCP - General Internal Medicine 01/14/23 documented as of this encounter
--- OUTSIDE RECORDS SUMMARY | 2024-12-04 07:57 | XMS_ITS | Encounter Summary ---
Author Organization [facility] Address [address] [place] [address] Care Team Providers Care Multimedia Project Manager Name Role Phone Susan La MD Primary Care Provider Bridgett Zavala MD Primary Care Prov ider [facility], Pcp Primary Care Provider [facility] Encounter Details Date Type Department Care Team Description 09/20/2016 Pt. Referral Request [facility] MyChart [address] [place] [address] Md Jude Social History Tobacco Use Types [...] on filedocumented in this encounter Care Teams Multimedia Project Manager Relationship Specialty Start Date End Date Susan La MD PCP - General 09/08/00 01/20/22 Bridgett Schulz MD [address] [place] [address] PCP - General Internal Medicine 01/21/22 01/13/23 [facility], Pcp [address] [place], [place] [phone] PCP - General Internal Medicine 01/14/23 documented as of this encounter
--- OUTSIDE RECORDS SUMMARY | 2024-12-04 07:57 | XMS_ITS | Encounter Summary ---
Author Organization [facility] Address [facility] [place] [address] Care Team Providers Care Shooter Helper Name Role Phone Susan La MD Primary Care Provider Bridgett Zavala MD Primary Care Prov ider [facility], Pcp Primary Care Provider Unavailabl e Reason for Visit * Reason Onset Date Comments sinus infection 10/19/2021 URI Symptoms 10/19/2021 Encounter Details Date Type Department Care Team Description 10/19/2021 Pt. Non Urgent Medic al Question Adult Medicine [address] [address] Susan La MD Social History Tobacco Use [...] the results of my ER visit to [facility]. They recommended me to share these [...] on filedocumented in this encounter Care Teams Shooter Helper Relationship Specialty Start Date End Date Susan La MD PCP - General 09/08/00 01/20/22 Bridgett Schulz MD [address] [place] [address] PCP - General Internal Medicine 01/21/22 01/13/23 [facility], [address] [address] PCP - General Internal Medicine 01/14/23 documented as of this encounter
--- OUTSIDE RECORDS SUMMARY | 2024-12-04 07:57 | XMS_ITS | Encounter Summary ---
Author Organization [facility] Address [address] [place] [address] Care Team Providers Care Director Of Land Acquisition Name Role Phone Susan La MD Primary Care Provider Bridgett Zavala MD Primary Care Prov ider [facility], Pcp Primary Care Provider [facility] Encounter Details Date Type Department Care Team Description 09/28/2016 Pt. Referral Request [facility] MyChart [address] [place] [address] Md Jude Social History Tobacco Use Types [...] in this encounter Care Teams Director Of Land Acquisition Relationship Specialty Start Date End Date Susan La MD PCP - General 09/08/00 01/20/22 Bridgett Schulz MD [address] [place] [address] PCP - General Internal Medicine 01/21/22 01/13/23 [facility], Pcp [address] [place], [place] [phone] PCP - General Internal Medicine 01/14/23 documented as of this encounter
--- OUTSIDE RECORDS SUMMARY | 2024-12-04 07:57 | XMS_ITS | Encounter Summary ---
Author Organization [facility] Address [facility] [place] [address] Care Team Providers Care Chairman Emeritus Name Role Phone Susan La MD Primary Care Provider Bridgett Zavala MD Primary Care Prov ider [facility], Pcp Primary Care Provider [facility] Encounter Details Date Type Department Care Team Description 09/04/2014 Hospital Medical Records [address] [place] [address] Maya Krishnan MD Social History Tobacco Use Types Packs/Day [...] on filedocumented in this encounter Care Teams Chairman Emeritus Relationship Specialty Start Date End Date Susan La MD PCP - General 09/08/00 01/20/22 Bridgett Schulz MD [address] [place] [address] PCP - General Internal Medicine 01/21/22 01/13/23 [facility], Pcp [address] [place], [place] [phone] PCP - General Internal Medicine 01/14/23 documented as of this encounter
--- OUTSIDE RECORDS SUMMARY | 2024-12-04 07:57 | XMS_ITS | Encounter Summary ---
Author Organization [facility] Address [address] [place] [address] Care Team Providers Care Stem Maker Name Role Phone Susan La MD Primary Care Provider Bridgett Zavala MD Primary Care Prov ider [facility], Pcp Primary Care Provider [facility] Encounter Details Date Type Department Care Team Description 05/23/2014 Pt. Non Urgent Medic al Question Adult Medicine [address] [address] Suasn La MD Social History Tobacco Use Types [...] of this encounter Progress Notes * Margo GarciaPDarlynNDarlyn - 05/23/2014 8:57 AM ESTFrom: Dianna Ellington To: Susan La MD Sent: 05/23/2014 5:57 AM EST Subject: Blood stains Good morning! For the last 5 days I have found blood stains in my underwear. Could I get an order for an urinalysis? I don't have to see Dr. Kc until next year but it's easier to contact you. I am also having intermittent headaches and some back pain. Thank you for your help! Have a great day! documented in this encounter Plan of Treatment Not on file documented as of this encounter Visit Diagnoses Not on filedocumented in this encounter Care Teams Stem Maker Relationship Specialty Start Date End Date Susan La MD PCP - General 09/08/00 01/20/22 Aquilino Ureña, Bridgett Jernigan MD [address] [place] [address] PCP - General Internal Medicine 01/21/22 01/13/[address] [address] PCP - General Internal Medicine 01/14/23 documented as of this encounter
--- OUTSIDE RECORDS SUMMARY | 2024-12-04 07:57 | XMS_ITS | Encounter Summary ---
Author Organization [facility] Address [address] [place] [address] Care Team Providers Care Transfer Knitter Name Role Phone Susan La MD Primary Care Provider Bridgett Zavala MD Primary Care Prov ider [facility], Pcp [facility] Encounter Details Date Type Department Care Team Description 01/30/2021 Orders Only Medical Records [address] [place] [address] Margaux Colbert MD [address] [place] [address] Social History Tobacco Use Types Packs/Day Years [...] PM EDT documented as of this encounter Progress Notes * Dillon Colbert MD - 02/21/2021 4:59 PM EDT Dear Ms. Ellington,The polyp(s) that were removed during your colonoscopy were precancerous, but benign. Fortunately, we removed them and therefore, they will not cause any more problems in the future. Based on the number, the size, and the features of the polyp(s) removed, I recommend a follow-up colonoscopy in 5 years. Before, the 5 years are due, we will send you a reminder in the mail asking you to contact our office to have the colonoscopy scheduled. I would like to personally thank you for allowing us to take care of you. Please don't hesitate to call us for any questions or concerns. Regards, Adria Colbert MD Board Certified Gastroenterology and Internal Medicine Transplant Hepatology [facility] documented in this encounter Plan of Treatment Not on file documented as of this encounter Procedures Procedure Name Priority Date/Time Associated Diagnosis Comments OUTSIDE PATHOLOGY Routine 01/27/2021 documented in this encounter Results * OUTSIDE PATHOLOGY (01/27/2021) Margaux Colbert MD OUTSIDE LAB documented in this encounter Visit Diagnoses Not on filedocumented in this encounter Care Teams Transfer Knitter Relationship Specialty Start Date End Date Susan La MD PCP - General 09/08/00 01/20/22 Bridgett Schulz MD [address] [place] [address] PCP - General Internal Medicine 01/21/22 01/13/23 [place] [phone] PCP - General Internal Medicine 01/14/23 documented as of this encounter
--- OUTSIDE RECORDS SUMMARY | 2024-12-04 07:57 | XMS_ITS | Encounter Summary ---
Author Organization [facility] Address [address] [place] [address] Care Team Providers Care Crane Ladle Person Name Role Phone Susan La MD Primary Care Provider Bridgett Zavala MD Primary Care Prov ider [facility], Pcp [facility] Encounter Details Date Type Department Care Team Description 01/13/2021 Refill Gastroenterology - [address] [place] [phone] Margaux Colbert MD [address] [place] [address] Social History Tobacco Use Types Packs/Day Years [...] on filedocumented in this encounter Care Teams Crane Ladle Person Relationship Specialty Start Date End Date Susan La MD PCP - General 09/08/00 01/20/22 Bridgett Schulz MD [address] [place] [address] PCP - General Internal Medicine 01/21/22 01/13/23 [facility], Pcp [address] [place] [address] PCP - General Internal Medicine 01/14/23 documented as of this encounter
--- OUTSIDE RECORDS SUMMARY | 2024-12-04 07:57 | XMS_ITS | Encounter Summary ---
Author Organization [facility] Address [address] [place] [address] Care Team Providers Care Strand Forming Machine Operator Name Role Phone Susan La MD Primary Care Provider Bridgett Zavala MD Primary Care Prov ider [facility], Pcp Primary Care Provider Unavailabl e Reason for Visit * Reason Onset Date Comments other 05/20/2010 LEFT MESSSAGE TO CONTACT THE OFFICE Encounter Details Date Type Department Care Team Description 05/20/2010 Telephone Adult Medicine - [address] [address] Susan La MD other (LEFT MESSSAGE TO [...] AM EDT PLEASE TRANSFER CALL TO EXT :[phone] documented in this encounter Plan of Treatment Not on file documented as of this encounter Visit Diagnoses Not on filedocumented in this encounter Care Teams Strand Forming Machine Operator Relationship Specialty Start Date End Date Susan La MD PCP - General 09/08/00 01/20/22 Bridgett Schulz MD [address] [place] [address] PCP - General Internal Medicine 01/21/22 01/13/23 [facility], [address] [address] PCP - General Internal Medicine 01/14/23 documented as of this encounter
--- OUTSIDE RECORDS SUMMARY | 2024-12-04 07:57 | XMS_ITS | Encounter Summary ---
Author Organization [facility] Address [address] [place] [address] Care Team Providers Care Convention Services Director Name Role Phone Susan La MD Primary Care Provider Bridgett Zavala MD Primary Care Prov ider [facility], Pcp Primary Care Provider Unavailabl e Reason for Visit * Reason Comments E-prescribe Rx Request Encounter Details Date Type Department Care Team Description 11/19/2020 Refill Adult Medicine [address] [address] Susan La MD E-prescribe Rx Request Social [...] have Coronavirus / COVID-19? Unable to assess 11/04/2020 8:18 AM EDT documented as of this encounter Miscellaneous Notes * Telephone Encounter - Lizeth Alba M.A. - 11/19/2020 10:22 AM EDT Lab Results Component Value Date HGBA1C 6.2 10/05/2020 MALBUR 253.0 05/07/2020 MALBCR 361.4 05/07/2020 CHOL 165 09/15/2019 LDL 86 09/15/2019 HDL 55 09/15/2019 TRIG 120 09/15/2019 GLU 116 10/05/2020 CREAT 1.31 10/05/2020 * Telephone Encounter - Ayleen Dhaliwal - 11/19/2020 7:44 AM EDT Patient would like script to be: E-PRESCRIBED/FAXED TO PHARMACY WHEN WAS THE PATIENT'S LAST APPOINTMENT IN ADULT MEDICINE? 09/30/2020 WHEN WAS THE LAST TIME THE PATIENT SAW THEIR PCP? Same as above Does patient have an upcoming appointment? Yes 03/16/2021 (THE MEDICATION REQUESTED IS ON THE MED [...] N/A Patients current insurance carrier is: Payor: [facility] / Plan: PPO $20 [place] [id number] / Product Type: PPO [id number] documented in this encounter Plan of Treatment Not on file documented as of this encounter Visit Diagnoses Not on filedocumented in this encounter Care Teams Convention Services Director Relationship Specialty Start Date End Date Susan La MD PCP - General 09/08/00 01/20/22 Aquilino Ureña, Bridgett Jernigan MD [address] [place] [phone] PCP - General Internal Medicine 01/21/22 01/13/23 [facility], Pcp [address] [place] [address] PCP - General Internal Medicine 01/14/23 documented as of this encounter
--- OUTSIDE RECORDS SUMMARY | 2024-12-04 07:57 | XMS_ITS | Encounter Summary ---
Author Organization [facility] Address [address] [place] [address] Care Team Providers Care Intervention Teacher Name Role Phone Susan La MD Primary Care Provider Bridgett Zavala MD Primary Care Prov ider [facility], Pcp Primary Care Provider [facility] Encounter Details Date Type Department Care Team Description 10/05/2021 Refill Nephrology [facility] [address] [place] [address] Gumaro Kc MD [address] [place] [phone] Social History Tobacco Use Types Packs/Day Years [...] on filedocumented in this encounter Care Teams Intervention Teacher Relationship Specialty Start Date End Date Susan La MD PCP - General 09/08/00 01/20/22 Bridgett Schulz MD [address] [place] [phone] PCP - General Internal Medicine 01/21/22 01/13/23 [facility], Pcp [address] [place] [address] PCP - General Internal Medicine 01/14/23 documented as of this encounter
--- OUTSIDE RECORDS SUMMARY | 2024-12-04 07:57 | XMS_ITS | Encounter Summary ---
Author Organization [facility] Address [address] [place] [address] Care Team Providers Care Speech Teacher Name Role Phone Susan La MD Primary Care Provider Bridgett Zavala MD Primary Care Prov ider [facility], Pcp Primary Care Provider Unavailabl e Reason for Referral * Non WALLY (Routine) - Authorized/Booked Specialty Diagnoses / Procedures Referred By Jessica t Referred To Contact Gastroenterology Procedures REFERRAL TO GASTROENTEROLOGY Siddharth Cervantes CNM [address] [place] [address] Jason Patel MD Referral ID Status Reason Start Date Expiration Date V isits Requested Visits Authorized [id number] Authorized/ Booked 11/25/2020 11/25/2021 12 12 Reason for Visit * Reason Onset Date Comments Orders Call 11/25/2020 Encounter Details Date Type Department Care Team Description 11/25/2020 Telephone Adult Medicine [address] [address] Siddharth Cervantes CNM [address] [place] [address] Orders Call Social History Tobacco Use Types Packs/Day Years [...] Telephone Encounter - Gómez Armenta M.A. - 11/25/2020 4:38 PM EDT noted * Telephone Encounter - Susan La - 11/25/2020 4:25 PM EDT Bone density and repeat colonosocpoy ordered * Telephone Encounter - Viviane Turner M.A. - 11/25/2020 3:49 PM EDT On 03.26.2019 Siddharth Cervantes ordered ref to GI for screening Colonoscopy, and bone density testing. Pt never had testing, wants tests reordered Last appt with pcp 09/30/20 documented in this encounter Plan of Treatment Not on file documented as of this encounter Visit Diagnoses Diagnosis Osteoarthritis of spine with radiculopathy, cervical region- Primary documented in this encounter Care Teams Speech Teacher Relationship Specialty Start Date End Date Susan La MD PCP - General 09/08/00 01/20/22 Bridgett Schulz MD [address] [place] [address] PCP - General Internal Medicine 01/21/22 01/13/23 [facility], Pcp [address] [place] [address] PCP - General Internal Medicine 01/14/23 documented as of this encounter
--- OUTSIDE RECORDS SUMMARY | 2024-12-04 07:57 | XMS_ITS | Encounter Summary ---
Author Organization [facility] Address [address] [place] [address] Care Team Providers Care Residential Coordinator Name Role Phone Susan La MD Primary Care Provider Bridgett Zavala MD Primary Care Prov ider [facility], Pcp Primary Care Provider [facility] Encounter Details Date Type Department Care Team Description 10/29/2020 Pt. Non Urgent Medical Question Nephrology - [address] [address] Gumaro Kc MD [address] [place] [address] Social History Tobacco Use Types Packs/Day Years [...] filedocumented in this encounter Care Teams Residential Coordinator Relationship Specialty Start Date End Date Susan La MD PCP - General 09/08/00 01/20/22 Bridgett Schulz MD [address] [place] [phone] PCP - General Internal Medicine 01/21/22 01/13/23 [facility], [address] [address] PCP - General Internal Medicine 01/14/23 documented as of this encounter
[2024-12-04 08:01] VITALS: BP 124/80; PULSE 79; O2SAT 99; BMI 33.2
== END 2024-12-04 08:45 | disposition home or self-care (01) ==
LOC: HO.RHE 07:53
PROVIDERS: PCP Internal Medicine; Visit Provider Student in an Organized Health Care Education/Training Program
DX: L40.50 Arthropathic psoriasis, unspecified (principal); M79.7 Fibromyalgia; Z79.631 Long term (current) use of antimetabolite agent
CPT/HCPCS: 99215

== ENCOUNTER → 2024-12-04 07:53 | Outpatient (BNVA) | payer OTHER, SELFPAY | PROVIDERS: PCP Internal Medicine; Visit Provider Student in an Organized Health Care Education/Training Program ==

== ENCOUNTER 2025-04-05 08:31 | Outpatient (REF) | payer OTHER, SELFPAY ==
--- OUTSIDE RECORDS SUMMARY | 2025-04-05 09:05 | XMS_ITS | Clinical Summary ---
Author Organization [facility] Address [address] [place] [phone] Phone Care Team Providers Care Civil Engineer Land Development Name Role Phone Susan La MD Primary Care Provider [phone] Allergies Active Allergy Reactions Criticality Noted Date [...] day if needed for muscle spasms Active primidone (MYSOLINE) 50 MG tablet Take 50 mg by mouth 5 09/12/19 26 Active Active Problems Problem Noted Date Diagnosed Date Chronic kidney disease, stage 2 (mild) 5 Glaucoma 06/26/2011 Asthma Spinal stenosis of cervical region Type 2 diabetes mellitus wit h diabetic chronic kidney disease Chronic sinusitis Diabetes mellitus Gastritis Fibromyalgia Hyperlipidemia Hypertension Proteinuria Obstructive sleep apnea syndrome Resolved Problems Problem Noted Date Diagnosed Date Resolved Date Chronic kidney disease stage 3 due to type 2 diabetes mellitus 09/24/2024 Encounters Date Type Department Care Team Description 03/25/2025 3:00 PM EDT Office Visit [facility] [address] [phone] Gumaro Kc MD Chronic kidney disease, stage 2 (mild) (Primary Dx); Type 2 diabetes mellitus with diabetic chronic kidney disease (HCC); Hypertension 01/29/2025 Orders Only [facility] [address] [phone] Gumaro Kc MD Chronic kidney disease, stage 2 (mild); Type 2 diabetes mellitus with diabetic chronic kidney disease (HCC); Hypertension from Last 3 Months Immunizations Immunization Administration Dates Next Due Influenza (IM) Preservative Free 023,05/10/2016,05/10/2014,05/22,06/06/2012,03/24/2011,08/26/2010 ,04/18/2009 Influenza, Injectable, Madin [place] Canine Kidney, Preservative Free 04/05/2024 Influenza, MDCK, [...] Sign Reading Time Taken Comments Blood Pressure 110/70 03/25/2025 3:07 PM EDT Pulse 69 03/25/2025 3:07 PM EDT Temperature - - Respiratory Rate - - Oxygen Saturation 98% 03/25/2025 3:07 PM EDT Inhaled Oxygen Concentration - - Weight 95.5 kg (210 lb 9.6 oz) 03/25/2025 3:07 P M EDT Height - - Body Mass Index - - Plan of Treatment Upcoming Encounters Date Type Department Care Team (Late st Contact Info) Description 03/31/2026 4:30 PM EDT Office Visit [facility] [address] [phone] Gumaro Kc MD [address] [phone] Health Maintenance Due Date Last Done Comments [...] Exam 07/10/2024 Diabetes: Visual Foot Exam 07/10/2024 Influenza Vaccine (#1) 2025 , 04/27/2023, 05/10/2022, Additional history exists Pneumococcal Vaccine: Peds (0 to 5 Years) and At-Risk Patients (6 to 49 Years) Discontinued 05/10/2014 Hepatitis B Vaccine Aged Out No longe r eligible based on patient's age to complete this topic Procedures Procedure Name Priority Date/Time Associated Diagnosis Comments PROTEIN / CREATININE RATIO, URINE Routine 02/02/2025 9:07 AM EDT Chronic kidney disease, stage 2 (mild) Type 2 diabetes mellitus with diabetic chronic kidney disease (HCC) Hypertension RENAL FUNCTION PANEL Routine 02/02/2025 9:07 AM EDT Chronic kidney disease, stage 2 (mild) Type 2 diabetes mellitus with diabetic chronic kidney disease (HCC) Hypertension from Last 3 Months Results * Urine Protein / creatinine ratio (02/02/2025 9:07 AM EDT) Creatinine, Ur 146.5 Not Estab. mg/dL [facility] Protein, Ur 22.2 Not Estab. mg/dL [facility] Urine Protein/Creatin ine Ratio 152 0 - 200 mg/g creat [facility] Urine specimen (specimen) Urine specimen obtained by clean catch procedure / Unknown 02/02/2025 9:07 AM EDT 02/02/2025 us Gumaro Kc MD LAB URINE ORDERABLES Final Resu lt [facility]CO [facility] [address] [place] [address] * (ABNORMAL) Renal function panel (02/02/2025 9:07 AM EDT) Glucose 94 70 - 99 mg/dL [facility] BUN 11 8 - 27 mg/dL [facility] Creatinine 1.03(H) 0.57 - 1.00 mg/dL [facility] eGFR CKD-EPI CR 2020 61 >59 mL/min/1.7 3 [facility] BUN/Creatinine Ratio 11(L) 12 - 28 [facility] Sodium 142 134 - 144 mmol/L [facility] Potassium 4.8 3.5 - 5.2 mmol/L [facility] Comment: Specimen received hemolyzed. Value may be increased by hemolysis. Clinical correlation indicated. Chloride 105 96 - 106 mmol/L [facility] Bicarbonate (CO2) 16(L) 20 - 29 mmol/L [facility] Calcium 9.4 8.7 - 10.3 mg/dL [facility] Phosphorus 4.2 3.0 - 4.3 mg/dL [facility] Albumin 4.5 3.9 - 4.9 g/dL [facility] Blood specimen (specimen) Venous blood / Unknown 02/02/2025 9:07 AM EDT 02/02/2025 us Gumaro Kc MD LAB BLOOD ORDERABLES Final Resu lt [facility] [address] [place] [address] from Last [address] [place] [address] Care Teams Civil Engineer Land Development Relationship Specialty Start Date End Date Susan La MD [address] [place] [address] PCP - General Internal Medicine 07/06/24
--- OUTSIDE RECORDS SUMMARY | 2025-04-05 09:05 | XMS_ITS | Clinical Summary ---
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 Microalbuminuria 05/21/2013 Overview (07/21/2024): Microalbumin was 120 on 12/20/2012. Nuclear sclerosis 05/21/2013 Overview (07/21/2024): NS bilat--taken from note of Dr. Yoon on 11/28/2012. Type 2 diabetes mellitus wit h cataract ([facility] V24, [facility] V28) 05/21/2013 Glaucoma 06/26/2011 Carpal tunnel syndrome, bilateral 12/08/2010 Cervical spondylosis with radiculopathy 12/09/19 11 Cervical stenosis of spinal canal 12/08/2010 Degenerative disc disease, cervical 12/08/2010 Herniated cervical disc 12/08/2010 Diabetes mellitus with renal complications ([facility] V24, [facility] V28) 08/26/2010 Hyperlipidemia with target LDL less than 100 05/2010 Overview (07/21/2024): [facility] update Major depressive disorder, r ecurrent episode, moderate ([facility] V24, [facility] V28) 07/16/2009 Sleep apnea 09/16/2006 Overview (07/21/2024): CPAP at night [facility] update Heartburn 07/25/2006 Irritable bowel syndrome 04/11/2005 Myalgia 04/11/2005 Overview (07/21/2024): [facility] update Essential hypertension, benign 02/19/2005 Immunizations Name [...] Surgery Date Site/Laterality Comments COLONOSCOPY 12/20/2001 PROCEDURE: [place] COLONOSCOPY STOMA DX INCLUDING COLLJ SPEC SPX; COMMENT: negative to 80 cm CERVICAL BIOPSY W/ LOOP ELEC TRODE EXCISION PROCEDURE: [place] CONIZATION CERVIX W/WO D&C RPR ELTRD EXC OTHER SURGICAL HISTORY PROCEDURE: LAPAROSCOPY PROCEDURE NEC; COMMENT: pt. reports endometriosis ([place]) SECTION PROCEDURE: HISTORICAL DELIVERY; COMMENT: Breech ESOPHAGOGASTRODUODENOSCOPY 07/12/2007 PROCEDURE: [place] EGD TRANSORAL BIOPSY SINGLE/MULTIPLE; COMMENT: Erosive gastritis-bx:Normal, Duodenitis, SB bx:Normal COLONOSCOPY 11/02/2007 PROCEDURE: [place] COLONOSCOPY STOMA DX INCLUDING COLLJ SPEC SPX; [...] kidney disease) stage 3, GFR 30-59 ml/min ([facility] V24, [facility] V28) 05/21/2013 DX:CKD (chronic kidney disea se) stage 3, GFR 30-59 ml/min ([facility]) Diabetes mellitus with renal complications ([facility] V24, [facility] V28) 08/26/2010 DX:Diabetes mellitus with re nal complications ([facility]) Degenerative disc disease, cervical 12/08/2010 DX:Degenerative disc disease, cervical Asthma 04/10/2014 DX:Asthma Asthma 04/10/2014 DX:Asthma Personal history of colonic polyps 06/08/2021 DX:Personal history of colonic polyps; COMMENT: Adenomatous polyp of the descending colon found at colonoscopy on 01/27/2021. Repeat colonoscopy in 5 years. Type 2 diabetes mellitus wit h cataract ([facility] V24, [facility] V28) 05/21/2013 DX:Type 2 diabetes mellitus with cataract ([facility]) Family History Medical History Relation Name Comments [...] 05/10/2022 10:56 AM EDT Plan of Treatment Upcoming Encounters Date Type Department Care Team (Late st Contact Info) Description 07/06/2025 10:10 AM EST Appointment Radiology Department - [address] [phone] Health Maintenance Due Date Last Done Comments Diabetes: Annual Foot Exam 09/18/1971 Diabetes: Annual Retina Eye Exam 09/18/1971 Pneumococcal Vaccine: 50+ Years (2 of 2 - PCV) 05/10/2015 05/10/2014 Zoster Vaccines (2 of 2) 07/16/2021 05/21/2021 RSV Immunization Adult Patients (1 - Risk 60-74 years 1-dose series) 2021 HIV Screening 06/26/2022 Social Influencers of Health Screening 06/26/2022 Diabetes: Blood Sugar Control Test (HGBA1C) 05/19/2023 11/16/2022 Diabetes: Annual GFR (Glomerular Filtration Rate) 11/17/2023 11/16/2022 Hypertension/CHF/CAD Annual BMP Blood Test 11/17/2023 11/16/2022 Depression Screening 07/18/2024 Diabetes: Annual Urine Albumin-Creatinine Ratio (uACR) 08/17/2024 08/17/2023 COVID-19 Vaccine ( season) 2025 07/29/2022, 05/21/2021, 10/16/2020, Additional history exists Influenza Vaccine (#1) 2025 , 04/27/2023, 05/10/2022, Additional history exists Colorectal Cancer Screening: Colonoscopy 01/27/2026 01/27/2021 Breast Cancer Screening 06/30/2026 06/30/20, 05/28/2023, 05/22/2022, Additional history exists Cervical Cancer Screening: HPV 04/02/2027 04/02/2022 Cholesterol Screening (Lipid Panel) 11/17/2027 11/16/2022 DTaP,Tdap,and Td Vaccines (3 - Td or Tdap) 03/29/2034 03/29/2024, 11/24/2011 Hepatitis C Screening Completed 03/28/2002 HIB Vaccines Aged Out No longer eligi [...] Signed Date: 06/30/2024 16:20 ET Workstation ID: [id number] Transcribed By: Self Edit Transcribed Date: 06/30/2024 16:16 ET Narrative 06/30/2024 4:20 PM EST EXAMINATION TYPE: MG MAMMO DIGITAL SCREENING W RUY BILAT DATE OF EXAM ORDERED: 06/30/2024 12:57 PM COMPARISON: Prior studies, latest from 05/28/2023. REASON FOR STUDY: Breast cancer screen, avg risk, asymptomatic (Age => 40y) TECHNIQUE: Bilateral mediolateral oblique and craniocaudal views were obtained digitally with 3-D mammogram (digital breast tomosynthesis) with CAD. Computer-aided detection was utilized in evaluation of this [...] detection was utilized in evaluation of thisexamination ([employer]; iCAD). FINDINGS: The breast tissue distribution pattern [...] Signed Date: 06/30/2024 16:20 ET Workstation ID: [id number] Transcribed By: Self Edit Transcribed Date: 06/30/2024 16:16 ET Result [facility] Bridgett Boo MD IMG BI PROCEDURES Final Result * Urine Albumin Creatinine Ratio (08/17/2023) Pathologist [facility] Urine Albumin Creatinine Ratio ABSTRACTED Result [facility] Provider HEALTH MAINTENANCE Final Result * Annual BMP Blood Test (11/16/2022) [facility] Annual BMP Blood Test ABSTRACTED Result [facility] Provider HEALTH MAINTENANCE Final Result * Hemoglobin A1c (11/16/2022) [facility] Hemoglobin A1C 6.2 <=6.5 % Blood Venous blood specimen / Unknown Result [facility] Provider LAB BLOOD ORDERABLES Sonja l Result * (ABNORMAL) Lipid panel (11/16/2022) [facility] LDL/HDL Ratio 3 0 - 4 Triglycerides 168(A) 0 - 150 mg/dL Cholesterol 158 0 - 200 mg/dL HDL 58 >=40 mg/dL LDL Cholesterol 67 0 - 100 mg/dL Blood Venous blood specimen / Unknown us Historical Provider LAB BLOOD ORDERABLES Sonja l Result * Cervical Cancer Screening: HPV (04/02/2022) Pathologist [facility] Cervical Cancer Screening: HPV NEGATIVE, ABSTRACTED Historical Provider HEALTH MAINTENANCE Final Result * Colonoscopy (01/27/2021) Pathologist [facility] Colonoscopy NO INTERPRETATION , ABSTRACTED Anatomical Region Laterality Modality Other Historical Provider HEALTH MAINTENANCE Final Result * Hepatitis C Screening (03/28/2002) Pathologist [facility] Hepatitis C Screening ABSTRACTED Historical Provider HEALTH MAINTENANCE Final Result from Last 3 Months or Most Recently Relevant to Health Maintenance Insurance [address] [place] [address] Care Teams Supply Teacher Relationship Specialty Start Date End Date Bridgett Boo MD PCP - General Internal Medicine 01/21/22
[2025-04-05 11:17] LABS: MANUAL DIFF FLAG NO
[2025-04-05 11:32] LABS: Hematocrit 35.5 % (37.0-47.0); Hemoglobin 11.8 g/dl (12.0-16.0); Imm Gran Abs Auto 0.04 X10*3/uL (0.00-0.03); Imm Gran Pct Auto 0.4 % (0.0-0.4); Lymphocytes Absolute Auto 2.9 X10*3/uL (1.2-4.9); Mean Corpuscular HGB Conc 33.2 g/dl (31.0-35.0); Mean Corpuscular Hemoglobin 29.3 pg (27.0-33.0); Mean Corpuscular Volume 88.1 fL (80.0-98.0); NRBC Abs Auto 0.000 X10*3/uL (0.0-0.012); NRBC Pct Auto 0.0 /100WBC (0.0-0.2); Platelet Count 351 X10*3/uL (160-400); Red Blood Count 4.03 X10*6/uL (4.20-5.50); White Blood Count 9.1 X10*3/uL (4.8-10.8)
[2025-04-05 12:01] LABS: Alanine Aminotransferase 18 U/L (0-31); Albumin Level 4.5 g/dL (3.5-5.0); Alkaline Phosphatase 95 U/L (39-117); Anion Gap 11 (12-20); Aspartate Amino Transferase 24 U/L (5-31); Blood Urea Nitrogen 11 mg/dL (9-16); Calcium 9.1 mg/dL (8.4-10.2); Carbon Dioxide 28 mmol/L (22-29); Chloride 106 mmol/L (96-108); Estimated Glomerular Filt Rate 45; Potassium 3.7 mmol/L (3.3-5.1); Sodium 141 mmol/L (135-145); Total Protein 7.5 g/dL (6.5-8.0)
== END 2025-04-05 08:32 | disposition home or self-care (01) ==
LOC: HO.HHCL 08:31
PROVIDERS: PCP Internal Medicine; Visit Provider Student in an Organized Health Care Education/Training Program
DX: L40.50 Arthropathic psoriasis, unspecified (principal)
CPT/HCPCS: 36415; 80053; 85025; 85652; 86140

== ENCOUNTER 2025-04-10 07:44 | Outpatient (AMB) | payer OTHER, SELFPAY ==
--- OUTSIDE RECORDS SUMMARY | 2025-04-10 07:47 | XMS_ITS | Clinical Summary ---
Author Organization [facility] Address [address] [place] [phone] Phone Care Team Providers Care Animal Attendants And Trainers Name Role Phone Susan La MD Primary Care Provider [phone] Allergies Active Allergy Reactions Criticality Noted Date [...] Office Visit [facility] [address] [phone] Gumaro Kc MD Chronic kidney disease, stage 2 (mild) (Primary Dx); Type 2 diabetes mellitus with diabetic chronic kidney disease (HCC); Hypertension 01/29/2025 Orders Only [facility] [address] [phone] Gumaro Kc MD Chronic kidney disease, stage 2 (mild); Type 2 diabetes mellitus with diabetic chronic kidney disease (HCC); Hypertension from Last 3 Months Immunizations Immunization Administration Dates Next Due Influenza (IM) Preservative Free 023,05/10/2016,05/10/2014,05/22,06/06/2012,03/24/2011,08/26/2010 ,04/18/2009 Influenza, Injectable, Madin [place] Canine Kidney, Preservative Free 04/05/2024 Influenza, MDCK, [...] Visit [facility] [address] [phone] Gumaro Kc MD [address] [phone] Health Maintenance Due Date Last Done Comments [...] Creatinine, Ur 146.5 Not Estab. mg/dL [facility] [place] Protein, Ur 22.2 Not Estab. mg/dL [facility] [place] Urine Protein/Creatin ine Ratio 152 0 - 200 mg/g creat [facility] [place] Urine specimen (specimen) Urine specimen obtained by clean catch procedure / Unknown 02/02/2025 9:07 AM EDT 02/02/2025 us Gumaro Kc MD LAB URINE ORDERABLES Final Resu lt LABCO [facility] [place] [address] [place] [address] * (ABNORMAL) Renal function panel (02/02/2025 9:07 AM EDT) Glucose 94 70 - 99 mg/dL [facility] BUN 11 8 - 27 mg/dL [facility] Creatinine 1.03(H) 0.57 - 1.00 mg/dL [facility] eGFR CKD-EPI CR 2020 61 >59 mL/min/1.7 3 [facility] BUN/Creatinine Ratio 11(L) 12 - 28 [facility] Sodium 142 134 - 144 mmol/L [facility] Potassium 4.8 3.5 - 5.2 mmol/L [facility] Comment: Specimen received hemolyzed. Value may be increased by hemolysis. Clinical correlation indicated. Chloride 105 96 - 106 mmol/L [facility] Bicarbonate (CO2) 16(L) 20 - 29 mmol/L [facility] Calcium 9.4 8.7 - 10.3 mg/dL [facility] Phosphorus 4.2 3.0 - 4.3 mg/dL [facility] Albumin 4.5 3.9 - 4.9 g/dL [facility] Blood specimen (specimen) Venous blood / Unknown 02/02/2025 9:07 AM EDT 02/02/2025 us Gumaro Kc MD LAB BLOOD ORDERABLES Final Resu lt [employer] [facility] [place] [address] [place] [address] from Last [address] [place] [address] Care Teams Animal Attendants And Trainers Relationship Specialty Start Date End Date Susan La MD [address] [place] [address] PCP - General Internal Medicine 07/06/24
--- OUTSIDE RECORDS SUMMARY | 2025-04-10 07:47 | XMS_ITS | Clinical Summary ---
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 Microalbuminuria 05/21/2013 Overview (07/21/2024): Microalbumin was 120 on 12/20/2012. Nuclear sclerosis 05/21/2013 Overview (07/21/2024): NS bilat--taken from note of Dr. Yoon on 11/28/2012. Type 2 diabetes mellitus wit h cataract ([facility] V24, [facility] V28) 05/21/2013 Glaucoma 06/26/2011 Carpal tunnel syndrome, bilateral 12/08/2010 Cervical spondylosis with radiculopathy 12/09/19 11 Cervical stenosis of spinal canal 12/08/2010 Degenerative disc disease, cervical 12/08/2010 Herniated cervical disc 12/08/2010 Diabetes mellitus with renal complications ([facility] V24, [facility] V28) 08/26/2010 Hyperlipidemia with target LDL less than 100 05/2010 Overview (07/21/2024): [facility] update Major depressive disorder, r ecurrent episode, moderate ([facility] V24, [facility] V28) 07/16/2009 Sleep apnea 09/16/2006 Overview (07/21/2024): CPAP at night [facility] update Heartburn 07/25/2006 Irritable bowel syndrome 04/11/2005 Myalgia 04/11/2005 Overview (07/21/2024): [facility] update Essential hypertension, benign 02/19/2005 Immunizations Name [...] LAPAROSCOPY PROCEDURE NEC; COMMENT: pt. reports endometriosis ([place]) SECTION PROCEDURE: HISTORICAL DELIVERY; COMMENT: Breech ESOPHAGOGASTRODUODENOSCOPY [...] kidney disease) stage 3, GFR 30-59 ml/min ([facility] V[facility], [facility] V28) 05/21/2013 DX:CKD (chronic kidney disea se) stage 3, GFR 30-59 ml/min ([facility]) Diabetes mellitus with renal complications ([facility] V24, [facility] V28) 08/26/2010 DX:Diabetes mellitus with re nal complications ([facility]) Degenerative disc disease, cervical 12/08/2010 DX:Degenerative disc disease, cervical Asthma 04/10/2014 DX:Asthma Asthma 04/10/2014 DX:Asthma Personal history of colonic polyps 06/08/2021 DX:Personal history of colonic polyps; COMMENT: Adenomatous polyp of the descending colon found at colonoscopy on 01/27/2021. Repeat colonoscopy in 5 years. Type 2 diabetes mellitus wit h cataract ([facility] V24, [facility] V28) 05/21/2013 DX:Type 2 diabetes mellitus with cataract ([facility]) Family History Medical History Relation [...] Labor Labor//3rd Weight Sex Type Anes PTL Lelsey A1 A5 Name Clin Term Term Last [...] 10:10 AM EST Appointment Radiology Department - [address] [phone] Health Maintenance Due Date Last Done Comments [...] Signed Date: 06/30/2024 16:20 ET Workstation ID: [id number] Transcribed By: Self Edit Transcribed Date: 06/30/2024 [...] Signed Date: 06/30/2024 16:20 ET Workstation ID: [id number] Transcribed By: Self Edit Transcribed Date: 06/30/2024 16:16 ET Result [facility] Bridgett Boo MD IMG BI PROCEDURES Final Result * Urine Albumin Creatinine Ratio (08/17/2023) Pathologist [facility] Urine Albumin Creatinine Ratio ABSTRACTED Result [facility] Provider HEALTH MAINTENANCE Final Result * Annual BMP Blood Test (11/16/2022) [facility] Annual BMP Blood Test ABSTRACTED Result [facility] Provider HEALTH MAINTENANCE Final Result * Hemoglobin A1c (11/16/2022) [facility] Hemoglobin A1C 6.2 <=6.5 % Blood Venous blood specimen / Unknown Result [facility] Provider LAB BLOOD ORDERABLES Sonja l Result * (ABNORMAL) Lipid panel (11/16/2022) [facility] LDL/HDL Ratio 3 0 - 4 Triglycerides 168(A) 0 - 150 mg/dL Cholesterol 158 0 - 200 mg/dL HDL 58 >=40 mg/dL LDL Cholesterol 67 0 - 100 mg/dL Blood Venous blood specimen / Unknown us Historical Provider LAB BLOOD ORDERABLES Sonja l Result * Cervical Cancer Screening: HPV (04/02/2022) Pathologist [facility] Cervical Cancer Screening: HPV NEGATIVE, ABSTRACTED Historical Provider HEALTH MAINTENANCE Final Result * Colonoscopy (01/27/2021) Pathologist [facility] Colonoscopy NO INTERPRETATION , ABSTRACTED Anatomical Region Laterality Modality Other Historical Provider HEALTH MAINTENANCE Final Result * Hepatitis C Screening (03/28/2002) Pathologist [facility] Hepatitis C Screening ABSTRACTED Historical Provider HEALTH MAINTENANCE Final Result from Last 3 Months or Most Recently Relevant to Health Maintenance [place] [address] [place] [address] Care Teams Charge Manager Relationship Specialty Start Date End Date Bridgett Boo MD PCP - General Internal Medicine 01/21/22
--- NOTE | 2025-04-10 08:03 | A.OFFVIS_ITS ---
Vital Signs 04/10/25 08:09 Height 5 ft 7 in Weight 208 lb 1.862 oz BMI 32.6 BP 122/80 Blood Pressure Location Lt brachial Position Sitting Pulse 69 Pulse Source Pulse Oximeter Pulse Oximetry (%) 99 Oxygen Delivery Method Room Air Intake Visit Reasons: f/u PsA Intake Note: Patient presents for PsA follow up. Allergies nystatin Allergy (Severe, Verified 04/10/25 08:08) Anaphylaxis latex Adverse Reaction (Unknown, Verified 04/10/25 08:08) Rash tetracycline Adverse Reaction (Unknown, Verified 04/10/25 08:08) Rash Medication List - Last Reconciled 04/10/25 by Arti Hairston MD albuterol sulfate 90 mcg/actuation inhalation bupropion HCl SR 150 mg PO QAM calcitriol mcg PO empagliflozin (Jardiance) 10 mg PO DAILY etanercept (Enbrel SureClick) 50 mg subcut QWEEK fluoxetine 40 mg PO DAILY folic acid 3 mg (3 x 1 mg) PO DAILY 90 days gabapentin 300 mg PO QID 90 days losartan 100 mg PO DAILY lovastatin 40 mg PO DAILY metformin ER 500 mg PO DAILY methotrexate sodium 15 mg (6 x 2.5 mg) PO QWEEK 90 days ondansetron 4 mg PO Q8H PRN primidone 50 mg PO DAILY spironolacton-hydrochlorothiaz 25-25 mg tabs PO tizanidine 2 mg PO BEDTIME HPI Comments Details: Patient is a 64-year-old female with depression, diabetes complicated by CKD stage 3, hypertension, hyperlipidemia, fibromyalgia and psoriatic arthritis here today for follow up Interval History: Patient last seen 12/04/2024 with me - On methotrexate 15mg weekly, lecovorin 10mg weekly - Patient states that she got worse pain when she took the leucovorin. She would take it the day after the methotrexate. Patient self discontinued the leucovorin and did not restart the methotrexate. - Despite stopping the leucovorin she continued to have pain involving the wrists, hands, and shoulders - No PsO - Recommended restarting methotrexate and leucovorin. Added folic acid 3mg due to mouth ulcers - Enbrel also added to the regimen Today - On methotrexate 15mg weekly, leucovorin 10mg weekly, folic acid 3mg and Enbrel 50mg SC weekly - States that she still has AM stiffness, that lasts about 10-15 minutes - Also still complaining of whole body pain her forearm is swollen, sometimes her left knee and right ankle. But these things happen usually with use - Still has diarrhea from methotrexate, this improved on folic acid 3mg. After taking the methotrexate she would go have diarrhea x 3 episodes then takes about 3-4 days before returning to normal and then she takes the methotrexate again which starts the cycle all over again - Also complaining of fatigue - No rashes but noting nail changes Rheumatologic History: Psoriatic arthritis dx 01/2024 MTX 01/2024 effective Initial history: This is a 63-year-old female who presents for evaluation of multiple joint pain and swelling. Patient states that she was diagnosed with fibromyalgia about 4 years ago. She was started on gabapentin at that time. She stated that back in August of 2023 she developed some redness of her eyes, she went to the eye doctor and was told that she has an infection. Afterwards she started developing multiple joint pain and swelling including her hands, wrists, ankles, knees. She went to the emergency room once and was given steroids with improvement. Since then she has been having intermittent episodes of joint pain and swelling affecting different joints. She has morning stiffness lasting 20-30 minutes. She takes Tylenol as needed but does not take any NSAIDs due to her history of CKD. She states that she was diagnosed with psoriasis 2-3 years ago based on nail psoriasis. States that she was evaluated by a crane mechanic and she had a nail biopsy. Father had psoriasis, she has a niece with psoriatic arthritis Patient denies any history of DVT/PE. She had 2 pregnancies, 1 live and 1 . Current Rheumatology Medication(s): Leucovorin 10mg once a week Methotrexate 15mg weekly Folic acid 3mg daily Enbrel 50mg SC weekly [facility] Medical History (Updated 04/10/25 @ 08:32 by Arti Hairston MD) Polyarthralgia NICHOLAS (obstructive sleep apnea) Obese Major depression Hyperlipidemia, unspecified IBS (irritable bowel syndrome) HTN (hypertension) Gastric acid decreased Fibromyalgia Endometrial hyperplasia CKD stage 3 due to type 2 diabetes mellitus Cholecystitis Cervical radiculopathy due to degenerative joint disease of spine CTS (carpal tunnel syndrome) Asthma Surgical History History of gastric surgery Previous section History of cholecystectomy Family History Mother Colon cancer Father Psoriasis Other Autoimmune disease Social History Alcohol intake: current Alcohol intake frequency: does not drink Patient Tobacco Use Status: Never used Tobacco Current occupational status: employed Current occupation: psychotherapist Review of Systems Const Details: Review of Systems Constitutional: Denies fever, chills, weight loss ENT: Denies vision changes, eye pain or eye redness, dental caries, dry mouth GI: Denies nausea, vomiting, diarrhea, abdominal pain, change in BM Pulm: Denies SOB, TANNER, hemoptysis, wheezing Cards: Denies chest pain, palpitations Skin: Denies Raynaud's, rash, nail changes, photosensitivity, DELIVERY AND INSTALLATION SUBCONTRACTOR: Denies headaches, weakness, paresthesias, recurrent falls MSK: as per HPI All other systems reviewed and are unremarkable except noted above Physical Exam Exam Exam: Vital signs reviewed Physical Examination CONSTITUITIONAL Patient alert and cooperative. Well appearing and in no apparent painful distress MSK Hands * Right Hand: Able to make a fist. No swelling. Tenderness to palpation of the MCPs, PIPs, DIPs. * Left Hand: Able to make a fist. No swelling. Tenderness to palpation of the MCPs, PIPs, DIPs. Wrists * Right Wrist: Full ROM to flexion and extension. No swelling but TTP noted * Left Wrist: Full ROM to flexion and extension. No swelling but TTP noted Elbows * Right Elbow: Full ROM. No swelling or TTP. No TTP of the medial epicondyle. No TTP of the lateral epicondyle * Left Elbow: Full ROM. No swelling or TTP. No TTP of the medial epicondyle. No TTP of the lateral epicondyle Shoulders * Right shoulder: Full ROM. No swelling noted. TTP of the AC joint and subacromial bursa. No TTP of the posterior shoulder * Left shoulder: Full ROM. No swelling noted. TTP of the AC joint and subacromial bursa. No TTP of the posterior shoulder Hip bursa: Tenderness to palpation bilaterally Knees * Right knee: Full ROM. No swelling noted. TTP of the knee joint line and pes anserine bursa * Left knee: Full ROM. No swelling noted. TTP of the knee joint line and pes anserine bursa Ankles * Right ankle: Good ankle dorsiflexion and plantar flexion. No swelling. No TTP of the ankle joint * Left ankle: Good ankle dorsiflexion and plantar flexion. No swelling. No TTP of the ankle joint Feet * Right foot: Positive squeeze test * Left foot: Positive squeeze test Tender points? * Tenderness to palpation of the bilateral trapezius, supraspinatus, anterior costochondral junctions, bilateral suboccipital muscle insertions SKIN Onycholysis noted to nails Vital Signs: Last Vital Signs Pulse 69 04/10/25 08:09 BP 122/80 04/10/25 08:09 Pulse Ox 99 04/10/25 08:09 Oxygen Delivery Method Room Air 04/10/25 08:09 BMI result Body Mass Index 32.6 Results Reviewed Results Reviewed: Laboratory Tests 11/23/24 04/05/25 08:33 08:43 WBC 9.1 RBC 4.03 L Hgb 11.8 L Hct 35.5 L Plt Count 351 ESR 25 H 28 H Sodium 141 Potassium 3.7 Chloride 106 Carbon Dioxide 28 BUN 11 Creatinine 1.22 Estimated GFR 45 AST 24 ALT 18 C-Reactive Protein 1.21 H 1.48 H Laboratory Tests 12/29/23 13:14 Rheumatoid Factor < 13.0 Cycl Citrul Peptide IgG <16 JAVIER Screen NEGATIVE SS-A/Ro Antibody <1.0 NEG SS-B/La Antibody <1.0 NEG Sm (Mark) Antibody <1.0 NEG SM/STRIP MACHINE TENDER IgG Antibody <1.0 NEG Double Strand DNA Ab 1 HLA-B27 Negative Laboratory Tests 11/23/24 08:33 Hepatitis A IgM Ab Nonreactive Hep Bs Antigen Negative Hep Bs Antibody NONREACTIVE Hep B Core Total Ab Nonreactive Hepatitis C Ab (EIA) Nonreactive TB Test (T-Spot) Com Negative Assessment & Plan Assessment & Plan (1) Psoriatic arthritis: Comment: dx 01/2024 MTX 01/2024 effective - 03/2025. Causes diarrhea Enbrel added but not effective Code(s): L40.50 - Arthropathic psoriasis, unspecified Category: Medical Plan: #PsA Patient is a 64-year-old female with psoriatic arthritis here today for follow up. Currently not in remission due to several tender joints: moderate - severe disease activity. Also methotrexate causing diarrhea despite the increase in folic acid. Will stop methotrexate, folic acid and Enbrel. 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) use of immunosuppressive biologic Plan: #Long-term Use of TNF Inhibitors: Humira Discussed with the patient the benefits and risks of TNF inhibitors for the management of the rheumatic condition Benefits include reduce pain, maintenance of remission and reduction of flares as well as progression of the disease Risks include injection sites/infusion reactions, serious infections (such as bacterial infections, opportunistic infections), malignancy, delaminating syndromes, autoimmune phenomena, CHF exacerbations, palmar plantar psoriasis and cytopenias Recommended rotating injection sites, and holding medication during and for up to 1 week after resolution of a febrile illness or open skin wound Plan I spent 40 minutes reviewing the record and labs, taking a history, examining the patient, discussing the treatment plan, ordering diagnostic work up, clinical time for PA and documenting in the medical record Orders: Orders Comprehensive Met. Panel 4 Months Z79.899 - Other retirement (current) drug therapy C Reactive Protein 4 Months Z79.899 - Other roasterman (current) drug therapy Complete Blood Count Auto Diff 4 Months Z79.899 - Other retirement (current) drug therapy Erythrocyte Sedimentation Rate 4 Months Z79.899 - Other roasterman (current) drug therapy Medications: New adalimumab (Humira(CF) Pen) 40 mg (0.4 mL) subcut Q2W 2 ea 5RF L40.50 - Arthropathic psoriasis, unspecified Refilled gabapentin 300 mg PO QID 360 caps 1RF 90 days M79.7 - Fibromyalgia Discontinued methotrexate sodium Discontinued Reason: Doctor's Order 15 mg (6 x 2.5 mg) PO QWEEK 90 days 78 tabs 1RF L40.50 - Arthropathic psoriasis, unspecified etanercept (Enbrel SureClick) Discontinued Reason: Doctor's Order 50 mg subcut QWEEK 4 mL 5RF L40.50 - Arthropathic psoriasis, unspecified folic acid Take every day except the day you take methotrexate Discontinued Reason: Doctor's Order 3 mg (3 x 1 mg) PO DAILY 90 days 270 tabs 1RF L40.50 - Arthropathic psoriasis, unspecified Coding Level of Care Code Est Pt Level 5 (95339) Complex EM visit Add On G2211 Diagnoses Psoriatic arthritis L40.50 Fibromyalgia M79.7 Encounter for monitoring of adalimumab therapy Z51.81; Z79.620
[2025-04-10 08:09] VITALS: BP 122/80; PULSE 69; O2SAT 99; BMI 32.6
== END 2025-04-10 08:36 | disposition home or self-care (01) ==
LOC: HO.RHES 07:45
PROVIDERS: PCP Internal Medicine; Visit Provider Student in an Organized Health Care Education/Training Program
DX: L40.50 Arthropathic psoriasis, unspecified (principal); M79.7 Fibromyalgia; Z51.81 Encounter for therapeutic drug level monitoring; Z79.620 Long term (current) use of immunosuppressive biologic
CPT/HCPCS: 99215